=== PATIENT | female | born 1960 | race Caucasian/White ===

== ENCOUNTER 2017-08-04 12:31 | Emergency (ER) | payer OTHER, SELFPAY ==
[2017-08-04 12:36] VITALS: BP 150/77; PULSE 98; RESP 18; TEMP 36.8; O2SAT 93; BMI 27.4
--- NOTE | 2017-08-04 13:09 | CT_ITS ---
STUDY: CT BRAIN WITHOUT CONTRAST REASON FOR EXAM: Female, 57 years old. Intermittent headaches. RADIATION DOSAGE (If Supplied By Facility): CTDIvol = ( 60.81 ) mGy, DLP = ( 1135.50 ) mGycm TECHNIQUE: Transaxial CT imaging of the brain was performed without administration of intravenous contrast material. Individualized dose optimization techniques were used for this CT. COMPARISON: None. FINDINGS: Normal soft tissue structures. Normal calvarium. Normal size ventricles and extra-axial spaces for the patient's age. Normal white matter tracts of the cerebral hemispheres. Normal basal ganglia and thalami. Normal brainstem. Normal cerebellum. There is no intracranial hemorrhage. There are no findings of an acute ischemic infarction. Mucosal thickening of the left frontal sinus. CT/Brain/Head without Contrast IMPRESSION: Mucosal thickening of the left frontal sinus. Electronically Signed: Kenny Stanton MD at 14:01 EST Tel [phone], Service support ,
[2017-08-04] MEDS: 0.9% Normal Saline 1,000 ML 250 ML IV (13:28)
[2017-08-04 13:30] VITALS: BP 125/76; PULSE 96; RESP 18; O2SAT 93
[2017-08-04 13:41] LABS: Absolute Lymphocyte Count 2.84 X10^3/ul (0.83-4.51); Absolute Neutrophil Count 2.2 X10^3/uL (2.0-7.7); Basophil# 0.02 X10^3/uL; Basophil% 0.3 % (0-1); Eosinophil# 0.19 X10^3/uL; Eosinophils% 3.3 % (0-5); Hematocrit 41.8 % (37-47); Hemoglobin 13.7 g/dl (12.0-15.0); Lymphocyte # 2.84 X10^3/ul (4.0); Lymphocyte % 48.8 % (19-41); Mean Corp Hgb Conc 32.8 g/gl (32-36); Mean Corpuscular Hgb 30.9 pg (27.0-32.0); Mean Corpuscular Volume 94.4 fL (81-99); Monocyte# 0.52 X10^3/uL; Monocyte% 8.9 % (0-10); Neutrophil # 2.24 X10^3/uL (2.7-7.7); Neutrophil % 38.5 % (47-70); Platelet Count 178 K/mm3 (150-450); RBC Distribution Width CV 13.2 % (11.6-14.6); RBC Distribution Width SD 45.2 fl (35.1-43.9); Red Blood Count 4.43 M/mm3 (4.2-5.4); White Blood Count 5.8 K/mm3 (4.4-11.0)
[2017-08-04 13:43] LABS: POSITIVE COUNT NO; POSITIVE DIFFERENTIAL NO; POSITIVE MORPHOLOGY NO
[2017-08-04 13:47] LABS: Erythrocyte Sedimentation Rate 27 mm/hr (0-30)
[2017-08-04 13:53] LABS: ALB/GLOB Ratio 0.8 RATIO (0.9-2.4); AST(SGOT) 73 U/L (15-37); Alanine Aminotransfer ALT/SGPT 105 U/L (13-56); Albumin, Serum 3.6 g/dL (3.2-5.0); Alkaline Phosphatase 144 U/L (45-117); Anion Gap 7 (5-15); BUN 9 mg/dL (7-18); BUN/Creat Ratio 10.4 RATIO (10-20); Calcium,Total 8.5 mg/dL (8.5-10.1); Chloride 109 mmol/L (98-107); Creatinine, Serum 0.87 mg/dL (0.55-1.02); EST Glomerular Filtration Rate 72 mL/min (>60); Est Glom Filt Rate - Afr Amer 87 mL/min (>60); Estimated Creatinine Clearance 56.43 ml/min; Globulin 4.3 g/dL (2.2-4.2); Glucose 139 mg/dL (74-106); Potassium 3.9 mmol/L (3.5-5.1); Protein, Total 7.9 g/dL (6.4-8.2); Sodium Level 141 mmol/L (136-145)
[2017-08-04 14:07] LABS: Lactic Acid 1.6 mmol/L (0.4-2.0)
[2017-08-04 14:28] VITALS: BP 146/77; PULSE 92; RESP 20; O2SAT 97
--- NOTE | 2017-08-04 14:39 | ED.RN ---
this rn in room to medicate pt. pt alternately moaning and crying. pt states omg it hurts so bad, i can't stand thispt continues with cloth over eyes refusing to look at rn. pt medicated. as this rn is talking pt peeks out under cloth and immediately sits up. pt states oh my I love your hair, I want to do that but am afraid pt . dr whitfield awaresits up, talks to this rn with eyes wide open, smile on face , exuberant demeanor. pt then begins can i have a bandage for my knee.. i was doing a ballerina twirl and hit it. pt then thanks this rn
[2017-08-04 14:54] VITALS: BP 142/68; PULSE 88; RESP 20; O2SAT 96
--- NOTE | 2017-08-04 15:44 | ED.VISSUMM ---
- ER Visit Summary Date of Service: 08/04/17 Chief Complaint: Headache with onset 3 days ago History of Present Illness: The patient is a 57 F history of rheumatoid arthritis, ankylosing Spondylitis was prescribed and Enbrel 2 months ago hence with severe bifrontal bitemporal retro-orbital headache that is worse with lights. She denies fever, chills or night sweats. She denies double vision, loss of vision or blurred vision. She denies pain with movement of her eyes. She denies rhinorrhea, postnasal drainage or sore throat. She denies ear pain. She has no history of migraine headaches. She denies any neck pain or stiffness. She denies any cardiac, respiratory or musculoskeletal symptoms. She denies dysuria, frequency, urgency or hematuria. She denies any skin lesions. She denies any paresthesia, anesthesia or motor weakness. She denies trouble with balance. There is no history of trauma. Of note answered most of the questions initially. I spoke to the bmw service technician because patient told her that her 30th anniversary and was able to get up from the examination, and get onto the CT table and appeared in no distress. I also was informed by her nurse, Laureano, that she twirled and even laughed at one point. She then began to cry and complain of severe frontal bitemporal headache.. When she was reexamined. She began to cry and stated she did not want to be taken off the Enbrel because she could not live in constant pain. Physical Examination: Elderly woman who has a wet rag and ice bag over her forehead. She has a rag over her eyes because of reported photophobia. There is pain to palpation over the frontal and maxillary sinuses. Pupils are equal round reactive. Extraocular muscles are intact. Funduscopic exam reveals no papilledema and there is no evidence of photophobia. Sclera is white and conjunctivae are pink. Neck is supple with no meningeal findings. Heart is regular without murmur, gallop or rub. S1 and S2 are normal. Lungs are clear to auscultation with good movement of air bilaterally. Abdomen is soft nontender. Patient is alert and oriented ?3. Motor is 5 over 5. Sensory is intact. DTRs are symmetric with no clonus or Babinski sign. Cranial 2 through 12 are intact. Cerebellar testing is normal. Test Results: T of the head reveals left maxillary mucosal thickening, only. White count is normal with 39% segs 0 bands 49% lymphs BMP is remarkable glucose 139. Hepatic profile reveals a ALT and AST of 105 and 73 which is slightly elevated from May 31, 2017. ESR is normal, 27. Emergency Department Course and Treatment: To evaluate patient's headache and the fact that she does not normally complain of headache is on immunosuppressive meds CT of the head as well as blood work was obtained. Because of her age of sed rate was obtained and because there is a concern for lupus-like presentation. Zofran was ordered which she declined. Her allergy is vomiting and diarrhea. She was treated with promethazine and morphine. There has been periods where she has been pain-free and happy and moments where she is in exquisite severe pain. A call was placed to her business objects architect and there is been no response. Spoke with Haleigh Kim protective services social worker. She states she will either see patient or have another protective services social worker see her. Treatment Plan: wire worker/case monitor to see patient and Disposition: Pending Plan is to discharge home after 30 mg of Toradol IV push. Outpatient follow-up at [facility]. Impression: 1. Acute bifrontal temporal headache of unknown etiology 2. History of autoimmune disorder on immunosuppressive meds 3. History of GERD This note was generated with [employer] dictation software. It may contain incorrect words, spelling, and punctuation that were not noted in review of the chart prior to signing ED Disposition - Plan for ED Patient: Disposition: Home or Assisted Living Chief Complaint: Headache Instructions: ED Cephalgia Unspecified Referrals: Benson Mckeon DO [Primary Care Provider] - As Needed
--- NOTE | 2017-08-04 16:00 | ED.DCSUM_ITS ---
- ER Visit Summary Date of Service: 08/04/17 Chief Complaint: Headache with onset 3 days ago History of Present Illness: The patient is a 57 F history of rheumatoid arthritis, ankylosing Spondylitis was prescribed and Enbrel 2 months ago hence with severe bifrontal bitemporal retro-orbital headache that is worse with lights. She denies fever, chills or night sweats. She denies double vision, loss of vision or blurred vision. She denies pain with movement of her eyes. She denies rhinorrhea, postnasal drainage or sore throat. She denies ear pain. She has no history of migraine headaches. She denies any neck pain or stiffness. She denies any cardiac, respiratory or musculoskeletal symptoms. She denies dysuria, frequency, urgency or hematuria. She denies any skin lesions. She denies any paresthesia, anesthesia or motor weakness. She denies trouble with balance. There is no history of trauma. Of note answered most of the questions initially. I spoke to the associate professor of radiology because patient told her that her 30th anniversary and was able to get up from the examination, and get onto the CT table and appeared in no distress. I also was informed by her nurse, Lauerano, that she twirled and even laughed at one point. She then began to cry and complain of severe frontal bitemporal headache.. When she was reexamined. She began to cry and stated she did not want to be taken off the Enbrel because she could not live in constant pain. Physical Examination: Elderly woman who has a wet rag and ice bag over her forehead. She has a rag over her eyes because of reported photophobia. There is pain to palpation over the frontal and maxillary sinuses. Pupils are equal round reactive. Extraocular muscles are intact. Funduscopic exam reveals no papilledema and there is no evidence of photophobia. Sclera is white and conjunctivae are pink. Neck is supple with no meningeal findings. Heart is regular without murmur, gallop or rub. S1 and S2 are normal. Lungs are clear to auscultation with good movement of air bilaterally. Abdomen is soft nontender. Patient is alert and oriented ?3. Motor is 5 over 5. Sensory is intact. DTRs are symmetric with no clonus or Babinski sign. Cranial 2 through 12 are intact. Cerebellar testing is normal. Test Results: T of the head reveals left maxillary mucosal thickening, only. White count is normal with 39% segs 0 bands 49% lymphs BMP is remarkable glucose 139. Hepatic profile reveals a ALT and AST of 105 and 73 which is slightly elevated from May 31, 2017. ESR is normal, 27. Emergency Department Course and Treatment: To evaluate patient's headache and the fact that she does not normally complain of headache is on immunosuppressive meds CT of the head as well as blood work was obtained. Because of her age of sed rate was obtained and because there is a concern for lupus-like presentation. Zofran was ordered which she declined. Her allergy is vomiting and diarrhea. She was treated with promethazine and morphine. There has been periods where she has been pain-free and happy and moments where she is in exquisite severe pain. A call was placed to her nursing informatics specialist and there is been no response. Spoke with Haleigh Kim director social. She states she will either see patient or have another director social see her. Treatment Plan: optical worker/dependency case manager to see patient and Disposition: Pending Plan is to discharge home after 30 mg of Toradol IV push. Outpatient follow-up at [facility]. Impression: 1. Acute bifrontal temporal headache of unknown etiology 2. History of autoimmune disorder on immunosuppressive meds 3. History of GERD This note was generated with [employer] dictation software. It may contain incorrect words, spelling, and punctuation that were not noted in review of the chart prior to signing ED Disposition - Plan for ED Patient: Disposition: Home or Assisted Living Chief Complaint: Headache Instructions: ED Cephalgia Unspecified Referrals: Benson Mckeon DO [Primary Care Provider] - As Needed
[2017-08-04] MEDS: Ketorolac 30 MG/ML Syringe IV (17:02)
[2017-08-04 17:05] VITALS: BP 128/72; PULSE 87; RESP 18; O2SAT 98
[2017-08-04 17:11] VITALS: BP 128/67; PULSE 88; RESP 18
== END 2017-08-04 17:24 | disposition home or self-care (01) ==
PROVIDERS: Emergency Provider Emergency Medicine; Family Provider Preventive Medicine Occupational Medicine; PCP Preventive Medicine Occupational Medicine
DX: R51 Headache (principal); M06.9 Rheumatoid arthritis, unspecified; M45.9 Ankylosing spondylitis of unspecified sites in spine; K21.9 Gastro-esophageal reflux disease without esophagitis; R11.2 Nausea with vomiting, unspecified; E66.9 Obesity, unspecified; Z79.899 Other long term (current) drug therapy
CPT/HCPCS: 70450; 80053; 83605; 85025; 85652; 96361; 96374; 96375; 96376; 99285; J7030; A4216; J2405

== ENCOUNTER → 2017-09-02 11:48 | Outpatient (CLI) | payer OTHER, SELFPAY ==
[2017-09-02 12:33] LABS: Absolute Lymphocyte Count 3.06 X10^3/ul (0.83-4.51); Absolute Neutrophil Count 1.7 X10^3/uL (2.0-7.7); Basophil# 0.02 X10^3/uL; Basophil% 0.4 % (0-1); Eosinophil# 0.18 X10^3/uL; Eosinophils% 3.2 % (0-5); Hematocrit 40.7 % (37-47); Hemoglobin 13.2 g/dl (12.0-15.0); Lymphocyte # 3.06 X10^3/ul (4.0); Lymphocyte % 54.9 % (19-41); Mean Corp Hgb Conc 32.4 g/gl (32-36); Mean Corpuscular Hgb 30.6 pg (27.0-32.0); Mean Corpuscular Volume 94.2 fL (81-99); Mean Platelet Vol. 9.3 fl (6.2-12.0); Monocyte# 0.58 X10^3/uL; Monocyte% 10.4 % (0-10); Neutrophil # 1.72 X10^3/uL (2.7-7.7); Neutrophil % 30.9 % (47-70); Platelet Count 191 K/mm3 (150-450); RBC Distribution Width CV 13.8 % (11.6-14.6); RBC Distribution Width SD 45.7 fl (35.1-43.9); Red Blood Count 4.32 M/mm3 (4.2-5.4); White Blood Count 5.6 K/mm3 (4.4-11.0)
[2017-09-02 12:34] LABS: POSITIVE COUNT NO; POSITIVE DIFFERENTIAL NO; POSITIVE MORPHOLOGY NO
[2017-09-02 13:12] LABS: ALB/GLOB Ratio 0.9 RATIO (0.9-2.4); AST(SGOT) 133 U/L (15-37); Alanine Aminotransfer ALT/SGPT 164 U/L (13-56); Albumin, Serum 3.8 g/dL (3.2-5.0); Alkaline Phosphatase 151 U/L (45-117); Anion Gap 10 (5-15); BUN 13 mg/dL (7-18); BUN/Creat Ratio 14.2 RATIO (10-20); Calcium,Total 9.1 mg/dL (8.5-10.1); Chloride 101 mmol/L (98-107); Creatinine, Serum 0.91 mg/dL (0.55-1.02); EST Glomerular Filtration Rate 67 mL/min (>60); Est Glom Filt Rate - Afr Amer 82 mL/min (>60); Globulin 4.2 g/dL (2.2-4.2); Glucose 139 mg/dL (74-106); Potassium 3.7 mmol/L (3.5-5.1); Sodium Level 137 mmol/L (136-145)
== END ==
PROVIDERS: Family Provider Preventive Medicine Occupational Medicine; PCP Preventive Medicine Occupational Medicine; Visit Provider Internal Medicine Rheumatology
DX: M06.09 Rheumatoid arthritis without rheumatoid factor, multiple sites (principal); M35.00 Sjogren syndrome, unspecified; M47.897 Other spondylosis, lumbosacral region; E78.5 Hyperlipidemia, unspecified; Q79.0 Congenital diaphragmatic hernia; F31.9 Bipolar disorder, unspecified; F90.9 Attention-deficit hyperactivity disorder, unspecified type; Z79.899 Other long term (current) drug therapy
CPT/HCPCS: 36415; 80053; 85025

== ENCOUNTER 2017-10-15 21:58 | Emergency (ER) | payer OTHER, SELFPAY ==
[2017-10-15 22:01] VITALS: BP 159/83; PULSE 101; RESP 17; TEMP 36; O2SAT 96; BMI 28.3
--- NOTE | 2017-10-15 22:28 | ED.VISSUMM ---
- ER Visit Summary Date of Service: 10/15/17 Chief Complaint: [] Itching History of Present Illness: The patient is a 57 F [] with a history of rheumatoid arthritis and other unknown autoimmune disease presents with itching in the bilateral upper and lower extremities. She reports symptoms started approximately 1 month ago with significant worsening the last 2-3 days. She is on Enbrel for her rheumatoid arthritis. She reports she has increasing liver enzymes for unknown reason which she attributes is the probably underlying cause for her itching. She appears anxious during history and physical examination. Denies fevers. Denies rash. Physical Examination: [] Afebrile, vital signs stable. 57-year-old female in no acute distress. No obvious rash to the bilateral upper and lower extremities. Small area of erythema secondary to scratching. Cardiovascular exam is regular rate and rhythm. Lungs clear to auscultation. Abdomen is soft and nontender. Remainder of exam is unremarkable. Test Results: [] None. Emergency Department Course and Treatment: [] Patient given Vistaril and prednisone orally with prescriptions for the same. She is reportedly seeing her specialist in [place] tomorrow. Treatment Plan: [] Follow-up with specialist tomorrow. Disposition: [] Discharge, stable. Impression: [] Urticaria This note was generated with [employer] dictation software. It may contain incorrect words, spelling, and punctuation that were not noted in review of the chart prior to signing ED Disposition - Plan for ED Patient: Chief Complaint: Itching Referrals: Benson Mckeon DO [Primary Care Provider] -
--- NOTE | 2017-10-15 22:31 | ED.DCSUM_ITS ---
- ER Visit Summary Date of Service: 10/15/17 Chief Complaint: [] Itching History of Present Illness: The patient is a 57 F [] with a history of rheumatoid arthritis and other unknown autoimmune disease presents with itching in the bilateral upper and lower extremities. She reports symptoms started approximately 1 month ago with significant worsening the last 2-3 days. She is on Enbrel for her rheumatoid arthritis. She reports she has increasing liver enzymes for unknown reason which she attributes is the probably underlying cause for her itching. She appears anxious during history and physical examination. Denies fevers. Denies rash. Physical Examination: [] Afebrile, vital signs stable. 57-year-old female in no acute distress. No obvious rash to the bilateral upper and lower extremities. Small area of erythema secondary to scratching. Cardiovascular exam is regular rate and rhythm. Lungs clear to auscultation. Abdomen is soft and nontender. Remainder of exam is unremarkable. Test Results: [] None. Emergency Department Course and Treatment: [] Patient given Vistaril and prednisone orally with prescriptions for the same. She is reportedly seeing her specialist in [place] tomorrow. Treatment Plan: [] Follow-up with specialist tomorrow. Disposition: [] Discharge, stable. Impression: [] Urticaria This note was generated with [employer] dictation software. It may contain incorrect words, spelling, and punctuation that were not noted in review of the chart prior to signing ED Disposition - Plan for ED Patient: Chief Complaint: Itching Referrals: Benson Mckeon DO [Primary Care Provider] -
--- NOTE | 2017-10-15 22:31 | ED.DEP ---
ED Disposition - Plan for ED Patient: Disposition: Home or Assisted Living Chief Complaint: Itching Instructions: ED Urticaria Prescriptions: Hydroxyzine Pamoate [Vistaril] 50 mg PO TID PRN PRN #15 cap PRN Reason: Itching Prednisone [Deltasone] 40 mg PO DAILY #5 tab Referrals: Benson Mckeon DO [Primary Care Provider] -
[2017-10-15] MEDS: predniSONE 20 MG Tablet 40 MG PO (22:45)
[2017-10-15] MEDS: hydrOXYzine PAM 25 MG Capsule PO (22:45)
== END 2017-10-15 22:48 | disposition home or self-care (01) ==
PROVIDERS: Emergency Provider Emergency Medicine; Family Provider Preventive Medicine Occupational Medicine; PCP Preventive Medicine Occupational Medicine
DX: L50.9 Urticaria, unspecified (principal); M06.9 Rheumatoid arthritis, unspecified; M35.9 Systemic involvement of connective tissue, unspecified; F32.9 Major depressive disorder, single episode, unspecified; Z79.899 Other long term (current) drug therapy
CPT/HCPCS: 99283

== ENCOUNTER 2017-11-18 20:10 | Emergency (ER) | payer OTHER, SELFPAY ==
[2017-11-18 20:11] VITALS: BP 133/86; PULSE 100; RESP 15; TEMP 36.8; BMI 28.3
--- NOTE | 2017-11-18 20:24 | EKG12_ITS ---
Test Reason : CP,N/V Blood Pressure : / mmHG Vent. Rate : 093 BPM Atrial Rate : 093 BPM P-R Int : 130 ms QRS Dur : 072 ms QT Int : 342 ms P-R-T Axes : 051 022 057 degrees QTc Int : 425 ms Normal sinus rhythm Normal ECG Confirmed by ANTONIA MEJÍA, DAVID ([id number]), metropolitan editor DAVID BENITEZ ([id number]) on 11/22/2017 2:22:12 PM Referred By: JANETH Confirmed By:DAVID KNIGHT MD
--- NOTE | 2017-11-18 20:24 | ED.VISSUMM ---
- ER Visit Summary Date of Service: 11/18/17 Chief Complaint: Nausea History of Present Illness: The patient is a 57 F who is had 5 days of nausea. She states that she is felt nauseous most of this week. She started with abdominal pain with it but that has since resolved. Denies diarrhea or constipation. She has not had vomiting with this. No fevers. No urinary symptoms. She states that last night she did develop some chest pressure. She has a history of elevated liver enzymes. The etiology of this is unknown. She is scheduled to see a air pollution engineer for this. Her primary care physician called her in Zofran but she has a history of migraines with this so she has not took it. Physical Examination: Vital signs reviewed. HEENT exam unremarkable. Heart is regular rate and rhythm without murmurs. Lungs are clear to auscultation. Abdomen is soft and nontender. Extremities reveal no edema. Peripheral pulses are equal. Skin exam normal. Neurologic exam normal. Test Results: [Laboratory studies are normal except for an alkaline phosphatase of 147, ALT 148, AST 141 Emergency Department Course and Treatment: Patient was given IV Phenergan. She states that her nausea is improved but not resolved. She does not like to take Zofran because it gives her migraine headaches. I will send her home with Phenergan. She has a gastroenterology appointment in a couple of weeks. She will keep this appointment and try to eat bland foods in the meantime. Treatment Plan: [] Disposition: Discharge Impression: Nausea This note was generated with [employer] dictation software. It may contain incorrect words, spelling, and punctuation that were not noted in review of the chart prior to signing ED Disposition - Plan for ED Patient: Chief Complaint: Nausea/Vomiting Referrals: Benson Mckeon DO [Primary Care Provider] -
[2017-11-18 20:25] VITALS: BP 128/80; PULSE 93; RESP 15; O2SAT 93
[2017-11-18 20:32] LABS: Absolute Lymphocyte Count 3.46 X10^3/ul (0.83-4.51); Absolute Neutrophil Count 1.8 X10^3/uL (2.0-7.7); Basophil# 0.01 X10^3/uL; Basophil% 0.2 % (0-1); Eosinophil# 0.16 X10^3/uL; Eosinophils% 2.6 % (0-5); Hematocrit 43.2 % (37-47); Hemoglobin 14.5 g/dl (12.0-15.0); Lymphocyte # 3.46 X10^3/ul (4.0); Lymphocyte % 56.9 % (19-41); Mean Corp Hgb Conc 33.6 g/gl (32-36); Mean Corpuscular Hgb 30.9 pg (27.0-32.0); Mean Corpuscular Volume 91.9 fL (81-99); Monocyte# 0.61 X10^3/uL; Neutrophil # 1.83 X10^3/uL (2.7-7.7); Neutrophil % 30.1 % (47-70); POSITIVE DIFFERENTIAL NO; Platelet Count 179 K/mm3 (150-450); RBC Distribution Width CV 13.5 % (11.6-14.6); RBC Distribution Width SD 45.7 fl (35.1-43.9); White Blood Count 6.1 K/mm3 (4.4-11.0)
[2017-11-18 20:33] LABS: POSITIVE COUNT NO; POSITIVE MORPHOLOGY NO
[2017-11-18] MEDS: proMETHazine 25 MG/ML Syringe 12.5 MG IV (20:41)
[2017-11-18 20:51] LABS: ALB/GLOB Ratio 0.9 RATIO (0.9-2.4); AST(SGOT) 141 U/L (15-37); Alanine Aminotransfer ALT/SGPT 148 U/L (13-56); Albumin, Serum 3.8 g/dL (3.2-5.0); Alkaline Phosphatase 147 U/L (45-117); Anion Gap 5 (5-15); BUN 8 mg/dL (7-18); BUN/Creat Ratio 7.6 RATIO (10-20); Calcium,Total 8.7 mg/dL (8.5-10.1); Chloride 105 mmol/L (98-107); Creatinine, Serum 1.05 mg/dL (0.55-1.02); EST Glomerular Filtration Rate 57 mL/min (>60); Est Glom Filt Rate - Afr Amer 69 mL/min (>60); Estimated Creatinine Clearance 46.75 ml/min; Globulin 4.2 g/dL (2.2-4.2); Glucose 96 mg/dL (74-106); Lipase 203 U/L (73-393); Potassium 3.9 mmol/L (3.5-5.1); Sodium Level 137 mmol/L (136-145)
--- NOTE | 2017-11-18 21:11 | ED.DEP ---
ED Disposition - Plan for ED Patient: Disposition: Home or Assisted Living Chief Complaint: Nausea/Vomiting Instructions: ED Nausea Vomiting Prescriptions: proMETHazine tablet [Phenergan] 25 mg PO Q6H PRN PRN #20 tab PRN Reason: Nausea Referrals: Benson Mckeon DO [Primary Care Provider] -
[2017-11-18 21:30] VITALS: BP 111/80; PULSE 85; RESP 16; O2SAT 94
== END 2017-11-18 21:31 | disposition home or self-care (01) ==
PROVIDERS: Emergency Provider Emergency Medicine; Family Provider Preventive Medicine Occupational Medicine; PCP Preventive Medicine Occupational Medicine
DX: R11.0 Nausea (principal); R74.0 Nonspecific elevation of levels of transaminase and lactic acid dehydrogenase [LDH]; R07.9 Chest pain, unspecified; M19.90 Unspecified osteoarthritis, unspecified site; Z79.899 Other long term (current) drug therapy
CPT/HCPCS: 80053; 83690; 84484; 85025; 93005; 96361; 96374; 99283; J7030; J7040; A4216

== ENCOUNTER 2017-12-14 23:32 | Emergency (ER) | payer OTHER, SELFPAY ==
[2017-12-14 23:33] VITALS: BP 127/77; PULSE 97; RESP 18; TEMP 36.7; O2SAT 92; BMI 27.2
--- NOTE | 2017-12-14 23:42 | ED.VISSUMM ---
- ER Visit Summary Date of Service: 12/14/17 Chief Complaint: Back pain History of Present Illness: The patient is a 57 F presenting with back pain. States this started yesterday. 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 She has pain in her lower back. It radiates to her left leg. She has had no bowel or bladder incontinence. No numbness or weakness. She is able to ambulate. She tried ibuprofen, Valium, Ultram at home. Physical Examination: Vitals are stable. Patient is afebrile. Alert no acute distress. HEENT exam is unremarkable. Neck is supple. Lungs are clear and equal bilaterally. Heart is regular rate and rhythm. Abdomen is soft nontender nondistended. Back: Bilateral lumbar paraspinal muscle tenderness with no midline tenderness. Extremities are unremarkable. Skin is warm and dry. No focal neurologic deficit. Remainder of exam is unremarkable. Emergency Department Course and Treatment: Patient given morphine and Phenergan IM. She is feeling improved. She is advised to rest and continue her home medications. She is advised return to ED for worsening complaints. Disposition: Discharge home Impression: Lumbar strain This note was generated with [employer] dictation software. It may contain incorrect words, spelling, and punctuation that were not noted in review of the chart prior to signing ED Disposition - Plan for ED Patient: Chief Complaint: Back Referrals: Benson Mckeon DO [Primary Care Provider] -
[2017-12-14] MEDS: Morphine 4 MG/ML Syringe 8 MG IM (23:55)
[2017-12-15] MEDS: proMETHazine 25 MG/ML Syringe 6.25 MG IM (00:10)
--- NOTE | 2017-12-15 00:26 | ED.DEP ---
ED Disposition - Plan for ED Patient: Chief Complaint: Back Instructions: ED Sprain Strain Lumbar Referrals: Benson Mckeon DO [Primary Care Provider] -
[2017-12-15 00:36] VITALS: PULSE 68; RESP 16; O2SAT 98
== END 2017-12-15 00:37 | disposition home or self-care (01) ==
LOC: ED 12-15 00:07
PROVIDERS: Emergency Provider Emergency Medicine; Family Provider Preventive Medicine Occupational Medicine; PCP Preventive Medicine Occupational Medicine
DX: S39.012A Strain of muscle, fascia and tendon of lower back, initial encounter (principal); X50.1XXA Overexertion from prolonged static or awkward postures, initial encounter; Y93.H2 Activity, gardening and landscaping; Y92.9 Unspecified place or not applicable; Y99.9 Unspecified external cause status; Z79.899 Other long term (current) drug therapy
CPT/HCPCS: 96372; 99282

== ENCOUNTER 2017-12-20 21:52 | Emergency (ER) | payer OTHER, SELFPAY ==
[2017-12-20 21:53] VITALS: BP 132/78; PULSE 97; RESP 20; TEMP 36.1; O2SAT 94; BMI 28.2
--- NOTE | 2017-12-20 22:33 | ED.DCSUM_ITS ---
- ER Visit Summary Date of Service: 12/20/17 Chief Complaint: Back pain History of Present Illness: The patient is a 57 F worsening back pain today after playing with her grandkids, she states she was lifting them, one weight 60 pounds. Increasing pain. There is no falls or direct injuries. Seen 6 days ago for similar when she was working in the yard. She is on Valium and Ultram for chronic sciatica symptoms. States pain on the left leg. No loss of bowel or bladder control. Also history of rheumatoid arthritis, she has an appointment with her rheumatoid arthritis physician in [place] tomorrow. Patient states she ran out of her Advil. None taken today. Last dose of medication was 5 hours ago. Symptoms worse with movement. States when she was here 6 days ago, she given a shot of morphine and Phenergan which helped her symptoms. Her symptoms were improved prior to symptoms recurring today. Physical Examination: General: Alert and oriented ?3, no acute distress HEENT: Normocephalic, atraumatic. Moist mucosa membranes Neck: supple, nontender. Cardiovascular: Regular rate and rhythm, no murmurs Respiratory: Normal breath sounds, symmetric, no distress Back: No midline tenderness. Mild tender palpation left lumbar. Straight leg test negative. 2+ patellar reflexes. Abdomen: Soft, nontender, nondistended Extremities: Nontender, no edema, pulses intact ?4 Neuro: no focal neurological deficits. Test Results: [] Emergency Department Course and Treatment: Patient with no cauda equina symptoms. Will treat with subcu morphine, IM Phenergan due to patient states needing nausea medicines with her opiate medications. She did not take any NSAIDs a day, IM Toradol was given. No history of gastric ulcers or kidney injuries. She continue with Advil at home. She has her home Valium and Ultram to continue. She will keep her appointment with her rheumatoid physician tomorrow. All questions were answered. Treatment Plan: [] Disposition: Discharge Impression: Acute lumbar strain This note was generated with [employer] dictation software. It may contain incorrect words, spelling, and punctuation that were not noted in review of the chart prior to signing ED Disposition - Plan for ED Patient: Disposition: Home or Assisted Living Chief Complaint: Back Diagnosis: Acute lumbar myofascial strain Instructions: ED Sprain Strain Lumbar Referrals: Linda,Benson, DO [Primary Care Provider] - 3-5 Days
[2017-12-20] MEDS: Ketorolac 60 MG/2 ML Vial IM (22:53)
[2017-12-20] MEDS: proMETHazine 25 MG/ML Syringe 12.5 MG IM (22:54)
[2017-12-20] MEDS: Morphine 4 MG/ML Syringe SC (22:54)
[2017-12-20 23:06] VITALS: BP 125/72; PULSE 87; RESP 14; O2SAT 94
== END 2017-12-20 23:34 | disposition home or self-care (01) ==
PROVIDERS: Emergency Provider Emergency Medicine; Family Provider Preventive Medicine Occupational Medicine; PCP Preventive Medicine Occupational Medicine
DX: S39.012A Strain of muscle, fascia and tendon of lower back, initial encounter (principal); X50.9XXA Other and unspecified overexertion or strenuous movements or postures, initial encounter; Y93.9 Activity, unspecified; Y92.9 Unspecified place or not applicable; Y99.9 Unspecified external cause status; M06.9 Rheumatoid arthritis, unspecified; Z79.899 Other long term (current) drug therapy
CPT/HCPCS: 96372; 99282

== ENCOUNTER 2017-12-24 22:04 | Emergency (ER) | payer OTHER, SELFPAY ==
[2017-12-24 22:04] VITALS: BP 121/86; PULSE 96; RESP 20; TEMP 36.4; O2SAT 95; BMI 28.3
--- NOTE | 2017-12-24 22:30 | ED.VISSUMM ---
- ER Visit Summary Date of Service: 12/24/17 Chief Complaint: Back pain History of Present Illness: The patient is a 57 F presenting with back pain ?2 weeks. Patient states that she was chasing her grandson and this exacerbated her chronic back pain. She has an appointment with an arthritis specialist tomorrow morning in [place]. She states she cannot tolerate the pain until then. She has Tylenol and Ultram at home. She denies fever. Denies bowel or bladder incontinence. Denies numbness or weakness. She is able to ambulate with pain. Physical Examination: Vitals are stable. Patient is afebrile. Alert no acute distress. HEENT exam is unremarkable. Neck is supple. Lungs are clear and equal bilaterally. Heart is regular rate and rhythm. Abdomen is soft nontender nondistended. Back: Bilateral paraspinal lumbar muscle tenderness with no midline tenderness Extremities are unremarkable. Skin is warm and dry. No focal neurologic deficit. Normal strength and sensation Remainder of exam is unremarkable. Emergency Department Course and Treatment: Patient is given morphine, Phenergan IM. Patient is feeling much improved. She is advised to follow-up with her scheduled appointment tomorrow. Advised return to ED for worsening complaints. Disposition: Discharge home Impression: Acute on chronic back pain This note was generated with [employer] dictation software. It may contain incorrect words, spelling, and punctuation that were not noted in review of the chart prior to signing ED Disposition - Plan for ED Patient: Chief Complaint: Back Instructions: ED Neck Back Pain General Referrals: Benson Mckeon DO [Primary Care Provider] -
[2017-12-24] MEDS: proMETHazine 25 MG/ML Syringe 12.5 MG IM (22:41)
[2017-12-24] MEDS: morphine 8 MG/ML Syringe IM (22:41)
--- NOTE | 2017-12-24 23:25 | ED.DEP ---
ED Disposition - Plan for ED Patient: Chief Complaint: Back Instructions: ED Neck Back Pain General Referrals: Benson Mckeon DO [Primary Care Provider] -
[2017-12-24 23:50] VITALS: BP 122/86; PULSE 92; RESP 14; O2SAT 99
== END 2017-12-24 23:51 | disposition home or self-care (01) ==
LOC: ED 22:55
PROVIDERS: Emergency Provider Emergency Medicine; Family Provider Preventive Medicine Occupational Medicine; PCP Preventive Medicine Occupational Medicine
DX: M54.9 Dorsalgia, unspecified (principal); G89.29 Other chronic pain; Z79.899 Other long term (current) drug therapy
CPT/HCPCS: 96372; 99282

== ENCOUNTER 2018-01-15 12:58 | Emergency (ER) | payer OTHER, SELFPAY ==
[2018-01-15 12:59] VITALS: BP 149/93; PULSE 101; RESP 20; TEMP 36.8; O2SAT 92; BMI 27.5
[2018-01-15] MEDS: Ketorolac 15 MG/ML Vial IV (14:44)
[2018-01-15] MEDS: Metoclopramide 10 MG/2 ML Vial 5 MG IV (14:44)
[2018-01-15] MEDS: Morphine 4 MG/ML Syringe IV (14:44)
--- NOTE | 2018-01-15 15:21 | ED.VISSUMM ---
- ER Visit Summary Date of Service: 01/15/18 Chief Complaint: Bilateral low back pain History of Present Illness: The patient is a 57 F who presents with bilateral low back pain without radiculopathy. She denies bowel or bladder dysfunction other chronic problems for which she is scheduled for surgery to have a bladder stimulator placed. She denies foot drop. Denies quadricep weakness going up or down steps. She denies saddle paresthesia anesthesia. She prefers to sit versus standing. She reports chronic lower abdominal pain. She denies fever, chills night sweats. Her trauma was she reached for something and strained her back. She does have history of rheumatoid arthritis, depression and GERD, as well. She did report numbness lateral aspect proximal left leg only. Physical Examination: Blood pressure slightly elevated at 143/93. Patient has a depressed affect. HEENT exam is unremarkable. Heart is regular without murmur, gallop or rub. S1 and S2 are normal. Lungs are clear to auscultation with good movement of air bilaterally. Abdomen is remarkable for superpubic discomfort, which is a chronic problem. Examination low back reveals no abdomen allergy. Straight leg test is negative. Patella and ankle reflex are 1+ symmetric. EHL is intact. There is no clonus or Babinski sign. She has normal sensation. DP PT pulses are palpable. Test Results: None Emergency Department Course and Treatment: IV was established she was medicated with opiate analgesia and given Reglan because of reported allergy to Zofran. When she was reassessed at 1525. She was smiling with 95% reduction of her pain. Treatment Plan: Discharged home to follow with PCP Disposition: Discharged home in stable improved condition Impression: Bilateral low back pain without sciatica This note was generated with [employer] dictation software. It may contain incorrect words, spelling, and punctuation that were not noted in review of the chart prior to signing ED Disposition - Plan for ED Patient: Chief Complaint: Back Instructions: ED Sprain Strain Lumbar Referrals: Benson Mckeon DO [Primary Care Provider] - As Needed
[2018-01-15 15:22] VITALS: BP 109/68; PULSE 80; RESP 16; O2SAT 93
--- NOTE | 2018-01-15 15:24 | ED.DCSUM_ITS ---
- ER Visit Summary Date of Service: 01/15/18 Chief Complaint: Bilateral low back pain History of Present Illness: The patient is a 57 F who presents with bilateral low back pain without radiculopathy. She denies bowel or bladder dysfunction other chronic problems for which she is scheduled for surgery to have a bladder stimulator placed. She denies foot drop. Denies quadricep weakness going up or down steps. She denies saddle paresthesia anesthesia. She prefers to sit versus standing. She reports chronic lower abdominal pain. She denies fever, chills night sweats. Her trauma was she reached for something and strained her back. She does have history of rheumatoid arthritis, depression and GERD, as well. She did report numbness lateral aspect proximal left leg only. Physical Examination: Blood pressure slightly elevated at 143/93. Patient has a depressed affect. HEENT exam is unremarkable. Heart is regular without murmur, gallop or rub. S1 and S2 are normal. Lungs are clear to auscultation with good movement of air bilaterally. Abdomen is remarkable for superpubic discomfort, which is a chronic problem. Examination low back reveals no abdomen allergy. Straight leg test is negative. Patella and ankle reflex are 1 + symmetric. EHL is intact. There is no clonus or Babinski sign. She has normal sensation. DP PT pulses are palpable. Test Results: None Emergency Department Course and Treatment: IV was established she was medicated with opiate analgesia and given Reglan because of reported allergy to Zofran. When she was reassessed at 1525. She was smiling with 95% reduction of her pain. Treatment Plan: Discharged home to follow with PCP Disposition: Discharged home in stable improved condition Impression: Bilateral low back pain without sciatica This note was generated with [employer] dictation software. It may contain incorrect words, spelling, and punctuation that were not noted in review of the chart prior to signing ED Disposition - Plan for ED Patient: Chief Complaint: Back Instructions: ED Sprain Strain Lumbar Referrals: Benson Mckeon DO [Primary Care Provider] - As Needed
== END 2018-01-15 15:39 | disposition home or self-care (01) ==
PROVIDERS: Emergency Provider Emergency Medicine; Family Provider Preventive Medicine Occupational Medicine; PCP Preventive Medicine Occupational Medicine
DX: M54.5 Low back pain (principal); R20.0 Anesthesia of skin; M06.9 Rheumatoid arthritis, unspecified; K21.9 Gastro-esophageal reflux disease without esophagitis; F32.9 Major depressive disorder, single episode, unspecified; Z79.899 Other long term (current) drug therapy
CPT/HCPCS: 96374; 96375; 99283

== ENCOUNTER 2018-03-09 23:05 | Emergency (ER) | payer OTHER, SELFPAY ==
[2018-03-09 23:05] VITALS: BP 123/73; PULSE 90; RESP 18; TEMP 37; O2SAT 96; BMI 28.3
--- NOTE | 2018-03-09 23:42 | ED.VISSUMM ---
- ER Visit Summary Date of Service: 03/09/18 Chief Complaint: Back pain History of Present Illness: The patient is a 57 F worsening lower back pain since yesterday. History of rheumatoid arthritis with chronic back pain on Enbrel injections. Followed by rheumatology in [place]. States there is plans of possible infusion. She gets tramadol prescription by her PCP. EGD a month ago in [place] was told she had gastritis. No melena. Denies any loss of bowel or bladder control. Pain worse with movement. No fevers. Physical Examination: General: Alert and oriented ?3, no acute distress HEENT: Normocephalic, atraumatic. Moist mucosa membranes Neck: supple, nontender. Cardiovascular: Regular rate and rhythm, no murmurs Respiratory: Normal breath sounds, symmetric, no distress Abdomen: Soft, nontender, nondistended Back: No midline tenderness, reproducible paralumbar tenderness. Straight leg test negative bilaterally. 1+ patellar reflex bilaterally. Extremities: Nontender, no edema, pulses intact ?4 Neuro: no focal neurological deficits. Test Results: [] Emergency Department Course and Treatment: Patient similar presentation in the past. New lifting activities causing her symptoms. No cauda equina symptoms. Treated morphine subcu along with normal Phenergan injection for nausea symptoms. We will hold on NSAIDs due to her reported history of recent gastritis from EGD a month ago. She states she had elevated liver enzymes are for Tylenol cannot be taken also. She does have prescription of Ultram. She will follow-up as an outpatient. All questions were answered. Treatment Plan: [] Disposition: Discharge Impression: 1. Acute lumbar sacral strain 2. Acute on chronic back pain This note was generated with [employer] dictation software. It may contain incorrect words, spelling, and punctuation that were not noted in review of the chart prior to signing ED Disposition - Plan for ED Patient: Disposition: Home or Assisted Living Chief Complaint: Back Diagnosis: Lumbar strain Instructions: ED Sprain Strain Lumbar Referrals: Benson Mckeon DO [Primary Care Provider] - 3-5 Days
--- NOTE | 2018-03-09 23:45 | ED.DCSUM_ITS ---
- ER Visit Summary Date of Service: 03/09/18 Chief Complaint: Back pain History of Present Illness: The patient is a 57 F worsening lower back pain since yesterday. History of rheumatoid arthritis with chronic back pain on Enbrel injections. Followed by rheumatology in [place]. States there is plans of possible infusion. She gets tramadol prescription by her PCP. EGD a month ago in [place] was told she had gastritis. No melena. Denies any loss of bowel or bladder control. Pain worse with movement. No fevers. Physical Examination: General: Alert and oriented ?3, no acute distress HEENT: Normocephalic, atraumatic. Moist mucosa membranes Neck: supple, nontender. Cardiovascular: Regular rate and rhythm, no murmurs Respiratory: Normal breath sounds, symmetric, no distress Abdomen: Soft, nontender, nondistended Back: No midline tenderness, reproducible paralumbar tenderness. Straight leg test negative bilaterally. 1+ patellar reflex bilaterally. Extremities: Nontender, no edema, pulses intact ?4 Neuro: no focal neurological deficits. Test Results: [] Emergency Department Course and Treatment: Patient similar presentation in the past. New lifting activities causing her symptoms. No cauda equina symptoms. Treated morphine subcu along with normal Phenergan injection for nausea symptoms. We will hold on NSAIDs due to her reported history of recent gastritis from EGD a month ago. She states she had elevated liver enzymes are for Tylenol cannot be taken also. She does have prescription of Ultram. She will follow-up as an outpatient. All questions were answered. Treatment Plan: [] Disposition: Discharge Impression: 1. Acute lumbar sacral strain 2. Acute on chronic back pain This note was generated with [employer] dictation software. It may contain incorrect words, spelling, and punctuation that were not noted in review of the chart prior to signing ED Disposition - Plan for ED Patient: Disposition: Home or Assisted Living Chief Complaint: Back Diagnosis: Lumbar strain Instructions: ED Sprain Strain Lumbar Referrals: Benson Mckeon DO [Primary Care Provider] - 3-5 Days
[2018-03-10] MEDS: proMETHazine 25 MG/ML Syringe 12.5 MG IM (00:01)
[2018-03-10] MEDS: Morphine 4 MG/ML Syringe SC (00:01)
[2018-03-10 00:31] VITALS: BP 127/84; PULSE 67; RESP 18; O2SAT 97
== END 2018-03-10 00:31 | disposition home or self-care (01) ==
LOC: ED 03-10 00:18
PROVIDERS: Emergency Provider Emergency Medicine; Family Provider Preventive Medicine Occupational Medicine; PCP Preventive Medicine Occupational Medicine
DX: S39.012A Strain of muscle, fascia and tendon of lower back, initial encounter (principal); X58.XXXA Exposure to other specified factors, initial encounter; Y93.9 Activity, unspecified; Y92.9 Unspecified place or not applicable; Y99.9 Unspecified external cause status; R74.8 Abnormal levels of other serum enzymes; M06.9 Rheumatoid arthritis, unspecified; M54.9 Dorsalgia, unspecified; G89.29 Other chronic pain; Z79.899 Other long term (current) drug therapy
CPT/HCPCS: 96372; 99282

== ENCOUNTER 2018-03-14 21:31 | Emergency (ER) | payer OTHER, SELFPAY ==
[2018-03-14 21:31] VITALS: BP 168/91; PULSE 97; RESP 14; TEMP 36.5; O2SAT 95; BMI 28.6
--- NOTE | 2018-03-14 23:32 | ED.VISSUMM ---
- ER Visit Summary Date of Service: 03/14/18 Chief Complaint: Back pain History of Present Illness: The patient is a 57 F who presents with back pain. She has a history of chronic back pain. She is currently undergoing a rheumatology workup including for possible porphyria. She is currently on Enbrel but they are considering starting Remicade. She states her back pain has been worse since yesterday and particularly today. She has had several ER visits in the last couple of months requiring treatment with subcutaneous morphine. She also complains of a developing headache today. No fevers. No vomiting. He has some chronic lower abdominal discomfort related to a mesh repair but no new or abnormal abdominal pain out of her usual. She denies urinary retention or fecal incontinence. No prior back surgeries. Physical Examination: Afebrile vitals are normal Moist mucous members Heart regular rate and rhythm Lungs are clear Abdomen soft nontender nondistended Straight leg raise negative bilaterally Extremities nontender no edema palpable pulses normal strength and sensation with 5 out of 5 dorsiflexion, plantarflexion, extensor hallucis longus Test Results: Not indicated Emergency Department Course and Treatment: Patient presents with acute exacerbation of chronic back pain. She notes that this is similar in character and location to her previous pain. She was recently diagnosed with gastritis had also also had elevated liver enzymes so cannot take Tylenol or ibuprofen. She has been taking tramadol. We will give oxycodone here and a prescription for short course of the same. I stressed the importance of developing a pain management plan with her primary care provider or perl developer or pain management. She understands return for new or worsening symptoms and was discharged home. Treatment Plan: [] Disposition: Discharge Impression: Acute on chronic back pain This note was generated with [employer] dictation software. It may contain incorrect words, spelling, and punctuation that were not noted in review of the chart prior to signing ED Disposition - Plan for ED Patient: Chief Complaint: Back Referrals: Benson Mckeon DO [Primary Care Provider] -
--- NOTE | 2018-03-14 23:34 | ED.DEP ---
ED Disposition - Plan for ED Patient: Chief Complaint: Back Instructions: ED Sciatica, ED Chronic Pain Management Prescriptions: Oxycodone [Oxyir] 5 mg PO Q6H PRN PRN 3 Days #12 tab PRN Reason: Pain Referrals: Benson Mckeon DO [Primary Care Provider] -
[2018-03-14] MEDS: oxyCODONE 5 MG Tablet 10 MG PO (23:43)
[2018-03-14 23:45] VITALS: BP 142/69; PULSE 82; RESP 16
== END 2018-03-14 23:46 | disposition home or self-care (01) ==
LOC: ED 23:31
PROVIDERS: Emergency Provider Emergency Medicine; Family Provider Preventive Medicine Occupational Medicine; PCP Preventive Medicine Occupational Medicine
DX: M54.9 Dorsalgia, unspecified (principal); G89.29 Other chronic pain; R51 Headache; K21.9 Gastro-esophageal reflux disease without esophagitis; Z79.899 Other long term (current) drug therapy
CPT/HCPCS: 99283

== ENCOUNTER → 2018-03-17 11:02 | Outpatient (CLI) | payer OTHER, SELFPAY ==
[2018-03-17 12:21] LABS: Absolute Lymphocyte Count 4.07 X10^3/ul (0.83-4.51); Absolute Neutrophil Count 2.3 X10^3/uL (2.0-7.7); Basophil# 0.01 X10^3/uL; Basophil% 0.1 % (0-1); Eosinophil# 0.18 X10^3/uL; Eosinophils% 2.5 % (0-5); Hematocrit 42.3 % (37-47); Hemoglobin 13.8 g/dl (12.0-15.0); Lymphocyte # 4.07 X10^3/ul (4.0); Lymphocyte % 56.8 % (19-41); Mean Corp Hgb Conc 32.6 g/gl (32-36); Mean Corpuscular Hgb 31.7 pg (27.0-32.0); Mean Platelet Vol. 9.5 fl (6.2-12.0); Monocyte# 0.59 X10^3/uL; Monocyte% 8.2 % (0-10); Neutrophil % 32.3 % (47-70); POSITIVE COUNT NO; POSITIVE DIFFERENTIAL NO; POSITIVE MORPHOLOGY NO; Platelet Count 192 K/mm3 (150-450); RBC Distribution Width CV 13.9 % (11.6-14.6); Red Blood Count 4.36 M/mm3 (4.2-5.4); White Blood Count 7.2 K/mm3 (4.4-11.0)
[2018-03-17 12:26] LABS: ALB/GLOB Ratio 0.8 RATIO (0.9-2.4); AST(SGOT) 182 U/L (15-37); Alanine Aminotransfer ALT/SGPT 170 U/L (13-56); Albumin, Serum 3.9 g/dL (3.2-5.0); Alkaline Phosphatase 160 U/L (45-117); Amylase 68 U/L (25-115); Anion Gap 10 (5-15); BUN 10 mg/dL (7-18); BUN/Creat Ratio 8.4 RATIO (10-20); Calcium,Total 9.4 mg/dL (8.5-10.1); Chloride 102 mmol/L (98-107); Creatinine, Serum 1.19 mg/dL (0.55-1.02); EST Glomerular Filtration Rate 50 mL/min (>60); Est Glom Filt Rate - Afr Amer 60 mL/min (>60); Ferritin 106 ng/mL (8-252); GGTP 185 U/L (5-55); Globulin 4.6 g/dL (2.2-4.2); Glucose 118 mg/dL (74-106); Iron 67 ug/dL (50-170); Iron Binding Capacity,Total 382 ug/dL (250-450); Lipase 230 U/L (73-393); PERCENT IRON SATURATION 17.5 % (15.0-55.0); Potassium 3.8 mmol/L (3.5-5.1); Protein, Total 8.5 g/dL (6.4-8.2); Sodium Level 139 mmol/L (136-145)
[2018-03-17 13:28] LABS: International Normalized Ratio 1.1; Prothrombin Time (Protime)PT. 13.9 SECONDS (11.7-14.9)
[2018-03-17 13:29] LABS: Partial Thromboplast Time 31.7 Seconds (24.1-36.2)
[2018-03-19 18:43] LABS: ANTINUCLEAR ANTIBODIES DIRECT Negative (Negative)
[2018-03-20 11:22] LABS: Alpha Antitrypsin Serum 180 mg/dL (90-200); Anti-Mitochondrial AB <20.0 Units (0.0-20.0)
[2018-03-20 12:07] LABS: Ceruloplasmin 34.5 mg/dL (19.0-39.0); HEPATITIS B SURFACE AG Negative (Negative); Hepatitis B Core Ab Total Negative (Negative); Immunoglobulin A 365 mg/dL (87-352); Immunoglobulin E 49 IU/mL (0-100); Immunoglobulin G 1536 mg/dL (700-1600); Immunoglobulin M 103 mg/dL (26-217); PROEL- Albumin 3.9 g/dL (2.9-4.4); PROEL- Alpha-1 Globulin 0.3 g/dL (0.0-0.4); PROEL- Alpha-2 Globulin 0.7 g/dL (0.4-1.0); PROEL- Beta Globulin 1.6 g/dL (0.7-1.3); PROEL- Gamma Globulin 1.3 g/dL (0.4-1.8); PROEL- Globulin, Total 3.9 g/dL (2.2-3.9); PROEL- TOTAL PROTEIN 7.8 g/dL (6.0-8.5)
[2018-03-21 09:22] LABS: Anti-Smooth Muscle ABS 17 Units (0-19); Hep B Surface Antibodies Non Reactive (.); Hep C Antibodies 0.1 s/co ratio (0.0-0.9); Hepatitis A AB, Total Negative (Negative)
== END ==
PROVIDERS: Family Provider Preventive Medicine Occupational Medicine; PCP Preventive Medicine Occupational Medicine
DX: R74.0 Nonspecific elevation of levels of transaminase and lactic acid dehydrogenase [LDH] (principal)
CPT/HCPCS: 36415; 80053; 82103; 82150; 82390; 82728; 82784; 82785; 82977; 83516; 83540; 83550; 83690; 84165; 85025; 85610; 85730; 86038; 86704; 86706; 86708; 86803; 87340

== ENCOUNTER 2018-05-04 09:29 | Emergency (ER) | payer OTHER, SELFPAY ==
[2018-05-04 09:31] VITALS: BP 168/72; PULSE 89; RESP 16; TEMP 36.2; O2SAT 97; BMI 29.3
[2018-05-04] MEDS: Ketorolac 30 MG/ML Syringe 15 MG IV (10:17)
[2018-05-04] MEDS: Metoclopramide 10 MG/2 ML Vial IV (10:21)
[2018-05-04] MEDS: DiphenhydrAMINE 50 MG/ML Syringe 25 MG IV (10:21)
--- NOTE | 2018-05-04 10:51 | ED.RN ---
PT reports feeling worse with meds, increased anxiety and head feels like in a vise. MD notified and new medication ordered. Pharmacy called for meds. PT aware.
--- NOTE | 2018-05-04 11:19 | ED.RN ---
Computer in room without power. I plugged it in, still not working. Medication given with appropriate checks.
[2018-05-04 11:20] VITALS: BP 126/60; PULSE 82; RESP 16; O2SAT 94
--- NOTE | 2018-05-04 12:50 | ED.DCSUM_ITS ---
- ER Visit Summary Date of Service: 05/04/18 Chief Complaint: Unilateral left-sided headache that is dull and aching and transient vertigo History of Present Illness: The patient is a 58 F who was diagnosed with migraine headaches one year ago. She presents with a left-sided throbbing headache that is been intermittent over the past 1-2 weeks. She also reports blurred vision. She is uncertain whether the blurred vision was monocular or binocular. She does report vertigo which she describes as spinning when she turns to the left. She did report nausea with the vertigo. She denied double vision. She denies trouble with speech or swallowing. She denies cough, shortness of breath or difficulty breathing. She denies chest pain, palpitations or rapid heartbeat. She denies dyspnea, dyspnea on exertion, orthopnea or PND. GI negative other than nausea. negative. She denies myalgias, arthralgias, neck pain or stiffness. She denies generalized weakness, paresthesia, anesthesia or motor weakness. Please read written note for complete detail Physical Examination: Vital signs noted and blood pressure is elevated 168/72. Head is atraumatic normocephalic. Pupils are equal round reactive. Extraocular muscles are intact. Cup-to-disc ratio normal. No papilledema noted. There is slight light sensitivity. TMs are pearly white with landmarks noted. Nares patent with no drainage. Posterior pharynx without erythema or exudate. Uvula is midline. There is no dysphonia or dysphasia. Trachea is midline. There is no stridor with auscultation of the neck. Neck is supple with no meningeal findings. Heart is regular without murmur, gallop or rub. S1 and S2 are normal. Lungs are clear to auscultation with good movement of air bilaterally.. Abdomen soft nontender. Patient is alert and oriented ?3. Motor is 5 over 5. Sensory is intact. DTRs are symmetric with no clonus or Babinski sign. Cranial 2 through 12 are intact. Cerebellar testing is normal. [place]-Hallpike test was negative. The eye askew test was negative. The HINT test was negative. Test Results: None Emergency Department Course and Treatment: She was treated with 30 mg of Toradol, 25 mg of diphenhydramine and 10 mg of Reglan. She had a dystonic reaction to the Reglan and was given 1 mg of Cogentin. Treatment Plan: Patient was reassessed at 1230. Her headache has resolved. She is sitting up smiling. Disposition: Discharged home with Impression: Acute migraine headache without aura Paroxysmal transient positional vertigo by history This note was generated with [employer] dictation software. It may contain incorrect words, spelling, and punctuation that were not noted in review of the chart prior to signing ED Disposition - Plan for ED Patient: Disposition: Home or Assisted Living Chief Complaint: Headache Instructions: ED Headache Migraine, ED BPV Vertigo Referrals: Benson Mckeon DO [Primary Care Provider] - 3-5 Days Additional Instructions: Recommend following up with your primary care physician Dr. Mendiola for prophylactic migraine medication.
[2018-05-04 13:03] VITALS: BP 130/78; PULSE 72; RESP 16; O2SAT 100
== END 2018-05-04 13:04 | disposition home or self-care (01) ==
PROVIDERS: Emergency Provider Emergency Medicine; Family Provider Preventive Medicine Occupational Medicine; PCP Preventive Medicine Occupational Medicine
DX: G43.909 Migraine, unspecified, not intractable, without status migrainosus (principal); R42 Dizziness and giddiness; R03.0 Elevated blood-pressure reading, without diagnosis of hypertension; G24.09 Other drug induced dystonia; T45.0X5A Adverse effect of antiallergic and antiemetic drugs, initial encounter; Y92.239 Unspecified place in hospital as the place of occurrence of the external cause; Z79.899 Other long term (current) drug therapy
CPT/HCPCS: 96374; 96375; 99283; A4216

== ENCOUNTER 2018-06-25 13:11 | Emergency (ER) | payer SELFPAY ==
[2018-06-25 13:11] VITALS: BMI 27.4
[2018-06-25 13:12] VITALS: BP 142/70; PULSE 94; RESP 14; TEMP 37.9; O2SAT 99; BMI 27.4
[2018-06-25 13:16] VITALS: PULSE 80; RESP 16; TEMP 37.9; O2SAT 99
--- NOTE | 2018-06-25 13:40 | RAD_ITS ---
STUDY: X-RAY CHEST REASON FOR EXAM: Female, 58 years old. Back pain and fever. TECHNIQUE: Single AP portable view of the chest. COMPARISON: Comparison is made with prior study dated June 06, 2017. FINDINGS: The lungs are clear and expanded. Scattered calcified granulomas. There is no demonstrated pleural abnormality. Normal size heart. Normal mediastinum and alexandru. Normal visualized pulmonary arteries. Normal visualized aortic arch and descending thoracic aorta. Normal visualized thoracic spine. Normal visualized ribs, clavicles, and shoulders. There is no demonstrated abnormality of the visualized soft tissue structures of the upper abdomen. RAD/Chest 1 View (Portable) IMPRESSION: Normal x-ray examination of the chest. Electronically Signed: Kenny Stanton MD at 14:00 EST Tel [phone], Service support ,
[2018-06-25] MEDS: Morphine 4 MG/ML Syringe IM (13:49)
--- NOTE | 2018-06-25 14:52 | ED.DCSUM_ITS ---
- ER Visit Summary Date of Service: 06/25/18 Chief Complaint: [congestion, cough, chronic left leg pain] History of Present Illness: The patient is a 58 F [patient presents with multiple complaints. She has had cough and congestion for the last 2-3 days. She denies any sputum production. No dyspnea or chest pain. She describes chronic left leg pain and sciatica. She denies any fall or trauma. No bowel or bladder incontinence or retention. No symptoms of saddle anesthesia. She appears overall well and nontoxic. No recent travel or exposures. She describes migraine headache earlier but this has resolved. She has no other complaints.] Physical Examination: [General: The patient appears well and in no apparent distress. Patient is resting comfortably on cart. Skin: Warm, dry, no pallor noted. No rash. Head: Normocephalic, atraumatic Neck: Supple, nontender. Eye: PERRLA, EOMI ENT: Moist mucus membranes, pharynx within normal limits. Cardiovascular: Regular Rate and Rhythm, no gallops or rubs Respiratory: Patient is in no distress, no accessory muscle use, lungs are clear to auscultation, no wheezing, rales or rhonchi Musculoskeletal: normal ROM, no deformity, no tenderness, no swelling. 2+ radial and DP pulses symmetric. No pain with log roll of the hips. No erythema, warmth, or evidence of joint infection. Back: Left paraspinal lumbar tenderness. No spinal tenderness. GI: No tenderness to palpation, no masses appreciated. No rebound, guarding, or rigidity noted. Neurological: A&O, normal strength and sensation. 5/5 bilateral lower extremity strength intact. Sensation normal. Psychiatric: Cooperative] Test Results: [] Emergency Department Course and Treatment: [Chest x-ray shows no acute process. Patient was given injection of analgesic here with improvement of her chronic pain symptoms. I will write her a short prescription for tramadol and she was advised she needs to follow closely with primary provider and return with any new or worsening symptoms. I do not feel she requires antibiotics. If her influenza test is positive I will treat her with Tamiflu. She understands to return with any new or worsening symptoms. Patient and family understand and are agreeable with this plan of care. Patient was discharged home in stable and improved condition.] Treatment Plan: [see above] Disposition: [discharge home] Impression: [URI, Chronic Back Pain, Sciatica] This note was generated with [employer] dictation software. It may contain incorrect words, spelling, and punctuation that were not noted in review of the chart prior to signing ED Disposition - Plan for ED Patient: Disposition: Home or Assisted Living Chief Complaint: Fever Instructions: ED Upper Resp Infec No Abx Tx Prescriptions: traMADol [Ultram] 50 mg PO Q6H PRN PRN #12 tab PRN Reason: Pain Referrals: Benson Mckeon DO [Primary Care Provider] -
[2018-06-25 15:05] VITALS: BP 113/76; PULSE 74; RESP 16; TEMP 36.3; O2SAT 95
[2018-06-25] MEDS: proMETHazine 25 MG Tablet PO (16:02)
--- NOTE | 2018-06-25 16:06 | NURSING ---
PT refusing script for tramadol because per pt, she already has some at home. prescription put in shredder at nurse's station
== END 2018-06-25 16:09 | disposition home or self-care (01) ==
PROVIDERS: Emergency Provider Emergency Medicine; Family Provider Preventive Medicine Occupational Medicine; PCP Preventive Medicine Occupational Medicine
DX: J06.9 Acute upper respiratory infection, unspecified (principal); M54.42 Lumbago with sciatica, left side; G89.29 Other chronic pain; E66.9 Obesity, unspecified; Z79.899 Other long term (current) drug therapy
CPT/HCPCS: 71045; 87804; 96372; 99283

== ENCOUNTER → 2018-07-28 08:42 | Outpatient (CLI) | payer OTHER, SELFPAY ==
--- NOTE | 2018-07-28 08:55 | MRI_ITS ---
STUDY: MRI LUMBAR SPINE WITHOUT CONTRAST REASON FOR EXAM: Female, 58 years old. LT RADICULAR PAIN WITH WEAKNESS -- pain left hip and leg x 3 months, rheumatoid arthritis w/o rheumatoid factor, multiple sites. TECHNIQUE: Standardized fat and water weighted pulse sequences were obtained in the sagittal and axial planes. COMPARISON: None FINDINGS: T12-L1: Normal endplates. Normal disc height, hydration and morphology. Normal bilateral facet joints. Normal central canal and bilateral lateral recesses. Normal bilateral intervertebral neural foramina. Normal lumbar lordosis. There is no substantial scoliosis. Normal conus medullaris that terminates at the L1 L1-2: There is minimal disc space narrowing and endplate spondylosis. There is minimal disc bulge without significant central canal or foraminal stenosis. L2-3: There is minimal disc space narrowing and endplate spondylosis. There is mild disc bulge without significant central canal or foraminal stenosis. L3-4: There is mild disc space narrowing and endplates spondylosis. There is a mild disc bulge and moderate facet arthropathy without significant central canal stenosis. There is minimal right foraminal stenosis. There is no significant left foraminal stenosis. L4-5: There is minimal disc space narrowing and endplates spondylosis. There is a mild disc bulge and moderate facet arthropathy without significant central canal stenosis. There is mild bilateral foraminal stenosis. L5-S1: There is minimal disc space narrowing and endplate spondylosis. There is minimal disc bulge without significant central canal or foraminal stenosis. There is moderate facet arthropathy Normal visualized sacral ala. Normal visualized paraspinous soft tissue structures. MRI/Spine Lumbar (Routine) IMPRESSION: Mild bilateral foraminal stenosis. Moderate facet arthropathy. Electronically Signed: Aroldo Hale MD at 11:12 EST Tel , Service support ,
== END ==
LOC: MRI 08:43
PROVIDERS: Family Provider Preventive Medicine Occupational Medicine; PCP Preventive Medicine Occupational Medicine
DX: M06.09 Rheumatoid arthritis without rheumatoid factor, multiple sites (principal); M48.061 Spinal stenosis, lumbar region without neurogenic claudication
CPT/HCPCS: 72148

== ENCOUNTER 2018-09-17 00:45 | Emergency (ER) | payer OTHER, SELFPAY ==
[2018-09-17 00:45] VITALS: BP 112/77; PULSE 96; RESP 15; TEMP 37.2; O2SAT 99; BMI 26.2
[2018-09-17 01:17] VITALS: PULSE 91; RESP 18; O2SAT 97
--- NOTE | 2018-09-17 01:19 | EKG12_ITS ---
Test Reason : SOB Blood Pressure : / mmHG Vent. Rate : 092 BPM Atrial Rate : 092 BPM P-R Int : 148 ms QRS Dur : 072 ms QT Int : 344 ms P-R-T Axes : 028 014 052 degrees QTc Int : 425 ms Normal sinus rhythm Nonspecific ST/T Wave Abnormality Confirmed by ANTONIA MEJÍA, DAVID ([id number]), publication editor JOELLEN HERNANDEZ ([id number]) on 09/19/2018 1:44:28 PM Referred By: CHAD Confirmed By:DAVID KNIGHT MD
--- NOTE | 2018-09-17 01:20 | ED.VIS.GEN ---
History of Present Illness Chief Complaint: Shortness of Breath Narrative: Patient presents to the ER with waking up approximately an hour and a half ago with R-sided chest discomfort. Is under her breast region. She also feels it in her right scapular region. No home treatment. She states it is worse when she takes a deep breath. She did have similar pain 6 months ago when she stated she had a pneumonia. She is concerned it could have came back. She does have a mild cough for the last 2 days as well as runny nose and she does have sick contacts. No fevers or chills. Current severity is mild to moderate. Denies any cardiac risk factors or PE risk factors for dissection risk factors. Past Medical History - Allergies and Home Meds Allergies/Adverse Reactions: Allergies adhesive tape Allergy (Verified 09/17/18 00:50) Rash alprazolam [From Xanax] Allergy (Verified 09/17/18 00:50) Unknown cyclobenzaprine HCl [From Flexeril] Allergy (Verified 09/17/18 00:50) Unknown diphenhydramine HCl [From Benadryl] Allergy (Verified 09/17/18 00:50) Unknown ibuprofen Allergy (Verified 09/17/18 00:50) Nausea Iodinated Contrast- Oral and IV Dye [DYEE] Allergy (Verified 09/17/18 00:50) Other panic attack prochlorperazine edisylate [From Compazine] Allergy (Verified 09/17/18 00:50) Unknown prochlorperazine maleate [From Compazine] Allergy (Verified 09/17/18 00:50) Unknown red dye Allergy (Verified 09/17/18 00:50) Nausea acetaminophen [From Tylenol] Adverse Reaction (Verified 09/17/18 00:50) Other ondansetron [From Zofran (as hydrochloride)] Adverse Reaction (Verified 09/17/18 00:50) Nausea/Vom/Diarrhea Primary Care Physician: Benson Mckeon DO [Primary Care Provider] - Prior records reviewed: Yes Past Medical History: - - Autoimmune disorder NOS Surgical History: - - Viewed Lives: With Family Smoking Status: Never smoker Alcohol: None Drugs: None Review of Systems General: Denies: Chills, Fever, Sweats Eyes: Denies: Visual changes - bilaterally, Diplopia ENT: Denies: Rhinorrhea, Sore throat Cardiovascular: Reports: Chest pain. Denies: Palpitations Respiratory: Reports: Cough. Denies: Dyspnea, Dyspnea on exertion Gastrointestinal: Denies: Abdominal pain, Nausea, Vomiting, Diarrhea, Melena, Hematochezia Genitourinary: Denies: Dysuria, Hematuria, Frequency Musculoskeletal: Denies: Back pain, Extremity Pain Skin: Denies: Rash, Wounds Neurological: Denies: Headache, Weakness, Numbness Physical Exam Vital Signs/Narrative: Vital Signs Temp Pulse Resp BP Pulse Ox 09/17/18 01:17 91 18 97 09/17/18 00:45 99.0 F 96 15 112/77 99 General: Well nourished, Well developed, No Acute Distress Head: Normocephalic, Atraumatic Eyes: Perrl, EOMI ENT: Moist mucous membranes, No rhinorrhea Neck: Supple, Nontender Cardiovascular: Regular rate, Regular rhythm, No murmurs Respiratory: No distress, CTA bilaterally, Chest nontender Abdomen: Soft, Nontender, Nondistended, Normal bowel sounds Back: Nontender, Normal Inspection Extremities: Nontender, No edema Skin: Normal color, No rash Neurological: Alert, Oriented x3, Cranial nerves II-XII grossly intact, Normal Strength, Normal Sensation Psychological: Normal affect, Normal Mood Diagnostic/Tx/Re-eval 09/17/18 02:14 Chest PA and Lateral [RAD] Stat Laboratory Results 09/17/18 09/17/18 01:56 01:56 WBC 7.2 RBC 3.42 L Hgb 10.8 L Hct 34.0 L MCV 99.4 H MCH 31.6 MCHC 31.8 L RDW 14.0 RDW Differential 49.6 H Plt Count 82 L MPV 10.8 Immature Gran % (Auto) 0.300 Neut % (Auto) 53.1 Lymph % (Auto) 33.5 Tyler % (Auto) 10.3 H Eos % (Auto) 2.5 Baso % (Auto) 0.3 Absolute Neuts (auto) 3.8 Absolute Lymphs (auto) 2.41 Total Counted Not Reportable Sodium 136 Potassium 3.6 Chloride 109 H Carbon Dioxide 23.0 Anion Gap 4 L BUN 9 Creatinine 1.05 H Estim Creat Clear Calc 46.19 Est GFR (MDRD) Af Amer 69 Est GFR (MDRD) Non-Af 57 L BUN/Creatinine Ratio 8.6 L Glucose 127 H Calcium 8.3 L Troponin I < 0.015 - EKG Initial EKG Interpretation: Sinus Rhythm - Rate of 92. T wave inversion V2 only. No other acute ischemic findings. - Medical Decision Making Patient [place]. [place] [id number]. This is new for her. This could be related to her Lyrica having increasing over the last month. Also could be related to her Enbrel nonetheless I do not think is related to her symptoms. I do not think she is got a PE dissection or acute coronary syndrome. She is resting comfortably after dose of morphine. Troponin negative. Chest x-ray shows nothing acute. She is rotated. No pneumonia or infiltrates. At this time I will comfortable allowing the patient to go home. She is low risk from an acute coronary stand point. Her heart score is low. Her PERC score is negative. I feel she can be discharged. 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
[2018-09-17] MEDS: Morphine 4 MG/ML Syringe IV (02:07)
--- NOTE | 2018-09-17 02:14 | RAD_ITS ---
HISTORY: SOB EXAM: XR Chest 2 Views: COMPARISON: 06/25/18 CXR FINDINGS: LINES/DEVICES: None. LUNGS: Radiographically clear. No consolidation, edema or effusion. No pneumothorax. MEDIASTINUM AND CARDIOVASCULAR STRUCTURES: Cardiac silhouette not enlarged. Central airways and mediastinal contour are unremarkable. BONES AND SOFT TISSUES: Unremarkable. RAD/Chest PA and Lateral IMPRESSION: No radiographic evidence of acute cardiopulmonary disease. at 0302 Reported and signed by: Neftaly Lee MD Electronically Signed: Neftaly Lee, at 3:01 EDT Tel , Service support ,
[2018-09-17 02:16] LABS: Absolute Lymphocyte Count 2.41 X10^3/ul (0.83-4.51); Absolute Neutrophil Count 3.8 X10^3/uL (2.0-7.7); Basophil# 0.02 X10^3/uL; Basophil% 0.3 % (0-1); Eosinophil# 0.18 X10^3/uL; Eosinophils% 2.5 % (0-5); Hemoglobin 10.8 g/dl (12.0-15.0); Lymphocyte # 2.41 X10^3/ul (4.0); Lymphocyte % 33.5 % (19-41); Mean Corp Hgb Conc 31.8 g/gl (32-36); Mean Corpuscular Hgb 31.6 pg (27.0-32.0); Mean Corpuscular Volume 99.4 fL (81-99); Mean Platelet Vol. 10.8 fl (6.2-12.0); Monocyte# 0.74 X10^3/uL; Monocyte% 10.3 % (0-10); Neutrophil # 3.82 X10^3/uL (2.7-7.7); Neutrophil % 53.1 % (47-70); Platelet Count 82 K/mm3 (150-450); RBC Distribution Width SD 49.6 fl (35.1-43.9); Red Blood Count 3.42 M/mm3 (4.2-5.4); White Blood Count 7.2 K/mm3 (4.4-11.0)
[2018-09-17 02:17] LABS: POSITIVE COUNT NO; POSITIVE DIFFERENTIAL NO; POSITIVE MORPHOLOGY NO
[2018-09-17 02:29] LABS: Anion Gap 4 (5-15); BUN 9 mg/dL (7-18); BUN/Creat Ratio 8.6 RATIO (10-20); Calcium,Total 8.3 mg/dL (8.5-10.1); Chloride 109 mmol/L (98-107); Creatinine, Serum 1.05 mg/dL (0.55-1.02); EST Glomerular Filtration Rate 57 mL/min (>60); Est Glom Filt Rate - Afr Amer 69 mL/min (>60); Estimated Creatinine Clearance 46.19 ml/min; Glucose 127 mg/dL (74-106); Potassium 3.6 mmol/L (3.5-5.1); Sodium Level 136 mmol/L (136-145)
[2018-09-17 03:01] VITALS: PULSE 96; RESP 15; O2SAT 97
== END 2018-09-17 03:03 | disposition home or self-care (01) ==
PROVIDERS: Emergency Provider Emergency Medicine; Family Provider Preventive Medicine Occupational Medicine; PCP Preventive Medicine Occupational Medicine
DX: R07.9 Chest pain, unspecified (principal); D69.6 Thrombocytopenia, unspecified; Z79.899 Other long term (current) drug therapy; Z87.01 Personal history of pneumonia (recurrent)
CPT/HCPCS: 71046; 80048; 84484; 85025; 93005; 96374; 99283

== ENCOUNTER 2018-12-21 10:50 | Emergency (ER) | payer OTHER, SELFPAY ==
[2018-12-21 10:51] VITALS: BP 136/70; PULSE 82; RESP 17; TEMP 36.4; O2SAT 96; BMI 28.1
--- NOTE | 2018-12-21 11:07 | ED.VISSUMM ---
- ER Visit Summary Date of Service: 12/21/18 Chief Complaint: Headache History of Present Illness: The patient is a 58 F presents to the emergency department with headache. Patient does have a significant medical history. She states when she gets flareups of her arthritis, she will get migraine. She states she has not had one for about 4 to 5 months. Over the past 24 hours, she describes her normal migraine headache. She states that she is also been mildly vertiginous. She does not know what has helped her with her headaches before. She denies any fevers or chills. Has been mildly nauseated without vomiting. She denies any weakness. She states she has not been under significant amount of stress lately. Physical Examination: Well-appearing patient is in no acute distress. Head is normocephalic, atraumatic. Pupils equal round reactive, extraocular muscles intact. There is no temporal artery tenderness. There is no vesicular rash. Neck supple. Kernig's and Brudzinski's are negative. Heart regular rate and rhythm. Lungs clear, chest nontender. Abdomen soft, nontender, nondistended. Neuro exam displays no focal or lateralizing deficit. 2+ symmetric lower extremity reflexes. No clonus. No ataxia or gait abnormality. Test Results: [] Emergency Department Course and Treatment: Patient presents with multiple complaints. Her major complaint is her migraine. Her neuro exam is reassuring. She is not meningitic. She is not encephalopathic. IV was established. I did obtain screening labs given her history. These were unremarkable. She has mild elevation of her LFTs, but they have been improving. The patient was treated with fluids, Toradol, Phenergan. She was complaining of a dystonic reaction but has been on Phenergan before. She describes an allergy to Benadryl which makes her tachycardic. She was given Vistaril. She was also complaining of pain in bilateral lower extremities which is chronic. She was given morphine with improvement. On reevaluation, she is resting comfortably. I do not suspect a dangerous process. I do feel patient safe for outpatient therapy. Treatment Plan: [] Disposition: Discharge Impression: 1. Migraine headache This note was generated with [employer] software. It may contain incorrect words, spelling, and punctuation that were not noted in review of the chart prior to signing ED Disposition - Plan for ED Patient: Instructions: HEADACHE, Migraine (Classical) Referrals: Benson Mckeon DO [Primary Care Provider] -
[2018-12-21] MEDS: 0.9% Normal Saline 1,000 ML 1000 ML IV (11:11)
[2018-12-21] MEDS: proMETHazine 25 MG/ML Syringe 6.25 MG IV (11:11)
[2018-12-21] MEDS: Ketorolac 15 MG/ML Vial IV (11:11)
[2018-12-21 11:18] LABS: Absolute Lymphocyte Count 3.22 X10^3/ul (0.83-4.51); Absolute Neutrophil Count 1.7 X10^3/uL (2.0-7.7); Basophil# 0.02 X10^3/uL; Basophil% 0.3 % (0-1); Eosinophil# 0.17 X10^3/uL; Hematocrit 34.1 % (37-47); Hemoglobin 11.2 g/dl (12.0-15.0); Lymphocyte # 3.22 X10^3/ul (4.0); Lymphocyte % 56.2 % (19-41); Mean Corp Hgb Conc 32.8 g/gl (32-36); Mean Corpuscular Hgb 30.1 pg (27.0-32.0); Mean Corpuscular Volume 91.7 fL (81-99); Mean Platelet Vol. 8.8 fl (6.2-12.0); Monocyte# 0.57 X10^3/uL; Monocyte% 9.9 % (0-10); Neutrophil # 1.74 X10^3/uL (2.7-7.7); Neutrophil % 30.4 % (47-70); POSITIVE COUNT NO; POSITIVE DIFFERENTIAL NO; POSITIVE MORPHOLOGY NO; Platelet Count 126 K/mm3 (150-450); RBC Distribution Width CV 14.4 % (11.6-14.6); RBC Distribution Width SD 46.8 fl (35.1-43.9); Red Blood Count 3.72 M/mm3 (4.2-5.4); White Blood Count 5.7 K/mm3 (4.4-11.0)
[2018-12-21 11:31] LABS: ALB/GLOB Ratio 0.7 RATIO (0.9-2.4); AST(SGOT) 94 U/L (15-37); Alanine Aminotransfer ALT/SGPT 65 U/L (13-56); Albumin, Serum 3.3 g/dL (3.2-5.0); Alkaline Phosphatase 150 U/L (45-117); Anion Gap 7 (5-15); BUN 9 mg/dL (7-18); Calcium,Total 8.9 mg/dL (8.5-10.1); Chloride 109 mmol/L (98-107); Creatinine, Serum 0.82 mg/dL (0.55-1.02); EST Glomerular Filtration Rate 76 mL/min (>60); Est Glom Filt Rate - Afr Amer 92 mL/min (>60); Estimated Creatinine Clearance 59.15 ml/min; Globulin 4.7 g/dL (2.2-4.2); Glucose 127 mg/dL (74-106); Potassium 3.7 mmol/L (3.5-5.1); Sodium Level 141 mmol/L (136-145)
[2018-12-21] MEDS: hydrOXYzine PAM 25 MG Capsule 50 MG PO (11:31)
[2018-12-21 11:33] VITALS: BP 129/72; PULSE 85; RESP 18; O2SAT 95
[2018-12-21] MEDS: Morphine 4 MG/ML Syringe IV (12:06)
[2018-12-21 12:16] VITALS: BP 132/70; O2SAT 92
== END 2018-12-21 12:43 | disposition home or self-care (01) ==
LOC: ED 11:08
PROVIDERS: Emergency Provider Emergency Medicine; Family Provider Preventive Medicine Occupational Medicine; PCP Preventive Medicine Occupational Medicine
DX: G43.909 Migraine, unspecified, not intractable, without status migrainosus (principal); R79.89 Other specified abnormal findings of blood chemistry; M19.90 Unspecified osteoarthritis, unspecified site; M79.605 Pain in left leg; M79.604 Pain in right leg; K21.9 Gastro-esophageal reflux disease without esophagitis; Z79.899 Other long term (current) drug therapy
CPT/HCPCS: 80053; 85025; 96361; 96374; 96375; 99285; J7030; A4216

== ENCOUNTER 2019-06-19 20:47 | Emergency (ER) | payer BC, SELFPAY ==
[2019-06-19 20:50] VITALS: BP 136/69; PULSE 100; PULSE 98; RESP 16; RESP 17; TEMP 36.9; O2SAT 94; BMI 28.2
--- NOTE | 2019-06-19 21:11 | ED.DCSUM_ITS ---
History of Present Illness Chief Complaint: General Illness Detail of Chief Complaint: arthitis Informant: Patient, Significant Other Onset: Hours - 1.5 Context: Sudden Onset - relatively Timing: Continuous Quality: inflammation, aching Location: arms, legs - mostly in joints Current Severity: Severe Maximum Severity: Severe Worsened by: moving Relieved by: nothing -- tried Enbrel, percocet Associated Symptoms: dry mouth Narrative: Patient states she developed inflammation all over about an hour and a half ago. She says the pain is severe and disabling. She arrives by EMS. She has a history of this, she states that they do not know what it is, so they just labeled with RA. She states it is commonly triggered by certain foods. She states she ate stuffing and ham earlier and she is suspicious 1 of those is causing this. She has been dealing with this problem for a long time, and in order to deal with the pain, she occasionally takes Percocet, she is on Lyrica., And she takes Enbrel injections weekly. That has done well to help keep her pains under control. After this started, she took a Percocet and she took an Enbrel injection a couple days early, because sometimes it helps to abort the pa inful episode quite quickly. This time it has done nothing. She states she was started on a water pill/diuretic several days ago because of abdominal bloating although she has no edema in her legs. She states her mouth feels dry and she feels like she cannot drink enough water. She is asking for IV fluids regardless if she is dehydrated or not because it will help her feel better. Significant other states she was having chest pain off and on for the past week but in the past 3 days she has had none. She denies any shortness of breath or cough or fever. She sneezes on occasion. - Past Medical History (1) Rheumatoid arthritis Status: Chronic Past Medical History - Allergies and Home Meds Allergies/Adverse Reactions: Allergies adhesive tape Allergy (Verified 06/19/19 20:48) Rash alprazolam [From Xanax] Allergy (Verified 06/19/19 20:48) Unknown cyclobenzaprine HCl [From Flexeril] Allergy (Verified 06/19/19 20:48) Unknown diphenhydramine HCl [From Benadryl] Allergy (Verified 06/19/19 20:48) Unknown ibuprofen Allergy (Verified 06/19/19 20:48) Nausea Iodinated Contrast Media [DYEE] Allergy (Verified 06/19/19 20:48) Other panic attack prochlorperazine edisylate [From Compazine] Allergy (Verified 06/19/19 20:48) Unknown prochlorperazine maleate [From Compazine] Allergy (Verified 06/19/19 20:48) Unknown red dye Allergy (Verified 06/19/19 20:48) Nausea acetaminophen [From Tylenol] Adverse Reaction (Verified 06/19/19 20:48) Other ondansetron [From Zofran (as hydrochloride)] Adverse Reaction (Verified 06/19/19 20:48) Nausea/Vom/Diarrhea Primary Care Physician: Benson Mckeon DO [Primary Care Provider] - Lives: Spouse/ Significant Other Smoking Status: Never smoker Drugs: None Review of Systems General: Reports: Malaise. Denies: Chills, Fever, Sweats Eyes: Denies: Visual changes - bilaterally, Diplopia ENT: Denies: Bilateral ear pain, Rhinorrhea, Sore throat Cardiovascular: Denies: Chest pain, Palpitations Respiratory: Denies: Dyspnea, Cough, Dyspnea on exertion Gastrointestinal: Denies: Abdominal pain, Nausea, Vomiting, Diarrhea, Melena, Hematochezia Genitourinary: Denies: Dysuria, Hematuria, Frequency Musculoskeletal: Reports: Arthralgias, Extremity Pain. Denies: Neck pain, Back pain, Swelling Skin: Reports: - - redness in hands, which commonly occurs during arthritis flare. Denies: Rash, Wounds Neurological: Denies: Headache, Weakness, Numbness Physical Exam Vital Signs/Narrative: Vital Signs Temp Pulse Resp BP Pulse Ox 06/19/19 20:50 98.4 F 98 16 136/69 H 94 Inital Vital Signs reviewed: Yes General: Well nourished, Well developed, No Acute Distress Head: Normocephalic, Atraumatic Eyes: Perrl, EOMI ENT: Moist mucous membranes, No rhinorrhea Neck: Supple, Nontender, No lymphadenopathy Cardiovascular: Regular rate, Regular rhythm, No murmurs Respiratory: No distress, CTA bilaterally, Chest nontender Abdomen: Soft, Nontender, Nondistended, Normal bowel sounds Back: Nontender, Normal Inspection. Negative for: CVA tenderness Extremities: No edema, - - Able to move all 4 extremities. Slow, limited range of motion at large extremity joints. No swollen erythematous joints. Only mild erythema on her thenar and hyperthenar eminences on her palms. Skin: Normal color, No rash Neurological: Alert, Oriented x3, Cranial nerves II-XII grossly intact, Normal Strength, Normal Sensation Psychological: Normal Mood, Tearful - and anxious about her sx Diagnostic/Tx/Re-eval Laboratory Results 06/19/19 21:20 Sodium 139 Potassium 4.0 Chloride 105 Carbon Dioxide 26.0 Anion Gap 8 BUN 9 Creatinine 1.10 H Estim Creat Clear Calc 43.55 Est GFR (MDRD) Af Amer 65 Est GFR (MDRD) Non-Af 54 L BUN/Creatinine Ratio 8.2 L Glucose 247 H Calcium 9.0 - Medical Decision Making Patient was treated with a dose of morphine, IV fluids, as well as prophylactic Phenergan that she requested. She wanted the fluids to feel better with regards to feeling like her mouth is dry and with regards to being on a diuretic recently. She is only been on that for several days she states. Her electrolytes are fine aside from mild hyperglycemia. She is feeling better with regards to pain and is still a little nauseated. She has Zofran on her long list of allergies/sensitivities, but her reaction is nausea/vomiting/diarrhea. Certainly she does not apparently have an allergy to Zofran, which she will be offered anyway, and then discharged with her family member. ED Disposition - Plan for ED Patient: Disposition: Home or Assisted Living Diagnosis: Rheumatoid arthritis flare Instructions: Rheumatoid Arthritis Referrals: Benson Mckeon DO [Primary Care Provider] - 1-2 Days if not improving
[2019-06-19] MEDS: Morphine 4 MG/ML Syringe IV (21:26)
[2019-06-19] MEDS: proMETHazine 25 MG/ML Syringe 12.5 MG IV (21:26)
[2019-06-19 21:27] VITALS: BP 112/55; PULSE 92; RESP 18; O2SAT 94
[2019-06-19 21:39] LABS: Anion Gap 8 (5-15); BUN 9 mg/dL (7-18); BUN/Creat Ratio 8.2 RATIO (10-20); Chloride 105 mmol/L (98-107); EST Glomerular Filtration Rate 54 mL/min (>60); Est Glom Filt Rate - Afr Amer 65 mL/min (>60); Estimated Creatinine Clearance 43.55 ml/min; Glucose 247 mg/dL (74-106); Sodium Level 139 mmol/L (136-145)
[2019-06-19 22:41] VITALS: BP 112/78; PULSE 71; RESP 16; O2SAT 98
== END 2019-06-19 23:10 | disposition home or self-care (01) ==
PROVIDERS: Emergency Provider Emergency Medicine; Family Provider Preventive Medicine Occupational Medicine; PCP Preventive Medicine Occupational Medicine
DX: M06.9 Rheumatoid arthritis, unspecified (principal)
CPT/HCPCS: 80048; 96361; 96374; 96375; 99285; J7040; A4216

== ENCOUNTER 2019-09-16 07:27 | Emergency (ER) | payer BC, SELFPAY ==
[2019-09-16 07:27] VITALS: BP 141/75; PULSE 86; RESP 19; TEMP 36.9; O2SAT 95; BMI 26.5
--- NOTE | 2019-09-16 07:51 | ED.VIS.GEN ---
History of Present Illness Chief Complaint: Cough Informant: Patient Onset: Days - 9 Narrative: 9-day history congestion cough with phlegm with intermittent fevers. Reports last couple days wheezing at night. No asthma or COPD history. Sick contacts with grandchildren 1 with positive flu. Patient cannot take flu vaccination due to being on Enbrel for generalized rheumatological inflammatory disease unknown diagnosis at this time. States she has pains all over her joints due to her history. No vomiting or diarrhea. States stools are softer. No urinary symptoms. Mild chest discomfort with cough. No tobacco history. Reports unable to sleep due to cough. Prior similar symptoms: Yes Past Medical History - Allergies and Home Meds Allergies/Adverse Reactions: Allergies adhesive tape Allergy (Verified 09/16/19 07:27) Rash alprazolam [From Xanax] Allergy (Verified 09/16/19 07:27) Unknown cyclobenzaprine HCl [From Flexeril] Allergy (Verified 09/16/19 07:27) Unknown diphenhydramine HCl [From Benadryl] Allergy (Verified 09/16/19 07:27) Unknown ibuprofen Allergy (Verified 09/16/19 07:27) Nausea Iodinated Contrast Media [DYEE] Allergy (Verified 09/16/19 07:27) Other panic attack prochlorperazine edisylate [From Compazine] Allergy (Verified 09/16/19 07:27) Unknown prochlorperazine maleate [From Compazine] Allergy (Verified 09/16/19 07:27) Unknown red dye Allergy (Verified 09/16/19 07:27) Nausea acetaminophen [From Tylenol] Adverse Reaction (Verified 09/16/19 07:27) Other ondansetron [From Zofran (as hydrochloride)] Adverse Reaction (Verified 09/16/19 07:27) Nausea/Vom/Diarrhea Primary Care Physician: Benson Mckeon DO [Primary Care Provider] - Past Medical History: - - Rheumatological disease with unknown etiology on immunosuppressants, migraines, anxiety Smoking Status: Never smoker Review of Systems General: Reports: Fever. Denies: Chills, Sweats Eyes: Denies: Visual changes - bilaterally, Diplopia ENT: Denies: Rhinorrhea, Sore throat Cardiovascular: Denies: Chest pain, Palpitations Respiratory: Reports: Dyspnea, Cough. Denies: Dyspnea on exertion Gastrointestinal: Denies: Abdominal pain, Nausea, Vomiting, Diarrhea, Melena, Hematochezia Genitourinary: Denies: Dysuria, Hematuria, Frequency Musculoskeletal: Denies: Back pain, Extremity Pain Skin: Denies: Rash, Wounds Neurological: Denies: Headache, Weakness, Numbness Physical Exam Vital Signs/Narrative: Vital Signs Temp Pulse Resp BP Pulse Ox 09/16/19 07:27 98.4 F 86 19 H 141/75 H 95 Inital Vital Signs reviewed: Yes General: Well nourished, Well developed, No Acute Distress Head: Normocephalic, Atraumatic Eyes: Perrl, EOMI ENT: - - Patient maintained with facemask Neck: Supple, Nontender Cardiovascular: Regular rate, Regular rhythm, No murmurs Respiratory: No distress, - - Mild expiratory wheezing upper lobes Abdomen: Soft, Nontender, Nondistended, Normal bowel sounds Back: Nontender, Normal Inspection Extremities: Nontender, No edema Skin: Normal color, No rash Neurological: Alert, Oriented x3, Cranial nerves II-XII grossly intact, Normal Strength, Normal Sensation Psychological: Normal affect, Normal Mood Diagnostic/Tx/Re-eval Clinical Impression(s) from Imaging Studies Chest X-Ray 09/16/19 07:55 IMPRESSION: Normal x-ray examination of the chest and slightly better inspiratory effort is the only new finding when compared to 09/17/2018. Electronically Signed: Shaun Reese MD at 8:20 EDT , Service support , - Medical Decision Making Patient nontoxic vital signs stable. Full PPE year due to pandemic of Covid with symptoms. Influenza, RSV negative. Secondary to limited resources, no Covid swab. Patient's chest x-ray is negative. MDI inhaler provided for wheeze. Patient is 9 days into symptoms, less likely for any decompensation. I did discuss signs and symptoms with patient is to return. She reported headache with no focal deficits treated with Tylenol. She will continue this inhaler as needed. She will follow-up as an outpatient. All questions were answered. ED Disposition - Plan for ED Patient: Disposition: Home or Assisted Living Diagnosis: Viral syndrome Instructions: VIRAL SYNDROME (Adult) Prescriptions: Benzonatate [Tessalon Perle] 200 mg PO TID PRN PRN #20 cap PRN Reason: Cough Transmission Status: Pending to [place] [id number] [address] [facility] Referrals: Benson Mckeon DO [Primary Care Provider] - 5-7 Days
--- NOTE | 2019-09-16 07:55 | RAD_ITS ---
STUDY: X-RAY CHEST REASON FOR EXAM: Female, 59 years old. COUGH, SOB, FEVER TECHNIQUE: AP upright portable view. COMPARISON: 09/17/2018. FINDINGS: Mild pulmonary hypoinflation. The lungs are clear. There is no demonstrated pleural abnormality. Normal size heart. Normal mediastinum and alexandru. Normal visualized pulmonary arteries. Normal visualized aortic arch and descending thoracic aorta. Normal visualized thoracic spine. Normal visualized ribs, clavicles, and shoulders. There is no demonstrated abnormality of the visualized soft tissue structures of the upper abdomen. RAD/Chest 1 View (Portable) IMPRESSION: Normal x-ray examination of the chest and slightly better inspiratory effort is the only new finding when compared to 09/17/2018. Electronically Signed: Shaun Reese MD at 8:20 EDT , Service support ,
[2019-09-16] MEDS: Acetaminophen 500 MG Tablet 1000 MG PO (08:31)
[2019-09-16 09:02] VITALS: PULSE 91; RESP 18
== END 2019-09-16 09:02 | disposition home or self-care (01) ==
PROVIDERS: Emergency Provider Emergency Medicine; PCP Preventive Medicine Occupational Medicine
DX: B34.9 Viral infection, unspecified (principal)
CPT/HCPCS: 71045; 87804; 87807; 99284

== ENCOUNTER 2019-12-15 10:55 | Emergency (ER) | payer BC, SELFPAY ==
[2019-12-15 10:56] VITALS: BP 143/67; PULSE 80; RESP 20; TEMP 36.2; O2SAT 94; BMI 26.1
--- NOTE | 2019-12-15 11:13 | EKG12_ITS ---
Test Reason : DYSRHYTHMIA Blood Pressure : / mmHG Vent. Rate : 074 BPM Atrial Rate : 074 BPM P-R Int : 138 ms QRS Dur : 076 ms QT Int : 384 ms P-R-T Axes : 045 033 062 degrees QTc Int : 426 ms Normal sinus rhythm Normal ECG Confirmed by LARISSA MEJÍA, HAI ([id number]), international editorial producer JOELLEN HERNANDEZ ([id number]) on 12/17/2019 9:01:35 AM Referred By: BB Confirmed By:HAI DIAS MD
--- NOTE | 2019-12-15 11:13 | RAD_ITS ---
STUDY: X-RAY CHEST REASON FOR EXAM: Female, 59 years old. CHEST PAIN -- MIGRAINE x2 DAYS, WITH NAUSEA -- HX OF MIGRAINES TECHNIQUE: AP upright portable view. COMPARISON: 09/16/2019. FINDINGS: The lungs are clear and expanded. There is no demonstrated pleural abnormality. Normal size heart. Normal mediastinum and alexandru. Normal visualized pulmonary arteries. Normal visualized aortic arch and descending thoracic aorta. Normal visualized thoracic spine. Normal visualized ribs, clavicles, and shoulders. There is no demonstrated abnormality of the visualized soft tissue structures of the upper abdomen. RAD/Chest 1 View (Portable) IMPRESSION: Normal x-ray examination of the chest and unchanged when compared to 09/16/2019. Electronically Signed: Shaun Reese MD at 12:23 EDT , Service support ,
--- NOTE | 2019-12-15 11:14 | CT_ITS ---
STUDY: CTA OF THE BRAIN REASON FOR EXAM: Female, 59 years old. HEADACHE X 5 DAYS RADIATION DOSAGE (If Supplied By Facility): CTDIvol = ( 28.04 ) mGy, DLP = ( 1278.06 ) mGycm TECHNIQUE: CT head without contrast followed by CT angiography with a multi-detector CT scanner. Data acquisition was obtained from the skull base through the vertex following intravenous administration of 100 mL of Isovue-370. MIP images were reconstructed from the axial data set. Post-processing of the angiographic images was performed, with multiplanar reformation and 3D reconstruction. Individualized dose optimization techniques were used for this CT. COMPARISON: None. FINDINGS: Normal bilateral petrous carotid arteries. Normal right cavernous carotid artery with a normal supraclinoid bifurcation. Normal left cavernous carotid artery with a normal supraclinoid bifurcation. Normal right A1 segment of the anterior cerebral artery. Normal left A1 segment of the anterior cerebral artery. Normal intact anterior communicating artery (ACOM). Normal bilateral A2 segments of the anterior cerebral arteries. Normal right M1 and M2 segments of the middle cerebral arteries, with a normal M1 bifurcation. Normal left M1 and M2 segments of the middle cerebral arteries, with a normal M1 bifurcation. No visible right posterior communicating artery (PCOM). Normal left posterior communicating artery (PCOM). Normal bilateral vertebral arteries. The left is dominant. Normal basilar artery with a normal basilar bifurcation. The visualized bilateral superior cerebellar (SCA) arteries are normal. Normal bilateral P1, P2 and visualized P3 segments of the posterior cerebral arteries. There is no demonstrated aneurysm of the [place]. There is no demonstrated abnormality of the visualized brain. CT/CTA Head W/WO Contrast IMPRESSION: 1. Normal CT head without contrast. 2. Normal CTA Head without suspicious vaso-occlusive disease or intracranial aneurysm of the anterior and posterior intracerebral circulation. Electronically Signed: Shaun Reese MD at 12:26 EDT , Service support ,
--- NOTE | 2019-12-15 11:23 | ED.VIS.GEN ---
History of Present Illness Chief Complaint: Headache Informant: Patient, Significant Other Onset: Weeks - 1 Context: Gradual Onset Timing: Continuous Quality: throbbing, aching Location: bifrontal, retroorbital Current Severity: Severe Maximum Severity: Severe Worsened by: light Relieved by: nothing Associated Symptoms: nausea. intermittent chest pain and LUE pain. Narrative: Patient presents for an unrelenting headache that has been there for 1 week, much worse in the past 4 or 5 days. She has been self treating this headache with Percocet. She is in pain management for sciatica and arthritis throughout her body, except it is not in her upper back or her neck, and she has Percocet for that. She was recently prescribed Imitrex but has not been able to try it yet since she has had this continuous headache. She states that she developed some type of arthritis several years ago that they suggest has been possibly some type of rheumatologic arthritis, and states that after that developed she developed these headaches that have been an issue off and on for the past 2 years. She has seen her PCP for this, but has had no imaging of her brain. She states her father had a cerebral aneurysm. She denies any loss of consciousness. She states for the past 6 months or so she has had intermittent chest pains that only occur when her migraine is present, and she has been having those for the past week as well. It is sharp, gives her left arm pain simultaneously, they thompson together. She states the episodes are brief but occur frequently as they are now. She denies any weakness in her arm. She sometimes gets numbness in her face bilaterally when it occurs, with the headaches. She denies any numbness or weakness in her arms or legs or inability to walk, or maintain balance. She denies neck stiffness or fevers. Today, she states that other than intermittent nosebleeds, she has had no different symptoms than usual with these headaches, except it is severe and she cannot get it to go away. She has many medications declared in her allergy list. We discussed most of these. It seems other than IV contrast dye, she gets nauseated or anxious with all of the medications and has no true allergies to diphenhydramine, prochlorperazine, ibuprofen, ondansetron at least. With regards to IV contrast dye, she has had it several times without any issues other than anxiety except for once, she developed hives later at home, came back to an outside hospital other than this 1, where she was treated with steroids and antihistamines, and she states she does not do well with steroids either. - Past Medical History (1) Anxiety Status: Chronic (2) Gastritis Status: Chronic (3) Rheumatoid arthritis Status: Chronic Past Medical History - Allergies and Home Meds Allergies/Adverse Reactions: Allergies adhesive tape Allergy (Verified 12/15/19 10:55) Rash alprazolam [From Xanax] Allergy (Verified 12/15/19 10:55) Unknown cyclobenzaprine HCl [From Flexeril] Allergy (Verified 12/15/19 10:55) Unknown diphenhydramine HCl [From Benadryl] Allergy (Verified 12/15/19 10:55) Unknown ibuprofen Allergy (Verified 12/15/19 10:55) Nausea Iodinated Contrast Media [DYEE] Allergy (Verified 12/15/19 10:55) Other panic attack prochlorperazine edisylate [From Compazine] Allergy (Verified 12/15/19 10:55) Unknown prochlorperazine maleate [From Compazine] Allergy (Verified 12/15/19 10:55) Unknown red dye Allergy (Verified 12/15/19 10:55) Nausea acetaminophen [From Tylenol] Adverse Reaction (Verified 12/15/19 10:55) Other ondansetron [From Zofran (as hydrochloride)] Adverse Reaction (Verified 12/15/19 10:55) Nausea/Vom/Diarrhea Primary Care Physician: Benson Mckeon DO [Primary Care Provider] - 3-5 Days Surgical History: - - vaginal mesh/reconstruction Lives: Spouse/ Significant Other Smoking Status: Never smoker Review of Systems General: Reports: Malaise. Denies: Chills, Fever, Sweats Eyes: Reports: Blurred Vision - bilaterally - when RIVAS present, - - photophobia. Denies: Diplopia ENT: Denies: Bilateral ear pain, Rhinorrhea, Sore throat Cardiovascular: Reports: Chest pain. Denies: Palpitations, Heart racing Respiratory: Denies: Dyspnea, Cough, Dyspnea on exertion Gastrointestinal: Reports: Nausea. Denies: Abdominal pain, Vomiting, Diarrhea, Melena, Hematochezia Genitourinary: Denies: Dysuria, Hematuria, Frequency Musculoskeletal: Reports: Arthralgias, Back pain - chronic, Extremity Pain. Denies: Myalgias, Neck pain, Swelling Skin: Denies: Rash, Wounds Neurological: Reports: Headache, Numbness - bilat cheeks/face. Denies: Weakness Physical Exam Vital Signs/Narrative: Vital Signs Temp Pulse Resp BP Pulse Ox 12/15/19 10:56 97.2 F L 80 20 H 143/67 H 94 Inital Vital Signs reviewed: Yes General: Well nourished, Well developed, No Acute Distress - tearful Head: Normocephalic, Atraumatic Eyes: Perrl, EOMI, - - photophobic. nml conj bilat. ENT: Moist mucous membranes, No rhinorrhea, - - POP clear. Negative for: Nasal congestion, Sinus tenderness Neck: Supple, Nontender, No lymphadenopathy Cardiovascular: Regular rate, Regular rhythm, No murmurs Respiratory: No distress, CTA bilaterally, Chest nontender Abdomen: Soft, Nontender, Nondistended, Normal bowel sounds Back: Nontender, Normal Inspection Extremities: Nontender, No edema Skin: Normal color, No rash, No Trauma Neurological: Alert, Oriented x3, Cranial nerves II-XII grossly intact, Normal Strength, Normal Sensation, Normal Gait Psychological: Tearful Diagnostic/Tx/Re-eval Impressions Chest X-Ray 12/15/19 11:13 IMPRESSION: Normal x-ray examination of the chest and unchanged when compared to 09/16/2019. Electronically Signed: Shaun Reese MD at 12:23 EDT , Service support , Head CTA 12/15/19 11:14 IMPRESSION: 1. Normal CT head without contrast. 2. Normal CTA Head without suspicious vaso-occlusive disease or intracranial aneurysm of the anterior and posterior intracerebral circulation. Electronically Signed: Shaun Reese MD at 12:26 EDT , Service support , 12/15/19 11:13 Chest 1 View (Portable) [RAD] Stat 12/15/19 11:14 CTA Head W/WO Contrast [CT] Stat Laboratory Results 06/21/20 06/21/20 11:35 11:35 WBC 4.5 RBC 4.04 L Hgb 13.0 Hct 40.0 MCV 99.0 MCH 32.2 H MCHC 32.5 RDW Std Deviation 53.9 H RDW Coeff of Maximo 14.7 H Plt Count 101 L MPV 9.5 Immature Gran % (Auto) 0.000 Neut % (Auto) 24.9 L Lymph % (Auto) 62.7 H [place] % (Auto) 9.8 Eos % (Auto) 2.2 Baso % (Auto) 0.4 Absolute Neuts (auto) 1.1 L Absolute Lymphs (auto) 2.82 Nucleated RBC % 0 Platelet Estimate SLT DEC Sodium 138 Potassium 4.8 Chloride 110 H Carbon Dioxide 24.0 Anion Gap 4 L BUN 10 Creatinine 1.04 H Estim Creat Clear Calc 46.07 Est GFR (MDRD) Af Amer 70 Est GFR (MDRD) Non-Af 58 L BUN/Creatinine Ratio 9.6 L Glucose 94 Calcium 9.5 Troponin I < 0.015 - Rhythm Strip Rhythm Strip: Sinus Rhythm Rate: 75 Ectopy: None - EKG Initial EKG Interpretation: Sinus Rhythm, No Acute Injury Pattern - Normal EKG - Medical Decision Making I discussed with this patient at length regarding work-up and treatment, pros and cons of all of this. I think she needs imaging, I doubt that she has an acutely ruptured aneurysm or is in a life-threatening scenario right now, however I think she needs to have CT angiography of the head in order to evaluate for this and I recommend doing it now, as soon as possible. However that entails giving her contrast, and doing that entails giving her steroids. Additionally, she states she has done well with Phenergan in the past, however this hospital has advised physicians to avoid IV promethazine due to the possibility of tissue necrosis if it extravasates accidentally. I discussed with her the fact that I want her to feel better and not worse, and that I would like her permission to do all of these medications and treatments. She states she understands all of that, she seems oriented enough to have capacity to make these decisions on her own, and her is in agreement, she wants me to give her what I feel is best. Given the fact that she has been taking narcotics for these headaches, she likely is having rebound primary headaches which is why she is so severe and unrelenting with regards to her headache right now, so I think steroids could help that as well. In addition, further history obtained later in the visit adds the fact that the patient is on Topamax but has not been taking it appropriately; she was on it for a while but then stopped taking it and was now prescribed it again at a higher dose but has been taking it as needed instead of twice daily for prevention as prescribed. She is agreeable to getting steroids. Therefore she was pretreated with Solu-Medrol, in addition to Toradol, Reglan, and Cogentin to help prevent side effects from all of these medications in addition to the IV contrast. Patient did not have any side effects from the IV contrast or the above medications. However they did not help her headache. She says she was feeling a little anxious, but objectively did not appear so and had no akathisia. She was then given valproic acid 500 mg IV. Prior to the initiation of that infusion, she was starting to improve. By the end of it, her headache was completely resolved. She feels much better. I offered her a prescription for prednisone, given the high likelihood of rebound headaches being involved here, that may help given that she will likely continue to take narcotics for her other issues. Discussed follow-up and taking Topamax appropriately. ED Disposition - Plan for ED Patient: Disposition: Home or Assisted Living Diagnosis: Migraine headache, Intermittent chest pain Instructions: ED, Migraine (Classical), ED Headache Rebound Prescriptions: Prednisone [Deltasone] 40 mg PO DAILY #10 tab Transmission Status: Pending to [facility] Referrals: Benson Mckeon DO [Primary Care Provider] - 3-5 Days
[2019-12-15 11:41] LABS: Absolute Lymphocyte Count 2.82 X10^3/uL (0.83-4.51); Absolute Neutrophil Count 1.1 X10^3/uL (2.0-7.7); Basophil# 0.02 X10^3/uL; Basophil% 0.4 % (0-1); Eosinophils% 2.2 % (0-5); Lymphocyte # 2.82 X10^3/ul (4.0); Lymphocyte % 62.7 % (19-41); Mean Corp Hgb Conc 32.5 g/dL (32-36); Mean Corpuscular Hgb 32.2 pg (27.0-32.0); Mean Platelet Vol. 9.5 fl (6.2-12.0); Monocyte# 0.44 X10^3/uL; Monocyte% 9.8 % (0-10); NRBC Flagged by Analyzer 0 % (0-5); Neutrophil # 1.12 X10^3/uL (2.7-7.7); Neutrophil % 24.9 % (47-70); POSITIVE COUNT YES; Platelet Count 101 K/mm3 (150-450); RBC Distribution Width CV 14.7 % (11.6-14.6); RBC Distribution Width SD 53.9 fl (35.1-43.9); Red Blood Count 4.04 M/mm3 (4.2-5.4); White Blood Count 4.5 K/mm3 (4.4-11.0)
[2019-12-15] MEDS: MethylPREDNISolone 125 MG/2 ML Vial IV (11:43)
[2019-12-15] MEDS: Ketorolac 30 MG/ML Syringe IV (11:45)
[2019-12-15 11:46] LABS: Differential Indicated SCAN CRITERIA MET
[2019-12-15] MEDS: Metoclopramide 10 MG/2 ML Vial IV (11:47)
[2019-12-15 11:58] LABS: Anion Gap 4 (5-15); BUN 10 mg/dL (7-18); BUN/Creat Ratio 9.6 RATIO (10-20); Calcium,Total 9.5 mg/dL (8.5-10.1); Chloride 110 mmol/L (98-107); Creatinine, Serum 1.04 mg/dL (0.55-1.02); EST Glomerular Filtration Rate 58 mL/min (>60); Est Glom Filt Rate - Afr Amer 70 mL/min (>60); Estimated Creatinine Clearance 46.07 ml/min; Glucose 94 mg/dL (74-106); Potassium 4.8 mmol/L (3.5-5.1); Sodium Level 138 mmol/L (136-145)
[2019-12-15 12:10] LABS: Platelet Estimate SLT DEC (ADEQ)
[2019-12-15 12:41] VITALS: BP 101/54; PULSE 74; RESP 22; O2SAT 92
[2019-12-15 14:00] VITALS: BP 129/74; PULSE 62; RESP 20; O2SAT 94
--- NOTE | 2019-12-15 14:10 | ED.RN ---
pt in bed and reported that gotti is gone now! pt talking with on where they should go eat after dc. chart up for reeval.
[2019-12-15 14:41] VITALS: BP 129/74; PULSE 68; RESP 16; O2SAT 96
== END 2019-12-15 15:12 | disposition home or self-care (01) ==
PROVIDERS: Emergency Provider Emergency Medicine; PCP Preventive Medicine Occupational Medicine
DX: G43.909 Migraine, unspecified, not intractable, without status migrainosus (principal); R07.89 Other chest pain; F41.9 Anxiety disorder, unspecified; M06.9 Rheumatoid arthritis, unspecified; Z79.899 Other long term (current) drug therapy; M54.30 Sciatica, unspecified side
CPT/HCPCS: 70496; 71045; 80048; 84484; 85025; 93005; 96361; 96365; 96375; 99285; J7030; Q9967; A4216

== ENCOUNTER 2020-04-03 05:32 | Emergency (ER) | payer BC, SELFPAY ==
[2020-03-26 13:27] VITALS: BMI 27.1
[2020-04-03 05:34] VITALS: TEMP 36.1; BMI 28.9
[2020-04-03 05:43] VITALS: BP 144/82; PULSE 84; RESP 18; O2SAT 94
--- NOTE | 2020-04-03 05:48 | RAD_ITS ---
STUDY: X-RAY CHEST REASON FOR EXAM: Female, 60 years old. Sore throat x 2 weeks (strep -), abd pain/nausea, cough. Metallic taste with food TECHNIQUE: Single AP portable view of the chest. COMPARISON: 12/15/2019 FINDINGS: There are superimposed monitor leads. The lungs are clear and expanded. There is no demonstrated pleural abnormality. Normal size heart. Normal mediastinum and alexandru. Normal visualized pulmonary arteries. Normal visualized aortic arch and descending thoracic aorta. Normal visualized thoracic spine. Normal visualized ribs, clavicles, and shoulders. There is no demonstrated abnormality of the visualized soft tissue structures of the upper abdomen. RAD/Chest 1 View (Portable) IMPRESSION: No acute cardiopulmonary disease. No significant interval change. Electronically Signed: Devorah Thomas MD at 6:18 EDT , Service support ,
--- NOTE | 2020-04-03 05:59 | ED.DCSUM_ITS ---
History of Present Illness Chief Complaint: Sore Throat Detail of Chief Complaint: So abdominal pain, nonproductive cough that started yesterday evening Informant: Patient, Significant Other Onset: Yesterday - GI and respiratory symptoms, Weeks - Sore throat for 2 to 3 weeks Context: Sudden Onset Timing: Continuous Quality: Throat pain and respiratory and GI symptoms Location: Throat Current Severity: Mild Maximum Severity: Moderate Worsened by: Swallowing liquids or solids Relieved by: Nothing Associated Symptoms: Malaise, myalgias arthralgias Narrative: Patient is a 60-year-old woman who presents with several symptoms. The throat pain started 2 to 3 weeks ago. She was seen at the [facility] rapid strep test was negative. She has increased pain with swallowing liquids or solids. There is been no drooling. She does report headache. She denies photophobia, neck pain or neck stiffness. She does report congestion and cough that started last evening. The cough is nonproductive. She also reports abdominal discomfort that is in the upper quadrants with nausea. There is no reported vomiting or diarrhea. She denies urinary symptoms. She denies joint swelling. She does report muscle aches and joint aches. Prior similar symptoms: Yes - Sore throat respiratory and GI new Recent Illness/Hospitalization: Yes - Sore throat, viral pharyngitis - Past Medical History (1) Anxiety Status: Chronic (2) Gastritis Status: Chronic (3) Rheumatoid arthritis Status: Chronic Past Medical History - Allergies and Home Meds Allergies/Adverse Reactions: Allergies adhesive tape Allergy (Verified 04/03/20 05:34) Rash alprazolam [From Xanax] Allergy (Verified 04/03/20 05:34) Unknown cyclobenzaprine HCl [From Flexeril] Allergy (Verified 04/03/20 05:34) Unknown diphenhydramine HCl [From Benadryl] Allergy (Verified 04/03/20 05:34) Unknown ibuprofen Allergy (Verified 04/03/20 05:34) Nausea Iodinated Contrast Media [DYEE] Allergy (Verified 04/03/20 05:34) Other panic attack prochlorperazine edisylate [From Compazine] Allergy (Verified 04/03/20 05:34) Unknown prochlorperazine maleate [From Compazine] Allergy (Verified 04/03/20 05:34) Unknown red dye Allergy (Verified 04/03/20 05:34) Nausea acetaminophen [From Tylenol] Adverse Reaction (Verified 04/03/20 05:34) Other ondansetron [From Zofran (as hydrochloride)] Adverse Reaction (Verified 04/03/20 05:34) Nausea/Vom/Diarrhea Primary Care Physician: Benson Mckeon DO [Primary Care Provider] - Prior records reviewed: Yes Surgical History: noncontributory, - - vaginal mesh/reconstruction Lives: Spouse/ Significant Other Smoking Status: Never smoker Alcohol: None Drugs: None Review of Systems General: Reports: Malaise. Denies: Chills, Fever, Subjective, Sweats Eyes: Reports: - - Photophobia.. Denies: Visual changes - bilaterally, Blurred Vision - bilaterally ENT: Reports: Rhinorrhea, Sore throat, - - No dysphonia or ear pain, tinnitus or ear drainage. Denies: Bilateral ear pain Cardiovascular: Denies: Chest pain, Palpitations Respiratory: Reports: Dyspnea, Cough, Dyspnea on exertion. Denies: Sputum, Orthopnea, Paroxysmal nocturnal dyspnea Gastrointestinal: Reports: Abdominal pain, Nausea. Denies: Vomiting, Diarrhea, Melena, Hematochezia Genitourinary: Denies: Dysuria, Hematuria, Frequency Musculoskeletal: Reports: Myalgias, Arthralgias, Back pain. Denies: Neck pain, Swelling, Extremity Pain Skin: Denies: Rash, Wounds Neurological: Reports: Headache. Denies: Weakness, Parasthesia Endocrine: Denies: Polyuria, Polydipsia Hematologic: Denies: Easy bruising, Easy bleeding Physical Exam Vital Signs/Narrative: Vital Signs Temp Pulse Resp BP Pulse Ox 04/03/20 05:43 84 18 144/82 H 94 04/03/20 05:34 96.9 F L Inital Vital Signs reviewed: Yes General: Well nourished, Well developed, Obese, - - Patient appears older than age and does not appear toxic. She is tearful. Head: Normocephalic, Atraumatic Eyes: Perrl, EOMI, - - Conjunctive is not injected.. Negative for: Pale conjunctiva, Scleral icterus ENT: No rhinorrhea, TM's clear, Dry mucous membranes, - - Patient has no teeth. Negative for: Sinus tenderness Neck: Supple, Nontender, No lymphadenopathy, No JVD Cardiovascular: Regular rate, Regular rhythm, No murmurs, Normal S1, Normal S2 Respiratory: No distress, CTA bilaterally, Chest nontender Abdomen: Soft, Nontender, Nondistended, Normal bowel sounds, No masses Back: Nontender, Normal Inspection Extremities: Nontender, No edema Skin: Normal color, No rash, No Trauma. Negative for: Cyanosis, Diaphoresis, Jaundice Neurological: Alert, Oriented x3, Cranial nerves II-XII grossly intact, Normal Strength, Normal Sensation Psychological: Tearful, - - Affect is flat. Diagnostic/Tx/Re-eval Impressions Chest X-Ray 04/03/20 05:48 IMPRESSION: No acute cardiopulmonary disease. No significant interval change. Electronically Signed: Devorah Thomas MD at 6:18 EDT , Service support , 04/03/20 05:48 Chest 1 View (Portable) [RAD] Stat Laboratory Results 04/03/20 04/03/20 05:55 05:55 WBC 4.1 L RBC 3.69 L Hgb 11.8 L Hct 36.4 L MCV 98.6 MCH 32.0 MCHC 32.4 RDW Std Deviation 47.2 H RDW Coeff of Maximo 13.2 Plt Count 91 L MPV 9.4 Immature Gran % (Auto) 0.000 Neut % (Auto) 29.3 L Lymph % (Auto) 59.9 H [place] % (Auto) 8.1 Eos % (Auto) 2.5 Baso % (Auto) 0.2 Absolute Neuts (auto) 1.2 L Absolute Lymphs (auto) 2.43 Nucleated RBC % 0 Sodium 139 Potassium 3.5 Chloride 108 H Carbon Dioxide 25.0 Anion Gap 6 BUN 10 Creatinine 0.91 Estim Creat Clear Calc 52.00 Est GFR (MDRD) Af Amer 81 Est GFR (MDRD) Non-Af 67 BUN/Creatinine Ratio 11.0 Glucose 147 H Calcium 8.9 Patient has neutropenia with lymphocytosis. This may represent COVID-19 which is a viral infection. Basic metabolic panel is remarkable slight elevation of glucose of 147. Chest x-ray interpreted radiologist prior to my review reveals no acute pathology. Cardiac silhouette and size normal. Hilum without lymphadenopathy or mass. Osseous structures are unremarkable. There is mild chronic changes noted in the lung. - Medical Decision Making Differential diagnosis includes viral illness, COVID-19, bacterial pneumonia. Will obtain chest x-ray, blood work and nasal swab for COVID-19. Her posterior pharynx appears unremarkable. There is no tenderness with movement of the larynx and there is no inspiratory expiratory stridor. There is no concern for and patient had a negative strep test. Clinically patient appears dehydrated. Since there is concern for Kopit she received only a 500 cc bolus of normal saline. ED Disposition - Plan for ED Patient: Disposition: Home or Assisted Living Diagnosis: Suspected 2019 novel coronavirus infection Instructions: ED Viral Syndrome Referrals: Benson Mckeon DO [Primary Care Provider] - 1 Week if not improving Additional Instructions: Your COVID-19 test results may be available in 2 to 5 days. You have a viral infection. This may represent rhinovirus versus enterovirus versus COVID-19. Recommend self-isolation.
[2020-04-03 06:06] LABS: Absolute Lymphocyte Count 2.43 X10^3/uL (0.83-4.51); Absolute Neutrophil Count 1.2 X10^3/uL (2.0-7.7); Basophil# 0.01 X10^3/uL; Basophil% 0.2 % (0-1); Eosinophils% 2.5 % (0-5); Hematocrit 36.4 % (37-47); Hemoglobin 11.8 g/dL (12.0-15.0); Lymphocyte # 2.43 X10^3/ul (4.0); Lymphocyte % 59.9 % (19-41); Mean Corp Hgb Conc 32.4 g/dL (32-36); Mean Corpuscular Volume 98.6 fL (81-99); Mean Platelet Vol. 9.4 fl (6.2-12.0); Monocyte# 0.33 X10^3/uL; Monocyte% 8.1 % (0-10); NRBC Flagged by Analyzer 0 % (0-5); Neutrophil # 1.19 X10^3/uL (2.7-7.7); Neutrophil % 29.3 % (47-70); POSITIVE COUNT YES; Platelet Count 91 K/mm3 (150-450); RBC Distribution Width CV 13.2 % (11.6-14.6); RBC Distribution Width SD 47.2 fl (35.1-43.9); Red Blood Count 3.69 M/mm3 (4.2-5.4); White Blood Count 4.1 K/mm3 (4.4-11.0)
[2020-04-03 06:22] LABS: Anion Gap 6 (5-15); BUN 10 mg/dL (7-18); Calcium,Total 8.9 mg/dL (8.5-10.1); Chloride 108 mmol/L (98-107); Creatinine, Serum 0.91 mg/dL (0.55-1.02); EST Glomerular Filtration Rate 67 mL/min (>60); Est Glom Filt Rate - Afr Amer 81 mL/min (>60); Glucose 147 mg/dL (74-106); Potassium 3.5 mmol/L (3.5-5.1); Sodium Level 139 mmol/L (136-145)
[2020-04-03 07:15] VITALS: BP 123/57; PULSE 85; RESP 16; O2SAT 95
--- NOTE | 2020-04-03 07:15 | ED.RN ---
IV DC'ED, CATHETER INTACT, GAUZE DRESSING PLACED. DISCHARGE INSTRUCTIONS GIVEN TO AND REVIEWED WITH PATIENT AND SPOUSE, BOTH DENY QUESTIONS OR CONCERNS AND VOICE UNDERSTANDING OF DISCHARGE INSTRUCTIONS. PT AMBULATES OUT OF ROOM WITHOUT DIFFICULTY.
== END 2020-04-03 07:15 | disposition home or self-care (01) ==
PROVIDERS: Emergency Provider Emergency Medicine; PCP Preventive Medicine Occupational Medicine
DX: B34.9 Viral infection, unspecified (principal); M06.9 Rheumatoid arthritis, unspecified; E66.9 Obesity, unspecified; Z68.28 Body mass index [BMI] 28.0-28.9, adult
CPT/HCPCS: 71045; 80048; 85025; 87635; 99285; J7030; A4216; U0003

== ENCOUNTER 2020-04-16 18:21 | Observation (INO) | payer BC, SELFPAY ==
[2020-04-16] VITALS (11 sets, daily range): BP systolic 108–147; BP diastolic 57–78; PULSE 75–88; RESP 16–19; TEMP 36.4–37; O2SAT 92–98; BMI 29.5; BMI 28.2
--- NOTE | 2020-04-16 18:49 | ED.RN ---
PULLED OLD LULI FOR
--- NOTE | 2020-04-16 19:07 | EKG12_ITS ---
Test Reason : CP Blood Pressure : / mmHG Vent. Rate : 079 BPM Atrial Rate : 079 BPM P-R Int : 150 ms QRS Dur : 080 ms QT Int : 372 ms P-R-T Axes : 053 046 063 degrees QTc Int : 426 ms Normal sinus rhythm Normal ECG Confirmed by ANTONIA MEJÍA, DAVID ([id number]), sports editor JOELLEN HERNANDEZ ([id number]) on 04/20/2020 12:44:54 PM Referred By: Sissy Kamara Confirmed By:DAVID KNIGHT MD
--- NOTE | 2020-04-16 19:07 | ED.VIS.GEN ---
History of Present Illness Chief Complaint: Chest Pain Informant: Patient, Family Narrative: 60-year-old female presenting with intermittent chest pain for the last 3 weeks. She states that it would feel heavy on the center of her chest and sometimes radiate to her back. She states these episodes would last 15 minutes at a time or lasts. Today she relates that she had it for about 35 minutes after eating yogurt and became nauseous. She states that the pain did radiate to her back again. She describes it as pressure. She states she has had a fever of 99.6. She has an intermittent cough. She said she was previously tested negative for Covid?19 Simply. She states that she has no recent stress test or echocardiogram. Past Medical History - Allergies and Home Meds Allergies/Adverse Reactions: Allergies adhesive tape Allergy (Verified 04/16/20 18:21) Rash alprazolam [From Xanax] Allergy (Verified 04/16/20 18:21) Unknown cyclobenzaprine HCl [From Flexeril] Allergy (Verified 04/16/20 18:21) Unknown diphenhydramine HCl [From Benadryl] Allergy (Verified 04/16/20 18:21) Unknown ibuprofen Allergy (Verified 04/16/20 18:21) Nausea Iodinated Contrast Media [DYEE] Allergy (Verified 04/16/20 18:21) Other panic attack prochlorperazine edisylate [From Compazine] Allergy (Verified 04/16/20 18:21) Unknown prochlorperazine maleate [From Compazine] Allergy (Verified 04/16/20 18:21) Unknown red dye Allergy (Verified 04/16/20 18:21) Nausea acetaminophen [From Tylenol] Adverse Reaction (Verified 04/16/20 18:21) Other ondansetron [From Zofran (as hydrochloride)] Adverse Reaction (Verified 04/16/20 18:21) Nausea/Vom/Diarrhea Prior records reviewed: Yes Past Medical History: - - RA, gastritis, migraine headache, anxiety Surgical History: noncontributory, - - vaginal mesh/reconstruction Lives: Spouse/ Significant Other Smoking Status: Never smoker Alcohol: None Drugs: None - Family History Maternal Family History: Reports: Heart Disease Paternal Family History: Reports: Cancer Review of Systems General: Reports: Chills, Sweats Eyes: Denies: Visual changes - bilaterally, Diplopia ENT: Denies: Rhinorrhea, Sore throat Cardiovascular: Reports: Chest pain Respiratory: Reports: Cough. Denies: Dyspnea, Sputum Gastrointestinal: Reports: Nausea. Denies: Abdominal pain Genitourinary: Denies: Dysuria, Hematuria Musculoskeletal: Reports: Myalgias - Chronic secondary to RA she believes Skin: Denies: Rash, Abscess Neurological: Reports: Headache. Denies: Weakness, Parasthesia, Numbness Physical Exam Vital Signs/Narrative: Vital Signs Temp Pulse Resp BP Pulse Ox 04/16/20 19:03 86 19 H 123/63 H 98 04/16/20 18:33 98 04/16/20 18:22 97.8 F 88 17 147/66 H 94 General: Obese, No Acute Distress Head: Normocephalic, Atraumatic Eyes: Perrl, EOMI Cardiovascular: Regular rate, Regular rhythm Respiratory: No distress, CTA bilaterally Extremities: Nontender, No edema Skin: Normal color, No rash. Negative for: Cyanosis, Diaphoresis Neurological: Alert, Oriented x3, Cranial nerves II-XII grossly intact Psychological: Normal affect, Normal Mood Diagnostic/Tx/Re-eval - Rhythm Strip Rhythm Strip: Sinus Rhythm Rate: 92 - EKG Initial EKG Interpretation: Sinus Rhythm, Non-Specific ST Changes Follow-up EKG Interpretation: Sinus Rhythm, No Acute Injury Pattern - Medical Decision Making Was seen and evaluated on arrival for chest pain. She did state that she also had a headache from the nitroglycerin she was given, however the nitroglycerin did improve her pain. She states that she also has a migraine that she was treated with a migraine cocktail in the ED. During her stay she had a repeat of her chest pain. She had 2 separate EKGs which showed no signs of ischemia. Troponin is negative. D-dimer is negative. Chest x-ray is negative. Patient's heart score is a 3 but given that she continues to have intermittent chest pain I felt she needed to be admitted to the hospital. I discussed this with the hospitalist who was amenable to observing her. Patient was given aspirin prior to transport to the floor. Impression: 1. Chest pain 2. Migraine headache ED Disposition - Plan for ED Patient: Disposition: [facility]
--- NOTE | 2020-04-16 19:23 | RAD_ITS ---
STUDY: X-RAY CHEST REASON FOR EXAM: Female, 60 years old. CHEST PAIN FOR SEVERAL WEEKS TECHNIQUE: Single AP portable view of the chest. COMPARISON: 04/03/2020. FINDINGS: The lungs are clear and expanded. There is no demonstrated pleural abnormality. Normal size heart. Normal mediastinum and alexandru. Normal visualized pulmonary arteries. Normal visualized aortic arch and descending thoracic aorta. Normal visualized thoracic spine. Normal visualized ribs, clavicles, and shoulders. There is no demonstrated abnormality of the visualized soft tissue structures of the upper abdomen. RAD/Chest 1 View (Portable) IMPRESSION: Normal x-ray examination of the chest. Electronically Signed: Georgina Camilo MD at 20:00 EDT Tel , Service support ,
[2020-04-16] MEDS: Morphine 4 MG/ML Syringe IV ×2 (19:32→20:14)
[2020-04-16 19:47] LABS: Absolute Neutrophil Count 0.9 X10^3/uL (2.0-7.7); Basophil# 0.01 X10^3/uL; Basophil% 0.4 % (0-1); Differential Indicated SCAN CRITERIA MET; Eosinophils% 3.6 % (0-5); Hematocrit 33.9 % (37-47); Hemoglobin 11.2 g/dL (12.0-15.0); Lymphocyte % 56.9 % (19-41); Mean Corpuscular Hgb 31.9 pg (27.0-32.0); Mean Corpuscular Volume 96.6 fL (81-99); Mean Platelet Vol. 9.2 fl (6.2-12.0); Monocyte# 0.25 X10^3/uL; Monocyte% 8.9 % (0-10); NRBC Flagged by Analyzer 0 % (0-5); Neutrophil # 0.85 X10^3/uL (2.7-7.7); Neutrophil % 30.2 % (47-70); POSITIVE DIFFERENTIAL YES; Platelet Count 104 K/mm3 (150-450); RBC Distribution Width CV 13.3 % (11.6-14.6); RBC Distribution Width SD 47.6 fl (35.1-43.9); Red Blood Count 3.51 M/mm3 (4.2-5.4); White Blood Count 2.8 K/mm3 (4.4-11.0)
[2020-04-16 20:01] LABS: Anion Gap 6 (5-15); BUN 8 mg/dL (7-18); BUN/Creat Ratio 9.4 RATIO (10-20); Calcium,Total 9.2 mg/dL (8.5-10.1); Chloride 109 mmol/L (98-107); Creatinine, Serum 0.85 mg/dL (0.55-1.02); EST Glomerular Filtration Rate 73 mL/min (>60); Est Glom Filt Rate - Afr Amer 88 mL/min (>60); Estimated Creatinine Clearance 55.67 ml/min; Glucose 152 mg/dL (74-106); Potassium 3.6 mmol/L (3.5-5.1); Sodium Level 141 mmol/L (136-145)
--- NOTE | 2020-04-16 20:02 | EKG12_ITS ---
Test Reason : CP Blood Pressure : / mmHG Vent. Rate : 092 BPM Atrial Rate : 092 BPM P-R Int : 140 ms QRS Dur : 080 ms QT Int : 360 ms P-R-T Axes : 057 042 062 degrees QTc Int : 445 ms Normal sinus rhythm Nonspecific ST abnormality Abnormal ECG Confirmed by ANTONIA MEJÍA, DAVID ([id number]), newspaper photo editor JOELLEN HERNANDEZ ([id number]) on 04/20/2020 12:45:14 PM Referred By: Sissy Kamara Confirmed By:DAVID KNIGHT MD
[2020-04-16 20:34] LABS: D-Dimer Quantitative (DVT/PE) <= 0.27 FEU/ug/m (0.27-0.49)
[2020-04-16 20:35] LABS: Differential Comment SCANNED
[2020-04-16] MEDS: DiphenhydrAMINE 50 MG/ML Syringe 25 MG IV (21:16)
[2020-04-16] MEDS: Metoclopramide 10 MG/2 ML Vial IV (21:17)
[2020-04-16] MEDS: Ketorolac 15 MG/ML Vial IM (21:20)
--- NOTE | 2020-04-16 22:14 | HP.PCM_ITS ---
Problem List (1) Chest pain Status: Acute (2) Chronic pain syndrome Status: Chronic (3) Rheumatoid arthritis Status: Chronic (4) Anxiety Status: Chronic (5) Gastritis Status: Chronic History of Present Illness Date of Admission: 04/16/20 Chief Complaint: Chest pain. The patient is a 60 year old F with past medical history as mentioned above presented to the emergency room because of chest pain. Her symptoms started 3 weeks ago with intermittent chest pain, retrosternal pain, not related to activity, initially was mild pain and has been getting worse over the last several days, described as pressure-like pain, sometimes radiates to her back associated with shortness of breath and nausea, lasts for about 15 minutes and without relieving factors. Currently, she mentioned that her pain is easing up after she received IV morphine and nitroglycerin. In the emergency department, her vital signs were stable. Her routine blood work was remarkable for pancytopenia which is chronic and likely due to side effects of Enbrel. Chest x-ray showed no acute findings. D-dimer was negative. EKG revealed normal sinus rhythm, normal SC interval, normal QRS, no acute ischemic changes. Troponin was negative. She has been injected for atypical chest pain for evaluation. Past Medical History Past Medical History (Chronic Problems): Chronic Problems (Last Reviewed 03/26/20 @ 12:45 by Letitia Solares) Chronic pain syndrome (Chronic) Rheumatoid arthritis (Chronic) Anxiety (Chronic) Gastritis (Chronic) Allergies adhesive tape Allergy (Verified 04/16/20 18:21) Rash alprazolam [From Xanax] Allergy (Verified 04/16/20 18:21) Unknown cyclobenzaprine HCl [From Flexeril] Allergy (Verified 04/16/20 18:21) Unknown diphenhydramine HCl [From Benadryl] Allergy (Verified 04/16/20 18:21) Unknown ibuprofen Allergy (Verified 04/16/20 18:21) Nausea Iodinated Contrast Media [DYEE] Allergy (Verified 04/16/20 18:21) Other panic attack prochlorperazine edisylate [From Compazine] Allergy (Verified 04/16/20 18:21) Unknown prochlorperazine maleate [From Compazine] Allergy (Verified 04/16/20 18:21) Unknown red dye Allergy (Verified 04/16/20 18:21) Nausea acetaminophen [From Tylenol] Adverse Reaction (Verified 04/16/20 18:21) Other ondansetron [From Zofran (as hydrochloride)] Adverse Reaction (Verified 04/16/20 18:21) Nausea/Vom/Diarrhea Home Medications: Ambulatory Orders Medication Instructions Recorded Diazepam [Valium] 5 mg PO TID PRN 02/20/17 Etanercept [Enbrel] 50 mg SQ Q7D 08/04/17 Pantoprazole Sodium [Protonix] 40 mg PO DAILY PRN 11/18/17 Oxycodone HCl/Acetaminophen 1 tab PO BID PRN PRN 12/21/18 [Percocet 5/325] Pregabalin [Lyrica] 50 mg PO BID 12/21/18 Galcanezumab-Gnlm [Emgality] 120 mg SQ QMONTH PRN 06/19/19 proMETHazine tablet [Phenergan 25 mg PO Q4H PRN PRN 04/16/20 tablet] Surgical History: - - vaginal mesh/reconstruction Psychiatric History: Anxiety Lives: Spouse/ Significant Other Smoking Status: Never smoker Alcohol: None Drugs: None - *Family History Maternal History Items: Heart Disease Paternal History Items: Cancer Review of Systems Constitutional: Denies: Anorexia, Chills, Fever, Weakness, Fatigue Eyes: Denies: Blurred vision, Double vision, Drainage, Redness HEENT: Denies: Difficulty Hearing, Dysphasia, Ear Pain, Eye Pain, Nasal Congestion, Sore Throat Cardiovascular: Reports: Chest Pain, Chest Pressure. Denies: Edema, Heaviness, Light Headedness, Palpitations, Syncope Respiratory: Reports: Shortness of Breath. Denies: Cough, Pleuritic Pain, Sputum production, Wheezing Gastrointestinal: Reports: Nausea. Denies: Abdominal Pain, Constipation, Diarrhea, Vomiting Genitourinary: Denies: Dysuria, Frequency, Hematuria Musculoskeletal: Denies: Arm Pain, Back Pain, Foot Pain Skin: Denies: Dryness, Rash Neurological: Denies: Balance problems, Blurred vision, Double vision, Change in Speech, Slurred speech, Confusion, Headaches, Incoordination, Numbness Psychiatric: Reports: Anxiety. Denies: Depression Endocrine: Denies: Change in Body Habitus, Polydipsia, Polyuria VTE Information - Inpt Only VTE Present on Admission: No VTE Mechan Device Prophylaxis: None VTE Pharm Prophylaxis ordered?: No - Physical Exam Vitals/I&O's: Vital Signs Temp Pulse Resp BP Pulse Ox 97.8 F 83 16 108/57 L 94 04/16/20 18:22 04/16/20 21:23 04/16/20 21:23 04/16/20 21:23 04/16/20 21:23 Oxygen Flow Rate (L/min) 2 Oxygen Delivery Method Room Air Weight: 161 lb 6.054 oz Body Mass Index (BMI) 29.5 Intake and Output for Last 24 Hours 04/14/20 04/15/20 04/16/20 23:59 23:59 23:59 Intake Total 500 / 500 Balance 500 / 500 General: Alert, Oriented x3, Cooperative, No apparent distress HEENT: Atraumatic, PERRLA, EOMI, Normocephalic Oral: Moist Mucosa, No Gingival or Mucosal Lesions/ Ulcerations Neck: Supple, No JVD, Negative Carotid Bruits, Trachea Midline, Thyroid Normal Size and Texture Lungs: Clear to auscultation, Normal air movement, No rhonchi, No wheeze, No rales Cardiovascular: Regular rate, Regular Rhythm, Normal S1, Normal S2, PMI Normal Abdomen: Bowel Sounds Present, Soft, Non Tender, Non-Distended, No Hepato- splenomegaly Extremities: No clubbing, No cyanosis, No edema Skin: No rashes, No breakdown Lymphatic: No Cervical, Supraclavicular, or Inguinal Adenopathy Neurological: Cranial nerves II-XII grossly intact, Motor Exam 5/5 strength throughout Psych/Mental Status: Normal Affect, Appropriate, Alert and oriented to time, place, person, mood and affect Laboratory Results 04/16/20 18:06: WBC 2.8 L, RBC 3.51 L, Hgb 11.2 L, Hct 33.9 L, MCV 96.6, MCH 31.9, MCHC 33.0, RDW Std Deviation 47.6 H, RDW Coeff of Maximo 13.3, Plt Count 104 L, MPV 9.2, Immature Gran % (Auto) 0.000, Neut % (Auto) 30.2 L, Lymph % (Auto) 56.9 H, [place] % (Auto) 8.9, Eos % (Auto) 3.6, Baso % (Auto) 0.4, Absolute Neuts (auto) 0.9 L, Absolute Lymphs (auto) 1.60, Nucleated RBC % 0, Differential Comment SCANNED 04/16/20 18:06: Sodium 141, Potassium 3.6, Chloride 109 H, Carbon Dioxide 26.0, Anion Gap 6, BUN 8, Creatinine 0.85, Estim Creat Clear Calc 55.67, Est GFR (MDRD) Af Amer 88, Est GFR (MDRD) Non-Af 73, BUN/Creatinine Ratio 9.4 L, Glucose 152 H, Calcium 9.2, Troponin I < 0.015 04/16/20 18:06: D-Dimer Quant (PE/DVT) <= 0.27 Clinical Impression(s) from Imaging Studies Chest X-Ray 04/16/20 19:23 IMPRESSION: Normal x-ray examination of the chest. Electronically Signed: Georgina Camilo MD at 20:00 EDT Tel , Service support , Assessment/Plan All Active Problems (Last Reviewed 03/26/20 @ 12:45 by Letitia Solares) Chest pain (Acute) This is a 60 years old female patient presented to the emergency room because of chest pain and she is being admitted for evaluation. #1 atypical chest pain: Risk factors only her age. No history of diabetes, hypertension or smoking. No premature family history of CAD. Her pain is atypical. Chest x-ray showed no acute findings. EKG and troponin were unremarkable. It could be musculoskeletal pain versus GERD or gastritis. Plan: Admit to PCU for observation, cardiac monitoring, serial cardiac enzymes, will check LFT and lipase as she complains of epigastric pain, Tylenol as needed, Zofran as needed, nitro sublingual as needed, nuclear stress test tomorrow morning if cardiac enzymes are negative. #2 hyperglycemia: Without history of diabetes. Will check hemoglobin A1c. #3 mild pancytopenia: Probably due to Enbrel. Plan to monitor. #4 rheumatoid arthritis: Normally, she is on Enbrel q. weekly. Currently, she is stable. Plan to continue pain control. #5 GERD/gastritis: Continue Protonix, Mylanta as needed. #6 chronic pain syndrome: Secondary to her with arthritis, continue Percocet and Lyrica, Tylenol as needed. #7 anxiety: Continue Valium as needed. #8 DVT prophylaxis: SCDs, no chemical prophylaxis because of thrombocytopenia. This note was generated with [employer] software. It may contain incorrect words, spelling, and punctuation that were not noted in checking the note before signing. OBSV E&M: [id number] Initial observation care L3
[2020-04-16] MEDS: Aspirin 81 MG TAB.CHEW 324 MG PO (22:37)
[2020-04-16] MEDS: oxyCODONE 5 MG Tablet PO (23:29)
[2020-04-16] MEDS: Acetaminophen 325 MG Tablet 650 MG PO (23:29)
[2020-04-16 23:30] LABS: AST(SGOT) 72 U/L (15-37); Alanine Aminotransfer ALT/SGPT 36 U/L (13-56); Albumin, Serum 3.2 g/dL (3.2-5.0); Alkaline Phosphatase 94 U/L (45-117); Bilirubin, Direct 0.18 mg/dL (0.00-0.30); Globulin 4.2 g/dL (2.2-4.2); Lipase 287 U/L (73-393); Protein, Total 7.4 g/dL (6.4-8.2)
[2020-04-16] MEDS: diazePAM 5 MG Tablet PO (23:30)
[2020-04-16 23:36] LABS: Hemoglobin A1c 5.7 % (3.8-5.6)
--- NOTE | 2020-04-16 23:45 | EKG12_ITS ---
Test Reason : CP ADMIT Blood Pressure : / mmHG Vent. Rate : 079 BPM Atrial Rate : 079 BPM P-R Int : 126 ms QRS Dur : 084 ms QT Int : 388 ms P-R-T Axes : 000 008 039 degrees QTc Int : 444 ms Normal sinus rhythm Normal ECG Confirmed by ANTONIA MEJÍA, DAVID ([id number]), film editor supervisor JOELLEN HERNANDEZ ([id number]) on 04/20/2020 1:13:00 PM Referred By: Sissy Kamara Confirmed By:DAVID KNIGHT MD
[2020-04-17] VITALS (9 sets, daily range): BP systolic 107–125; BP diastolic 55–63; PULSE 75–85; RESP 16; TEMP 36.2–36.9; O2SAT 94–98
[2020-04-17] MEDS: Aspirin E.C. 81 MG Tablet PO (05:12)
[2020-04-17] MEDS: proMETHazine 25 MG Tablet PO (05:14)
--- NOTE | 2020-04-17 05:55 | EKG12_ITS ---
Test Reason : CP Blood Pressure : / mmHG Vent. Rate : 076 BPM Atrial Rate : 076 BPM P-R Int : 146 ms QRS Dur : 086 ms QT Int : 400 ms P-R-T Axes : 037 021 051 degrees QTc Int : 450 ms Normal sinus rhythm Normal ECG Confirmed by ANTONIA MEJÍA, DAVID ([id number]), department editor JOELLEN HERNANDEZ ([id number]) on 04/20/2020 1:05:35 PM Referred By: Sissy Kamara Confirmed By:DAVID KNIGHT MD
[2020-04-17 06:59] LABS: Absolute Lymphocyte Count 1.88 X10^3/uL (0.83-4.51); Absolute Neutrophil Count 0.8 X10^3/uL (2.0-7.7); Basophil# 0.01 X10^3/uL; Basophil% 0.3 % (0-1); Eosinophil# 0.12 X10^3/uL; Eosinophils% 3.9 % (0-5); Hemoglobin 10.3 g/dL (12.0-15.0); Lymphocyte # 1.88 X10^3/ul (4.0); Lymphocyte % 60.6 % (19-41); Mean Corp Hgb Conc 32.2 g/dL (32-36); Mean Corpuscular Hgb 32.3 pg (27.0-32.0); Mean Corpuscular Volume 100.3 fL (81-99); Monocyte# 0.34 X10^3/uL; NRBC Flagged by Analyzer 0 % (0-5); Neutrophil # 0.75 X10^3/uL (2.7-7.7); Neutrophil % 24.2 % (47-70); POSITIVE DIFFERENTIAL YES; Platelet Count 101 K/mm3 (150-450); RBC Distribution Width CV 13.3 % (11.6-14.6); RBC Distribution Width SD 49.1 fl (35.1-43.9); Red Blood Count 3.19 M/mm3 (4.2-5.4); White Blood Count 3.1 K/mm3 (4.4-11.0)
[2020-04-17 07:10] LABS: Differential Indicated SCAN CRITERIA MET
[2020-04-17 07:19] LABS: Anion Gap 5 (5-15); BUN 13 mg/dL (7-18); BUN/Creat Ratio 15.8 RATIO (10-20); Calcium,Total 8.8 mg/dL (8.5-10.1); Chloride 111 mmol/L (98-107); Cholesterol 217 mg/dL (200); Creatinine, Serum 0.82 mg/dL (0.55-1.02); EST Glomerular Filtration Rate 75 mL/min (>60); Est Glom Filt Rate - Afr Amer 91 mL/min (>60); Glucose 96 mg/dL (74-106); High Density Lipoprotein 33 mg/dL; Potassium 3.8 mmol/L (3.5-5.1); Sodium Level 141 mmol/L (136-145); Triglycerides 255 mg/dL; Very Low Density Lipoprotein 51 mg/dL (5-40)
[2020-04-17 07:25] LABS: Differential Comment SCANNED
[2020-04-17] MEDS: oxyCODONE 5 MG Tablet PO (08:04)
--- NOTE | 2020-04-17 08:23 | EKG12_ITS ---
Test Reason : CP Blood Pressure : / mmHG Vent. Rate : 077 BPM Atrial Rate : 077 BPM P-R Int : 148 ms QRS Dur : 084 ms QT Int : 392 ms P-R-T Axes : 045 018 048 degrees QTc Int : 443 ms Normal sinus rhythm Normal ECG Confirmed by ANTONIA MEJÍA, DAVID ([id number]), avid editor JOELLEN HERNANDEZ ([id number]) on 04/20/2020 1:10:50 PM Referred By: Sissy Kamara Confirmed By:DAVID KNIGHT MD
--- NOTE | 2020-04-17 08:47 | NURSING ---
at 0800 pt was medicated for headache and back pain, at this time pt denies chest pain but described some soreness. discussed with pt tylenol vs oxycodone and explained that oxycodone doesn't typically help headaches and could cause nausea, but pt requested oxycodone instead of tylenol. assessment completed at this time and vital signs stabel. at 0815, this RN returned to room to update pt about stress test time and pt updated RN that she was having chest pain rating 7/10 described as pressure. c/o slight nausea but denies dizziness, pt is not diaphoretic but does appear anxious on examination. EKG ordered and vitals taken. Dr Henry updated and cardiac lab specialist notified. they requested that we do not give nitro and if pt is stable to bring down for scheduled stress test. Dr Henry aware of all and agrees to continue plan of care.
--- NOTE | 2020-04-17 11:00 | STRESSREP_ITS ---
Stress Test Report Date: 04-17-2020 Procedure: Pharmacologic stress nuclear imaging study Indications: Chest pain Consent: Per the patient Procedure: The patient underwent pharmacologic (Regadenoson) evaluation with a peak heart rate of 106 beats per minute (66%predicted maximal heart rate) and a peak blood pressure of 132/70 mmHg. The baseline ECG demonstrated normal sinus rhythm. The peak pharmacologic ECG demonstrated no obvious ECG changes. There were no cardiac dysrhythmias pretest, during pharmacologic infusion, or recovery. There was notation of chronic chest discomfort pretest, during pharmacologic infusion, and during recovery. The examination was discontinued secondary to completion of protocol. Impression: 1. Pharmacologic (Regadenoson) evaluation 2. Peak pharmacologic ECG with with no obvious ECG changes. 3. There were no cardiac dysrhythmias pretest, during pharmacologic infusion, or recovery. 4. Nuclear images pending Myocardial perfusion imaging study: Technique: The patient was injected with 12.0 millicuries of technetium 99m Cardiolite and subsequently rest SPECT Cardiolite nuclear imaging was obtained in the horizontal long, vertical long, and short axis views. The patient underwent pharmacologic (Regadenoson) evaluation with a peak heart rate of 106 beats per minute (66% percent predicted maximal heart rate) and a peak blood pressure of 132/70 mmHg. The patient was injected with 35.0 millicuries of technetium 99m Cardiolite and subsequently stress SPECT Cardiolite nuclear imaging was obtained in the horizontal long, vertical long, and short axis views. A gated Cardiolite study at peak stress was obtained. Interpretation: Rest and stress SPECT Cardiolite nuclear imaging status post realignment, normalization, and attenuation correction demonstrate relative uniform tracer uptake and myocardial perfusion appearing within normal limits. There is end systolic thickening and brightening. The gated Cardiolite study demonstrates myocardial thickening and inward wall motion. The reported LVEF is 96%. Impression: 1. Rest and stress SPECT Cardiolite nuclear imaging demonstrate relative uniform tracer uptake and myocardial perfusion appearing within normal limits. 2. The gated Cardiolite study reports an LVEF of 96%. This note was generated with [employer] software. It may contain incorrect words, spelling, and punctuation that were not noted in checking the note before signing.
--- NOTE | 2020-04-17 11:25 | DCINST_ITS ---
- Discharge Diagnoses Current Active Problems: Current Active and Chronic Problems (Last Reviewed 03/26/20 @ 12:45 by Letitia Solares) Chest pain (Acute) Chronic pain syndrome (Chronic) Rheumatoid arthritis (Chronic) Anxiety (Chronic) Gastritis (Chronic) You will use the following diet at home:: Calorie/Carbohydrate Controlled (specify 1200, 1400, etc), Cardiac Discharge Activity: Return to Normal Activity Call your doctor if you observe: Shortness of breath, Dizziness, Fainting spells, Chest pain Allergies/Adverse Reactions: Allergies adhesive tape Allergy (Verified 04/16/20 18:21) Rash alprazolam [From Xanax] Allergy (Verified 04/16/20 18:21) Unknown cyclobenzaprine HCl [From Flexeril] Allergy (Verified 04/16/20 18:21) Unknown diphenhydramine HCl [From Benadryl] Allergy (Verified 04/16/20 18:21) Unknown ibuprofen Allergy (Verified 04/16/20 18:21) Nausea Iodinated Contrast Media [DYEE] Allergy (Verified 04/16/20 18:21) Other panic attack prochlorperazine edisylate [From Compazine] Allergy (Verified 04/16/20 18:21) Unknown prochlorperazine maleate [From Compazine] Allergy (Verified 04/16/20 18:21) Unknown red dye Allergy (Verified 04/16/20 18:21) Nausea acetaminophen [From Tylenol] Adverse Reaction (Verified 04/16/20 18:21) Other ondansetron [From Zofran (as hydrochloride)] Adverse Reaction (Verified 04/16/20 18:21) Nausea/Vom/Diarrhea Medications to take at Discharge Diazepam [Valium] 5 mg PO TID PRN 02/20/17 Etanercept [Enbrel] 50 mg SQ Q7D 08/04/17 Pantoprazole Sodium [Protonix] 40 mg PO DAILY PRN 11/18/17 Oxycodone HCl/Acetaminophen [Percocet 5-325] 1 tab PO BID PRN PRN 12/21/18 Pregabalin [Lyrica] 50 mg PO BID 12/21/18 Galcanezumab-Gnlm [Emgality Pen] 120 mg SQ QMONTH PRN 06/19/19 proMETHazine tablet [Phenergan tablet] 25 mg PO Q4H PRN PRN 04/16/20 Atorvastatin Calcium [Lipitor] 40 mg PO QHS #30 tab 04/17/20 The following prescriptions were given: Atorvastatin Calcium [Lipitor] 40 mg PO QHS #30 tab Transmission Status: Pending to [facility] Primary Care Physician: Benson cMkeon DO [Primary Care Provider] - Please follow up with your Primary Care Physician in: 1 Week Test Results: Test results from this visit will be discussed in further detail at your follow- up appointment, if applicable. Proposed Discharge Date: 04/17/20
--- NOTE | 2020-04-17 11:29 | DS.PCM_ITS ---
<Atiya Garcia ART INSTALLER - Last Filed: 04/17/20 11:40> Discharge Date and Diagnosis - Problem List Patient Problems: Active and Suspected Problems (Last Reviewed 03/26/20 @ 12:45 by Letitia Solares) Chest pain (Acute) Date of Admission: 04/16/20 Date of Discharge: 04/17/20 - Primary Discharge Diagnosis Acute Problems: Active Problems (Last Reviewed 03/26/20 @ 12:45 by Letitia Solares) 1. Musculoskeletal chest pain, ACS ruled out 2. Prediabetes 3. Mild pancytopenia, suspect secondary to Enbrel 4. Rheumatoid arthritis 5. GERD 6. Chronic pain syndrome 7. Anxiety 8. Hyperlipidemia 9. Chronic migraines - Secondary Discharge Diagnosis Chronic Problems: Chronic Problems (Last Reviewed 03/26/20 @ 12:45 by Letitia Solares) Chronic pain syndrome (Chronic) Rheumatoid arthritis (Chronic) Anxiety (Chronic) Gastritis (Chronic) Hospital Course and Treatment Imaging Results: Diagnostic Data Chest X-Ray 04/16/20 19:23 IMPRESSION: Normal x-ray examination of the chest. Electronically Signed: Georgina Camilo MD at 20:00 EDT Tel , Service support , Operations: None Procedures: Stress test Summary of Care Provided: The patient is a 60 year old F admitted 04/16/2020 due to chest pain. 1. Musculoskeletal chest pain, ACS ruled out-troponin negative. EKG without ST-T changes. Patient underwent nuclear stress test which was negative for ischemia. LVEF 96%. Patient reports intermittent chest pain for the past few years. She was concerned for underlying heart disease due to her mother and grandmother having heart disease. Patient has chronic pain syndrome and rheumatoid arthritis. Continue as needed pain regimen. Continue outpatient follow-up with PCP. 2. Prediabetes-hemoglobin A1c 5.7%. Discussed with patient dietary modifications. Follow A1c as outpatient. 3. Mild pancytopenia, suspect secondary to Enbrel-follow labs as outpatient. 4. Rheumatoid arthritis-on Enbrel. 5. GERD-continue PPI. 6. Chronic pain syndrome-on Percocet, Lyrica, Valium. 7. Anxiety-on as needed diazepam. 8. Hyperlipidemia- added on statin. Recommended repeat lipid profile in 6 weeks. 9. Chronic migraines-on Emgality. Patient seen and examined prior to discharge. Physical assessment as noted below. Patient is stable for discharge with follow up recommendations as noted above. This patient was seen by MONTRELL Phillips under the supervision of Dr. Henry. Patient Problems: Active and Suspected Problems (Last Reviewed 03/26/20 @ 12:45 by Letitia Solares) Chest pain (Acute) - Physical Exam Vitals/I&O's: Vital Signs Temp Pulse Resp BP Pulse Ox 98.5 F 80 16 125/58 H 94 04/17/20 10:55 04/17/20 10:55 04/17/20 10:55 04/17/20 10:55 04/17/20 10:55 Oxygen Flow Rate (L/min) 2 Oxygen Delivery Method Room Air Weight: 154 lb 5.177 oz Body Mass Index (BMI) 28.2 Intake and Output for Last 24 Hours 04/15/20 04/16/20 04/17/20 23:59 23:59 23:59 Intake Total 980 / 980 0 / 0 Balance 980 / 980 0 / 0 General: Alert, Oriented x3, Cooperative HEENT: Atraumatic, PERRLA, EOMI, Normocephalic Neck: Supple, No JVD, Negative Carotid Bruits Lungs: Clear to auscultation, Normal air movement Cardiovascular: Regular rate, No murmurs Abdomen: Bowel Sounds Present, Soft, Non Tender, Non-Distended Extremities: No clubbing, No cyanosis, No edema, Capillary Refill Less than 3 Seconds Skin: No rashes, No breakdown Musculoskeletal: No Tenderness to Palpation of Joints or Extremities Neurological: Cranial nerves II-XII grossly intact, Neuro grossly intact Psych/Mental Status: Normal Affect, Appropriate Laboratory Results 04/16/20 18:06: WBC 2.8 L, RBC 3.51 L, Hgb 11.2 L, Hct 33.9 L, MCV 96.6, MCH 31.9, MCHC 33.0, RDW Std Deviation 47.6 H, RDW Coeff of Maximo 13.3, Plt Count 104 L, MPV 9.2, Immature Gran % (Auto) 0.000, Neut % (Auto) 30.2 L, Lymph % (Auto) 56.9 H, Door % (Auto) 8.9, Eos % (Auto) 3.6, Baso % (Auto) 0.4, Absolute Neuts (auto) 0.9 L, Absolute Lymphs (auto) 1.60, Nucleated RBC % 0, Differential Comment SCANNED 04/16/20 18:06: Sodium 141, Potassium 3.6, Chloride 109 H, Carbon Dioxide 26.0, Anion Gap 6, BUN 8, Creatinine 0.85, Estim Creat Clear Calc 55.67, Est GFR (MDRD) Af Amer 88, Est GFR (MDRD) Non-Af 73, BUN/Creatinine Ratio 9.4 L, Glucose 152 H, Calcium 9.2, Troponin I < 0.015 04/16/20 18:06: D-Dimer Quant (PE/DVT) <= 0.27 04/16/20 18:06: Total Bilirubin 0.40, Direct Bilirubin 0.18, AST 72 H, ALT 36, Alkaline Phosphatase 94, Troponin I Cancelled, Total Protein 7.4, Albumin 3.2, Globulin 4.2, Lipase 287 04/16/20 18:06: Hemoglobin A1c 5.7 H 04/16/20 23:25: Troponin I < 0.015 04/17/20 02:20: Troponin I < 0.015 04/17/20 05:40: WBC 3.1 L, RBC 3.19 L, Hgb 10.3 L, Hct 32.0 L, MCV 100.3 H, MCH 32.3 H, MCHC 32.2, RDW Std Deviation 49.1 H, RDW Coeff of Maximo 13.3, Plt Count 101 L, MPV 9.0, Immature Gran % (Auto) 0.000, Neut % (Auto) 24.2 L, Lymph % (Auto) 60.6 H, Door % (Auto) 11.0 H, Eos % (Auto) 3.9, Baso % (Auto) 0.3, Absolute Neuts (auto) 0.8 L, Absolute Lymphs (auto) 1.88, Nucleated RBC % 0, Differential Comment SCANNED 04/17/20 05:40: Sodium 141, Potassium 3.8, Chloride 111 H, Carbon Dioxide 25.0, Anion Gap 5, BUN 13, Creatinine 0.82, Estim Creat Clear Calc 57.70, Est GFR (MDRD) Af Amer 91, Est GFR (MDRD) Non-Af 75, BUN/Creatinine Ratio 15.8, Glucose 96, Calcium 8.8, Triglycerides 255 H, Cholesterol 217 H, LDL Cholesterol 133 H, VLDL Cholesterol 51 H, HDL Cholesterol 33 L 04/17/20 05:40: Troponin I < 0.015 Current Medications Acetaminophen (Acetaminophen 325 Mg Tablet) 650 mg PO Q6H PRN PRN PRN Reason: Pain Score 1-10/Temp > 100.7 F Last Admin: 04/16/20 23:29 Dose: 650 mg Documented by: Al Hydroxide/Mg Hydroxide (Mag Hydrox/Al Hydrox/Simeth 30 Ml Udc) 30 ml PO Q6H PRN PRN PRN Reason: Heartburn, indigestion Aspirin (Aspirin E.C. 81 Mg Tablet) 81 mg PO DAILY@0800 BRITANY Last Admin: 04/17/20 05:12 Dose: 81 mg Documented by: Diazepam (Diazepam 5 Mg Tablet) 5 mg PO TID PRN PRN PRN Reason: ANXIETY Last Admin: 04/16/20 23:30 Dose: 5 mg Documented by: Ketorolac Tromethamine (Ketorolac 15 Mg/Ml Vial) 15 mg IV X1 ONE Stop: 04/17/20 11:21 Nitroglycerin (Nitroglycerin (Inpatient Use) 0.4 Mg Tab.Subl) 0.4 mg SUBLINGUAL Q5M PRN PRN Reason: CARDIAC/CHEST PAIN Ondansetron HCl (Ondansetron 4 Mg/2 Ml Vial) 4 mg IV Q8H PRN PRN PRN Reason: NAUSEA/VOMITING Oxycodone HCl (Oxycodone 5 Mg Tablet) 5 mg PO BID PRN PRN PRN Reason: Pain Score 6-10 Last Admin: 04/17/20 08:04 Dose: 5 mg Documented by: Pantoprazole Sodium (Pantoprazole Sodium 40 Mg Tablet) 40 mg PO DAILY PRN PRN PRN Reason: gerd Pregabalin (Pregabalin 50 Mg Capsule) 50 mg PO BID [facility] Promethazine HCl (Promethazine 25 Mg Tablet) 25 mg PO Q4H PRN PRN PRN Reason: NAUSEA Last Admin: 04/17/20 05:14 Dose: 25 mg Documented by: Sodium Chloride (0.9% Saline Lock 10 Ml Syringe) 10 - 40 ml IV UD PRN PRN Reason: SALINE FLUSH Zolpidem Tartrate (Zolpidem Tartrate 5 Mg Tablet) 5 mg PO QHS PRN PRN PRN Reason: INSOMNIA Discharge Diet: Low fat/ Low Cholesterol, Carb Control Diet Discharge Activity: Return to Normal Activity Call your doctor if you observe: Shortness of breath, Dizziness, Fainting spells, Chest pain Home Medications: Medications to take at Discharge Diazepam [Valium] 5 mg PO TID PRN 02/20/17 Etanercept [Enbrel] 50 mg SQ Q7D 08/04/17 Pantoprazole Sodium [Protonix] 40 mg PO DAILY PRN 11/18/17 Oxycodone HCl/Acetaminophen [Percocet 5-325] 1 tab PO BID PRN PRN 12/21/18 Pregabalin [Lyrica] 50 mg PO BID 12/21/18 Galcanezumab-Gnlm [Emgality Pen] 120 mg SQ QMONTH PRN 06/19/19 proMETHazine tablet [Phenergan tablet] 25 mg PO Q4H PRN PRN 04/16/20 Atorvastatin Calcium [Lipitor] 40 mg PO QHS #30 tab 04/17/20 Following Prescriptions Were Given to Patient: Atorvastatin Calcium [Lipitor] 40 mg PO QHS #30 tab Transmission Status: Received by [id number] Primary Care Physician: Benson Mckeon DO [Primary Care Provider] - Please follow up with your Primary Care Physician in: 1 Week Disposition: Home Minutes spent on discharge:: 35 Patient Condition:: Stable Medical Necessity - Tobacco Use Smoking Status: Never smoker Meaningful Use Info Meaningful Use Diagnoses (Choose all that apply): None applicable <Thierry Henry - Last Filed: 04/17/20 15:00> Discharge Date and Diagnosis - Primary Discharge Diagnosis Acute Problems: Active Problems (Last Reviewed 03/26/20 @ 12:45 by Letitia Solares) Chest pain (Acute) - Secondary Discharge Diagnosis Chronic Problems: Chronic Problems (Last Reviewed 03/26/20 @ 12:45 by Letitia Solares) Chronic pain syndrome (Chronic) Rheumatoid arthritis (Chronic) Anxiety (Chronic) Gastritis (Chronic) Hospital Course and Treatment Summary of Care Provided: This patient was seen in conjunction with ART INSTALLERAtiya. I have independently interviewed and examined the patient and reviewed pertinent history, examination findings, laboratory and plan of management. I have reviewed the note and agr ee with the documented findings with the few additional points. In brief, patient is a 60 year old F admitted with musculoskeletal chest pain with radiation to left arm and back. Patient denies any shortness of breath. She states he has history of rheumatoid arthritis on Enbrel and follows [place] [facility] specialist. Serial troponin enzymes were negative. Patient had nuclear stress test was negative for acute ischemia, EF 96%. Patient also has chronic migraine and she is on Emgality pain, Valium, Phenergan, and Lyrica. Seems she has chronic pain syndrome developed over the years. Other comorbidities as mentioned above Discharge medication reconciliation done. Discharge follow-up instructions completed. Discharge process discussed with the patient and all questions were answered to patient's satisfaction. Total time spent, exact 35 minutes on discharge meds reconciliation, examination, coordination of care with nurses and ancillary staff, review of imaging and blood test and discussion with the patient on follow-up instructions I have discussed my assessment with ART INSTALLERAtiya and orders have been reviewed. [] Objective: Seen and examined. Patient heart rate and blood pressure are controlled. No hypoxia. Physical exam General: Alert, Oriented x3, Cooperative HEENT: Atraumatic, PERRLA, EOMI, Normocephalic Oral: No Gingival or Mucosal Lesions/ Ulcerations Neck: Supple, No JVD, Negative Carotid Bruits Lungs: Air entry diminished in bilateral lung bases. No crepitation/rhonchi Cardiovascular: Sinus rhythm. Regular rate, Regular Rhythm, Normal S1, Normal S2, No murmurs Abdomen: Bowel Sounds Present, Soft, Non Tender, Non-Distended : No renal angle tenderness. No suprapubic tenderness. Extremities: Mild bilateral ankle edema, Capillary Refill Less than 3 Seconds Skin: No rashes, No breakdown Musculoskeletal: Mild tenderness over MCP and PIP joints. No palpable synovial hypertrophy. Mild tenderness over costal cartilages. Neurological: Cranial nerves II-XII grossly intact, Deep Tendon Reflexes 2+/4 and Symmetrical, Neuro grossly intact Psych/Mental Status: Normal Affect, Appropriate. - Physical Exam Vitals/I&O's: Vital Signs Temp Pulse Resp BP Pulse Ox 98.5 F 80 16 125/58 H 94 04/17/20 10:55 04/17/20 10:55 04/17/20 10:55 04/17/20 10:55 04/17/20 10:55 Oxygen Flow Rate (L/min) 2 Oxygen Delivery Method Room Air Weight: 154 lb 5.177 oz Body Mass Index (BMI) 28.2 Intake and Output for Last 24 Hours 04/15/20 04/16/20 04/17/20 23:59 23:59 23:59 Intake Total 980 / 980 0 / 0 Balance 980 / 980 0 / 0 Laboratory Results 04/16/20 18:06: WBC 2.8 L, RBC 3.51 L, Hgb 11.2 L, Hct 33.9 L, MCV 96.6, MCH 31.9, MCHC 33.0, RDW Std Deviation 47.6 H, RDW Coeff of Maximo 13.3, Plt Count 104 L, MPV 9.2, Immature Gran % (Auto) 0.000, Neut % (Auto) 30.2 L, Lymph % (Auto) 56.9 H, Door % (Auto) 8.9, Eos % (Auto) 3.6, Baso % (Auto) 0.4, Absolute Neuts (auto) 0.9 L, Absolute Lymphs (auto) 1.60, Nucleated RBC % 0, Differential Comment SCANNED 04/16/20 18:06: Sodium 141, Potassium 3.6, Chloride 109 H, Carbon Dioxide 26.0, Anion Gap 6, BUN 8, Creatinine 0.85, Estim Creat Clear Calc 55.67, Est GFR (MDRD) Af Amer 88, Est GFR (MDRD) Non-Af 73, BUN/Creatinine Ratio 9.4 L, Glucose 152 H, Calcium 9.2, Troponin I < 0.015 04/16/20 18:06: D-Dimer Quant (PE/DVT) <= 0.27 04/16/20 18:06: Total Bilirubin 0.40, Direct Bilirubin 0.18, AST 72 H, ALT 36, Alkaline Phosphatase 94, Troponin I Cancelled, Total Protein 7.4, Albumin 3.2, Globulin 4.2, Lipase 287 04/16/20 18:06: Hemoglobin A1c 5.7 H 04/16/20 23:25: Troponin I < 0.015 04/17/20 02:20: Troponin I < 0.015 04/17/20 05:40: WBC 3.1 L, RBC 3.19 L, Hgb 10.3 L, Hct 32.0 L, MCV 100.3 H, MCH 32.3 H, MCHC 32.2, RDW Std Deviation 49.1 H, RDW Coeff of Maximo 13.3, Plt Count 101 L, MPV 9.0, Immature Gran % (Auto) 0.000, Neut % (Auto) 24.2 L, Lymph % (Auto) 60.6 H, Door % (Auto) 11.0 H, Eos % (Auto) 3.9, Baso % (Auto) 0.3, Absolute Neuts (auto) 0.8 L, Absolute Lymphs (auto) 1.88, Nucleated RBC % 0, Differential Comment SCANNED 04/17/20 05:40: Sodium 141, Potassium 3.8, Chloride 111 H, Carbon Dioxide 25.0, Anion Gap 5, BUN 13, Creatinine 0.82, Estim Creat Clear Calc 57.70, Est GFR (MDRD) Af Amer 91, Est GFR (MDRD) Non-Af 75, BUN/Creatinine Ratio 15.8, Glucose 96, Calcium 8.8, Triglycerides 255 H, Cholesterol 217 H, LDL Cholesterol 133 H, VLDL Cholesterol 51 H, HDL Cholesterol 33 L 04/17/20 05:40: Troponin I < 0.015 Current Medications Acetaminophen (Acetaminophen 325 Mg Tablet) 650 mg PO Q6H PRN PRN PRN Reason: Pain Score 1-10/Temp > 100.7 F Last Admin: 04/16/20 23:29 Dose: 650 mg Documented by: Al Hydroxide/Mg Hydroxide (Mag Hydrox/Al Hydrox/Simeth 30 Ml Udc) 30 ml PO Q6H PRN PRN PRN Reason: Heartburn, indigestion Aspirin (Aspirin E.C. 81 Mg Tablet) 81 mg PO DAILY@0800 [facility] Last Admin: 04/17/20 05:12 Dose: 81 mg Documented by: Diazepam (Diazepam 5 Mg Tablet) 5 mg PO TID PRN PRN PRN Reason: ANXIETY Last Admin: 04/16/20 23:30 Dose: 5 mg Documented by: Nitroglycerin (Nitroglycerin (Inpatient Use) 0.4 Mg Tab.Subl) 0.4 mg SUBLINGUAL Q5M PRN PRN Reason: CARDIAC/CHEST PAIN Ondansetron HCl (Ondansetron 4 Mg/2 Ml Vial) 4 mg IV Q8H PRN PRN PRN Reason: NAUSEA/VOMITING Oxycodone HCl (Oxycodone 5 Mg Tablet) 5 mg PO BID PRN PRN PRN Reason: Pain Score 6-10 Last Admin: 04/17/20 08:04 Dose: 5 mg Documented by: Pantoprazole Sodium (Pantoprazole Sodium 40 Mg Tablet) 40 mg PO DAILY PRN PRN PRN Reason: gerd Pregabalin (Pregabalin 50 Mg Capsule) 50 mg PO BID [facility] Last Admin: 04/17/20 11:38 Dose: 50 mg Documented by: Promethazine HCl (Promethazine 25 Mg Tablet) 25 mg PO Q4H PRN PRN PRN Reason: NAUSEA Last Admin: 04/17/20 05:14 Dose: 25 mg Documented by: Sodium Chloride (0.9% Saline Lock 10 Ml Syringe) 10 - 40 ml IV UD PRN PRN Reason: SALINE FLUSH Last Admin: 04/17/20 11:39 Dose: 10 ml Documented by: Zolpidem Tartrate (Zolpidem Tartrate 5 Mg Tablet) 5 mg PO QHS PRN PRN PRN Reason: INSOMNIA OBSV E&M: 49626 Observation care discharge
[2020-04-17] MEDS: Pregabalin 50 MG Capsule PO (11:38)
[2020-04-17] MEDS: Ketorolac 15 MG/ML Vial IV (11:39)
[2020-04-17] MEDS: 0.9% Saline Lock 10 ML Syringe IV (11:39)
[2020-04-17] MEDS: SUMAtriptan 6 MG/0.5 ML Vial SC (14:53)
--- NOTE | 2020-04-17 14:54 | PHA.DC.MC ---
Pharmacy Service has performed discharge medication reconciliation and counseling for this patient. 1. ATORVASTATIN 40MG PO QHS The patient's discharge medication list was reviewed for discrepancies and discrepancies were resolved. Home Medications Diazepam [Valium] 5 mg PO TID PRN 02/20/17 Etanercept [Enbrel] 50 mg SQ Q7D 08/04/17 Pantoprazole Sodium [Protonix] 40 mg PO DAILY PRN 11/18/17 Oxycodone HCl/Acetaminophen [Percocet 5-325] 1 tab PO BID PRN PRN 12/21/18 Pregabalin [Lyrica] 50 mg PO BID 12/21/18 Galcanezumab-Gnlm [Emgality Pen] 120 mg SQ QMONTH PRN 06/19/19 proMETHazine tablet [Phenergan tablet] 25 mg PO Q4H PRN PRN 04/16/20 Atorvastatin Calcium [Lipitor] 40 mg PO QHS #30 tab 04/17/20 The patient was counseled on the following discharge medications and changes in medications for homegoing were reviewed. The Reason for Use, instructions for use, and potential side effects were reviewed for all new medications. The patient's questions regarding all of their medications were answered. The patient was able to verbally demonstrate an understanding of their discharge medications.
== END 2020-04-17 11:27 | disposition home or self-care (01) ==
LOC: ED 19:59 → PCU 22:26
PROVIDERS: Admitting Provider Hospitalist; Emergency Provider Student in an Organized Health Care Education/Training Program; PCP Preventive Medicine Occupational Medicine; Referring Provider Hospitalist; Visit Provider Internal Medicine
DX: R07.89 Other chest pain (principal); R73.03 Prediabetes; M06.9 Rheumatoid arthritis, unspecified; K21.9 Gastro-esophageal reflux disease without esophagitis; D61.818 Other pancytopenia; E78.5 Hyperlipidemia, unspecified; G89.4 Chronic pain syndrome; F41.9 Anxiety disorder, unspecified; G43.909 Migraine, unspecified, not intractable, without status migrainosus; Z79.899 Other long term (current) drug therapy; Z87.19 Personal history of other diseases of the digestive system; R11.0 Nausea; R94.31 Abnormal electrocardiogram [ECG] [EKG]
CPT/HCPCS: 36415; 71045; 78452; 80048; 80061; 80076; 83036; 83690; 84484; 85025; 85379; 93005; 93017; 96361; 96372; 96374; 96375; 96376; 99218; 99285; A9500; J7040; A4216; G0378; J2785; J3030

== ENCOUNTER 2020-07-19 19:07 | Emergency (ER) | payer OTHER, SELFPAY ==
[2020-04-16 22:50] VITALS: BMI 28.2
[2020-07-19 19:07] VITALS: BP 141/86; PULSE 80; RESP 17; TEMP 36.2; O2SAT 98; BMI 26.6
[2020-07-19] MEDS: Ketorolac 30 MG/ML Syringe IV (19:42)
[2020-07-19] MEDS: 0.9% Normal Saline 1,000 ML 999 ML IV (19:42)
[2020-07-19] MEDS: Metoclopramide 10 MG/2 ML Vial 5 MG IV (19:42)
[2020-07-19] MEDS: proMETHazine 25 MG Tablet PO (19:42)
--- NOTE | 2020-07-19 19:50 | ED.DCSUM_ITS ---
- ER Visit Summary Date of Service: 07/19/20 Chief Complaint: Headache History of Present Illness: The patient is a 60 F presenting with headache. Headache was gradual in onset and started today. She has a history of migraine headaches which have felt similar in the past. She tried Percocet and Valium at home for her headache today with no improvement. She denies fever. She has history of rheumatoid arthritis. She denies other complaints. Physical Examination: Vitals are stable. Patient is afebrile. Alert no acute distress. HEENT exam is unremarkable. Neck is supple. No meningismus Lungs are clear and equal bilaterally. Heart is regular rate and rhythm. Abdomen is soft nontender nondistended. Extremities are unremarkable. Skin is warm and dry. No focal neurologic deficit. Remainder of exam is unremarkable. Emergency Department Course and Treatment: Patient has multiple allergies. She states she typically gets the cocktail. On review of records she has received Reglan and Toradol in the past with improvement. She was advised we no longer give Phenergan IV. She was given Reglan, Toradol, IV fluids, and p.o. Phenergan. On reevaluation, patient feels much improved and is requesting discharge home. She will follow-up with her doctors. She is advised to return to the ED for worsening complaints. Disposition: Discharge home Impression: Headache This note was generated with [employer] dictation software. It may contain incorrect words, spelling, and punctuation that were not noted in review of the chart prior to signing ED Disposition - Plan for ED Patient: Referrals: Benson Mckeon DO [Primary Care Provider] -
--- NOTE | 2020-07-19 20:22 | ED.DEP ---
ED Disposition - Plan for ED Patient: Instructions: ED Headache Unspecified Referrals: Benson Mckeon DO [Primary Care Provider] -
--- NOTE | 2020-07-19 20:39 | ED.RN ---
pt reported IV site painful after 500 ml infused. infusion stopped. pt up to void. notified and okay with receiving 500 ml.
== END 2020-07-19 20:42 | disposition home or self-care (01) ==
LOC: ED 20:05
PROVIDERS: Emergency Provider Emergency Medicine; PCP Preventive Medicine Occupational Medicine
DX: R51.9 Headache, unspecified (principal); M06.9 Rheumatoid arthritis, unspecified
CPT/HCPCS: 96361; 96374; 96375; 99284; J7030; A4216

== ENCOUNTER 2020-10-30 01:40 | Emergency (ER) | payer OTHER, SELFPAY ==
[2020-10-30 01:41] VITALS: PULSE 83; RESP 18; TEMP 35.8; O2SAT 96; BMI 26.5
--- NOTE | 2020-10-30 02:15 | EX.ED.DYSGE1 ---
HPI History of Present Illness Chief Complaint: Other, Pain/Inj Narrative Narrative: This patient is a 60-year-old female who presents with myalgias and arthralgias. She has a history of autoimmune disease rheumatoid arthritis with chronic joint pain. She had adverse events with methotrexate and Enbrel with elevation of liver enzymes and thrombocytopenia. She is currently on oxycodone but states for the last week or so her pain is been poorly controlled. She takes 1 Percocet 5 mg / 325 mg every 6 hours. She otherwise denies recent illness such as fevers vomiting diarrhea abdominal pain. [facility] Medical History (Updated 10/30/20 @ 02:[address] Glenn Campbell MD) Arthritis Cirrhosis of liver Home Medications diazepam 5 mg PO TID PRN 02/20/17 [History Last Taken 12/20/17] pantoprazole 40 mg PO DAILY PRN 11/18/17 [History Last Taken 12/20/17] oxycodone-acetaminophen 1 tab PO BID PRN PRN 12/21/18 [History Last Taken Unknown] pregabalin 50 mg PO BID 12/21/18 [History Last Taken Unknown] promethazine 25 mg PO Q4H PRN PRN 04/16/20 [History Last Taken Unknown] ergocalciferol (vitamin D2) [Vitamin D2] 10/30/20 [History Last Taken Unknown] oxycodone 5 mg PO Q6H PRN 3 Days #12 cap 10/30/20 [Rx Last Taken Unknown] Allergy/AdvReac Type Severity Reaction Status Date / Time adhesive tape Allergy Rash Verified 10/30/20 01:46 alprazolam [From Xanax] Allergy Unknown Verified 10/30/20 01:46 cyclobenzaprine HCl Allergy Unknown Verified 10/30/20 01:46 [From Flexeril] ibuprofen Allergy Nausea Verified 10/30/20 01:46 Iodinated Contrast Media Allergy Other Verified 10/30/20 01:46 [DYEE] prochlorperazine edisylate Allergy Unknown Verified 10/30/20 01:46 [From Compazine] prochlorperazine maleate Allergy Unknown Verified 10/30/20 01:46 [From Compazine] red dye Allergy Nausea Verified 10/30/20 01:46 acetaminophen [From Tylenol] AdvReac Other Verified 10/30/20 01:46 ondansetron AdvReac Nausea/Vom/ Verified 10/30/20 01:46 [From Zofran (as Diarrhea hydrochloride)] Social History (Updated 03/26/20 @ 13:27 by Justen FRAGOSO, PA) Smoking Status: Never smoker ROS ROS ED Constitutional Constitutional ED: Denies fever(s) Cardiovascular Cardiovascular: Reports chest pain and other Details: Chronic chest pain Respiratory/Chest Respiratory/Chest: Denies dyspnea Gastrointestinal Gastrointestinal: Denies abdominal pain Musculoskeletal Musculoskeletal: Reports arthralgias, back pain and myalgias Integumentary Denies rash Neurologic Neurologic: Denies headache(s) EXAM Physical Exam Const Vital Signs: 10/30/20 01:41 10/30/20 01:43 Temperature 96.4 F L Temperature Source Temporal Pulse Rate 83 Respiratory Rate 18 Respiratory Effort Normal Respiratory Pattern Normal Pulse Ox 96 Oxygen Delivery Method Room Air Positive well nourished HEENT Reports moist mucous membranes Eyes EOMs intact bilaterally Neck supple Resp clear to auscultation bilaterally Cardio regular rate and regular rhythm GI non-tender and non-distended Palpation: soft Extremity normal to inspection Neuro Sensorium / Orientation: alert Psych Mood & Affect: tearful Skin no rashes or lesions noted MDM MDM MDM Narrative Medical decision making narrative: This is an exacerbation of chronic pain. She has been being followed as an outpatient. I do not believe any emergent diagnostic evaluation is necessary. She is limited on medication options. She reports adverse reactions to prednisone. She already takes Percocet. I will provide a short course of OxyContin for breakthrough pain. She was advised to contact her primary care provider for close outpatient follow-up. She was given a dose of oxycodone and Phenergan here. Patient discharged. Discharge Plan Triage Chief Complaint: Other, Pain/Inj ED Provider: Glenn Campbell Dx/Rx/DC Orders Clinical Impression: Myalgia, Arthralgia Instructions: ED Arthralgia, ED Myalgias Prescriptions: New oxycodone 5 mg capsule 5 mg PO Q6H PRN (Reason: pain) 3 Days Qty: 12 RF: 0 No Action diazepam 5 MG tablet 5 mg PO TID PRN (Reason: Anxiety) RF: 0 pantoprazole 40 MG tablet 40 mg PO DAILY PRN (Reason: gerd) RF: 0 oxycodone-acetaminophen 1 TABLET tablet 1 tab PO BID PRN PRN (Reason: pain) RF: 0 pregabalin 50 MG capsule 50 mg PO BID RF: 0 promethazine 25 MG tablet 25 mg PO Q4H PRN PRN (Reason: Nausea) RF: 0 ergocalciferol (vitamin D2) [Vitamin D2] 1,250 mcg (50,000 unit) capsule RF: 0 Primary Care Provider: Benson Mckeon Referrals: Benson Mckeon DO [Primary Care Provider] - Disposition Disposition: Home, self care
[2020-10-30] MEDS: oxyCODONE 5 MG Tablet 10 MG PO (02:19)
[2020-10-30] MEDS: proMETHazine 25 MG Tablet 12.5 MG PO (02:20)
== END 2020-10-30 02:24 | disposition home or self-care (01) ==
PROVIDERS: Emergency Provider Emergency Medicine; PCP Preventive Medicine Occupational Medicine
DX: M79.10 Myalgia, unspecified site (principal); M06.9 Rheumatoid arthritis, unspecified; G89.29 Other chronic pain
CPT/HCPCS: 99283

== ENCOUNTER 2020-11-15 21:27 | Emergency (ER) | payer OTHER, SELFPAY ==
[2020-11-15 21:29] VITALS: BP 151/76; PULSE 95; RESP 15; TEMP 36.9; O2SAT 97; BMI 27.1
[2020-11-15 21:45] VITALS: BP 151/76; PULSE 95; RESP 15; TEMP 36.9; O2SAT 97
--- NOTE | 2020-11-15 22:09 | EDS_ITS ---
HPI HPI - GI History of Present Illness Chief Complaint: Abd Pain Narrative Narrative: 60-year-old female presenting with abdominal pain which she describes as epigastric in nature. Patient states she had a liver biopsy 2 weeks ago at [facility] by her GI doctor to determine the source of her cirrhosis. Patient states that she did not tolerate the procedure well and was not sedated throughout the procedure. She continued to have pain while she was in the GI suite and was taken to the emergency room for pain control. She was subsequently discharged and has had pain for 2 weeks. She states that she also has symptoms of low platelets and she does bleed easily. Patient denies any black or bloody stools. She denies nausea/vomiting. Patient is taking Percocet at home with some relief of her pain. Patient states that she did call her GI d octor throughout the last 2 weeks and was told to follow-up with her primary care physician. [facility] Medical History Arthritis Cirrhosis of liver Home Medications diazepam 5 mg PO TID PRN 02/20/17 [History Last Taken 12/20/17] pantoprazole 40 mg PO DAILY PRN 11/18/17 [History Last Taken 12/20/17] oxycodone-acetaminophen 1 tab PO BID PRN PRN 12/21/18 [History Last Taken Unknown] pregabalin 50 mg PO BID 12/21/18 [History Last Taken Unknown] promethazine 25 mg PO Q4H PRN PRN 04/16/20 [History Last Taken Unknown] ergocalciferol (vitamin D2) [Vitamin D2] 10/30/20 [History Last Taken Unknown] oxycodone 5 mg PO Q6H PRN 3 Days #12 cap 10/30/20 [Rx Last Taken Unknown] Allergy/AdvReac Type Severity Reaction Status Date / Time adhesive tape Allergy Rash Verified 10/30/20 01:46 alprazolam [From Xanax] Allergy Unknown Verified 10/30/20 01:46 cyclobenzaprine HCl Allergy Unknown Verified 10/30/20 01:46 [From Flexeril] ibuprofen Allergy Nausea Verified 10/30/20 01:46 Iodinated Contrast Media Allergy Other Verified 10/30/20 01:46 [DYEE] prochlorperazine edisylate Allergy Unknown Verified 10/30/20 01:46 [From Compazine] prochlorperazine maleate Allergy Unknown Verified 10/30/20 01:46 [From Compazine] red dye Allergy Nausea Verified 10/30/20 01:46 acetaminophen [From Tylenol] AdvReac Other Verified 10/30/20 01:46 ondansetron AdvReac Nausea/Vom/ Verified 10/30/20 01:46 [From Zofran (as Diarrhea hydrochloride)] Social History Smoking Status: Never smoker ROS ROS ED Constitutional Constitutional ED: Denies chills, fever(s) or sweats Eyes Eyes: Denies blurry vision or change in vision ENT ENT ED: Denies ear pain, rhinorrhea or sore throat Cardiovascular Cardiovascular: Denies chest pain, palpitations or racing heartbeat Respiratory/Chest Respiratory/Chest: Denies cough, dyspnea or sputum Gastrointestinal Gastrointestinal: Reports abdominal pain; Denies constipation, diarrhea or vomiting Genitourinary Genitourinary ED: Denies dysuria, hematuria or urinary frequency Musculoskeletal Musculoskeletal: Denies arthralgias, myalgias or neck pain Integumentary Denies abscess, Abrasions or rash Neurologic Neurologic: Denies headache(s), paresthesias or weakness Psychiatric Psychiatric: Denies anxiety, depression, suicidal ideation or suicidal thoughts Endocrine Endocrinology: Denies polydipsia or polyuria EXAM Physical Exam Const Vital Signs: 11/15/20 21:29 11/15/20 21:45 11/15/20 22:39 Temperature 98.5 F 98.5 F 98.5 F Temperature Source Temporal Temporal Temporal Pulse Rate 95 95 85 Respiratory Rate 15 15 15 Blood Pressure 151/76 H 151/76 H 126/78 H Blood Pressure Mean 101 101 94 Pulse Ox 97 97 97 Oxygen Delivery Method Room Air Room Air Room Air General Appearance ED: Negative for pallor HEENT Reports normocephalic, head/scalp atraumatic and moist mucous membranes Eyes PERRL and EOMs intact bilaterally Neck no lymphadenopathy and supple Chest Wall inspection of chest normal and palpation of chest normal Resp normal respiratory effort and clear to auscultation bilaterally Auscultation: Negative for rales, rhonchi or wheezes Cardio regular rate and regular rhythm GI normal to inspection, nondistended, normoactive bowel sounds Inspection: abdominal distention Auscultation: normoactive bowel sounds Palpation: soft and tender epigastric Narrative: Deferred Back/Spine no CVA tenderness General Back: Negative for CVA tenderness Cervical Spine: Negative for cervical spine tenderness Extremity normal to inspection General Extremety ED: Yes edema and tenderness General Extremity: edema Neuro oriented x3 and CN's II-XII intact bilaterally Sensorium / Orientation: alert Motor Exam: strength 5/5 throughout Psych mental status grossly normal Attitude: No agitated Skin no rashes or lesions noted and no wounds General Skin Exam: Negative for jaundice or pallor MDM MDM MDM Narrative Medical decision making narrative: Patient presenting with abdominal pain for the last 2 weeks since she had her biopsy on her liver. She states that oxycodone does help but then it comes back. Patient had lab work drawn today which is all at her baseline or improved. Her vital signs are stable and she is afebrile. CT of the abdomen pelvis without contrast is performed due to contrast allergy and finds no acute abdominal process. Patient given 2 doses of morphine and is comfortable. Patient states that she will follow-up with her primary care physician and has a scheduled appointment with pain management. Patient discharged home in stable condition. Impression: 1. Abdominal pain Lab Data Labs: Laboratory Results - last 24 hr 11/15/20 11/15/20 22:10 22:10 WBC 3.4 L RBC 4.13 L Hgb 12.4 Hct 38.0 MCV 92.0 MCH 30.0 MCHC 32.6 RDW Std Deviation 49.0 H RDW Coeff of Maximo 14.5 Plt Count 104 L MPV 9.0 Immature Gran % (Auto) 0.300 Neut % (Auto) 34.4 L Lymph % (Auto) 52.1 H [place] % (Auto) 8.8 Eos % (Auto) 3.8 Baso % (Auto) 0.6 Absolute Neuts (auto) 1.2 L Absolute Lymphs (auto) 1.77 Nucleated RBC % 0 Sodium 140 Potassium 4.0 Chloride 106 Carbon Dioxide 26.0 Anion Gap 8 BUN 10 Creatinine 0.86 Estim Creat Clear Calc 55.02 Est GFR (MDRD) Af Amer 87 Est GFR (MDRD) Non-Af 72 BUN/Creatinine Ratio 11.7 Glucose 103 Calcium 9.2 Total Bilirubin 0.70 Direct Bilirubin 0.17 AST 45 H ALT 22 Alkaline Phosphatase 108 Total Protein 8.2 Albumin 3.9 Globulin 4.3 H Lipase 162 Radiography Diagnostic Testing: Radiology Impression Abdomen/Pelvis CT 11/15/20 22:15 IMPRESSION: No acute findings in the abdomen or pelvis. No intra-abdominal free air or free fluid collections. Electronically Signed: Eloy Ramos MD at 23:21 EDT , Service support , Discharge Plan Triage Chief Complaint: Abd Pain ED Provider: Deep Joy Dx/Rx/DC Orders Instructions: ED Abdominal Pain Unkn Cause Fem Prescriptions: No Action diazepam 5 MG tablet 5 mg PO TID PRN (Reason: Anxiety) RF: 0 pantoprazole 40 MG tablet 40 mg PO DAILY PRN (Reason: gerd) RF: 0 oxycodone-acetaminophen 1 TABLET tablet 1 tab PO BID PRN PRN (Reason: pain) RF: 0 pregabalin 50 MG capsule 50 mg PO BID RF: 0 promethazine 25 MG tablet 25 mg PO Q4H PRN PRN (Reason: Nausea) RF: 0 ergocalciferol (vitamin D2) [Vitamin D2] 1,250 mcg (50,000 unit) capsule RF: 0 oxycodone 5 mg capsule 5 mg PO Q6H PRN (Reason: pain) 3 Days Qty: 12 RF: 0 Primary Care Provider: Benson Mckeon Referrals: Benson Mckeon DO [Primary Care Provider] - Disposition Disposition: Home, self care
--- NOTE | 2020-11-15 22:15 | CT_ITS ---
STUDY: CT ABDOMEN AND PELVIS WITHOUT CONTRAST REASON FOR EXAM: Female, 60 years old. Pain-post liver biopsy for cirrhosis 11-06-20 RADIATION DOSAGE (If Supplied By Facility): CTDIvol = ( 6.93 ) mGy, DLP = ( 325.33 ) mGycm TECHNIQUE: Transaxial images were obtained from the dome of the diaphragm to the symphysis pubis without oral contrast, and without intravenous contrast. Sagittal and coronal images were reconstructed. Individualized dose optimization techniques were used for this CT. COMPARISON: None. FINDINGS: Tiny calcified right lower lobe lung nodule. The visualized portions of the heart are within normal limits. Normal liver. Normal gallbladder and extrahepatic biliary system. Normal spleen. Normal pancreas. Normal bilateral adrenal glands. Normal right kidney. Normal left kidney. Evaluation of solid organs is limited without intravenous contrast. Normal visualized stomach. Normal small intestine. Normal colon. There is non-visualization of the appendix. Normal abdominal aorta. Normal inferior vena cava. Normal retroperitoneum. No intra-abdominal free air. Normal urinary bladder. Uterus absent compatible with hysterectomy. No adnexal mass is seen. Normal abdominal wall. Normal osseous structures. CT/Abdomen/Pelvis without Cont IMPRESSION: No acute findings in the abdomen or pelvis. No intra-abdominal free air or free fluid collections. Electronically Signed: Eloy Ramos MD at 23:21 EDT , Service support ,
[2020-11-15 22:28] LABS: Absolute Lymphocyte Count 1.77 X10^3/uL (0.83-4.51); Absolute Neutrophil Count 1.2 X10^3/uL (2.0-7.7); Basophil# 0.02 X10^3/uL; Basophil% 0.6 % (0-1); Eosinophil# 0.13 X10^3/uL; Eosinophils% 3.8 % (0-5); Hemoglobin 12.4 g/dL (12.0-15.0); Lymphocyte # 1.77 X10^3/ul (0.83-4.51); Lymphocyte % 52.1 % (19-41); Mean Corp Hgb Conc 32.6 g/dL (32-36); Monocyte% 8.8 % (0-10); NRBC Flagged by Analyzer 0 % (0-5); Neutrophil # 1.17 X10^3/uL (2.7-7.7); Neutrophil % 34.4 % (47-70); Platelet Count 104 K/mm3 (150-450); RBC Distribution Width CV 14.5 % (11.6-14.6); Red Blood Count 4.13 M/mm3 (4.2-5.4); White Blood Count 3.4 K/mm3 (4.4-11.0)
[2020-11-15] MEDS: Morphine 4 MG/ML Syringe IV ×2 (22:28→23:28)
[2020-11-15 22:39] VITALS: BP 126/78; PULSE 85; RESP 15; TEMP 36.9; O2SAT 97
[2020-11-15 22:59] LABS: AST(SGOT) 45 U/L (15-37); Alanine Aminotransfer ALT/SGPT 22 U/L (13-56); Albumin, Serum 3.9 g/dL (3.2-5.0); Alkaline Phosphatase 108 U/L (45-117); Anion Gap 8 (5-15); BUN 10 mg/dL (7-18); BUN/Creat Ratio 11.7 RATIO (10-20); Bilirubin, Direct 0.17 mg/dL (0.00-0.30); Calcium,Total 9.2 mg/dL (8.5-10.1); Chloride 106 mmol/L (98-107); Creatinine, Serum 0.86 mg/dL (0.55-1.02); EST Glomerular Filtration Rate 72 mL/min (>60); Est Glom Filt Rate - Afr Amer 87 mL/min (>60); Estimated Creatinine Clearance 55.02 ml/min; Globulin 4.3 g/dL (2.2-4.2); Glucose 103 mg/dL (74-106); Lipase 162 U/L (73-393); Protein, Total 8.2 g/dL (6.4-8.2); Sodium Level 140 mmol/L (136-145)
[2020-11-15 23:46] VITALS: BP 124/64; BP 126/78; PULSE 82; PULSE 85; RESP 15; TEMP 36.9; O2SAT 100; O2SAT 97
== END 2020-11-15 23:46 | disposition home or self-care (01) ==
PROVIDERS: Emergency Provider Student in an Organized Health Care Education/Training Program; PCP Preventive Medicine Occupational Medicine
DX: R10.13 Epigastric pain (principal); K74.60 Unspecified cirrhosis of liver
CPT/HCPCS: 74176; 80048; 80076; 83690; 85025; 96374; 96376; 99285; J7030; A4216

== ENCOUNTER 2020-11-29 21:44 | Emergency (ER) | payer OTHER, SELFPAY ==
[2020-11-29 21:45] VITALS: BP 165/89; PULSE 104; RESP 16; TEMP 37; O2SAT 92; BMI 26.0
--- NOTE | 2020-11-29 22:14 | EDS_ITS ---
HPI History of Present Illness Chief Complaint: Other, Pain/Inj Informant: patient Onset/Context/Timing Onset: Days (4) Context: Gradual Onset Timing: Continuous Quality: Aching, sharp Location: Lower lumbar and lower chest Worsened by: Laying on right side and stress Relieved by: Nothing Narrative Narrative: Patient presents with exacerbation of her chronic back pain that has been getting worse over the past 4 days. Patient also admits to some lower chest pain. Patient describes her pain is aching and sharp at times. Patient states the pain is over her lower lumbar area and lower chest area. Patient states her pain is worse on the left. Patient states her pain is worsened by laying on her right side. Patient also states that her pain is worse with stress. Patient states she got into an argument with her which causes her more stress and more pain. [facility] Medical History Arthritis Cirrhosis of liver Home Medications diazepam 5 mg PO TID PRN 02/20/17 [History Last Taken 12/20/17] pantoprazole 40 mg PO DAILY PRN 11/18/17 [History Last Taken 12/20/17] oxycodone-acetaminophen 1 tab PO BID PRN PRN 12/21/18 [History Last Taken Unknown] pregabalin 50 mg PO BID 12/21/18 [History Last Taken Unknown] promethazine 25 mg PO Q4H PRN PRN 04/16/20 [History Last Taken Unknown] ergocalciferol (vitamin D2) [Vitamin D2] 10/30/20 [History Last Taken Unknown] oxycodone 5 mg PO Q6H PRN 3 Days #12 cap 10/30/20 [Rx Last Taken Unknown] Allergy/AdvReac Type Severity Reaction Status Date / Time adhesive tape Allergy Rash Verified 11/29/20 21:47 alprazolam [From Xanax] Allergy Unknown Verified 11/29/20 21:47 cyclobenzaprine HCl Allergy Unknown Verified 11/29/20 21:47 [From Flexeril] ibuprofen Allergy Nausea Verified 11/29/20 21:47 Iodinated Contrast Media Allergy Other Verified 11/29/20 21:47 [DYEE] prochlorperazine edisylate Allergy Unknown Verified 11/29/20 21:47 [From Compazine] prochlorperazine maleate Allergy Unknown Verified 11/29/20 21:47 [From Compazine] red dye Allergy Nausea Verified 11/29/20 21:47 acetaminophen [From Tylenol] AdvReac Other Verified 11/29/20 21:47 ondansetron AdvReac Nausea/Vom/ Verified 11/29/20 21:47 [From Zofran (as Diarrhea hydrochloride)] Social History Smoking Status: Never smoker ROS ROS ED Constitutional Constitutional ED: Reports chills and subjective; Denies fever(s) Eyes Eyes: Reports diplopia; Denies blurry vision ENT ENT ED: Denies rhinorrhea or sore throat Cardiovascular Cardiovascular: Reports chest pain; Denies palpitations Respiratory/Chest Respiratory/Chest: Denies cough or dyspnea Gastrointestinal Gastrointestinal: Reports abdominal pain and nausea Genitourinary Genitourinary ED: Denies dysuria or hematuria Musculoskeletal Musculoskeletal: Reports back pain; Denies neck pain Integumentary Reports pruritus and other; Denies abscess or rash Neurologic Neurologic: Denies paresthesias or weakness Psychiatric Psychiatric: Reports anxiety Allergic/Immunologic Allergic/Immunologic ED: Reports urticaria; Denies mouth swelling EXAM Physical Exam Const Vital Signs: 11/29/20 21:45 11/29/20 22:03 11/29/20 22:33 Temperature 98.6 F Temperature Source Temporal Pulse Rate 104 H 91 Respiratory Rate 16 18 Respiratory Effort Normal Non-Labored Blood Pressure 165/89 H 140/55 H Blood Pressure Mean 114 83 Pulse Ox 92 98 Oxygen Delivery Method Room Air Room Air 11/30/20 00:33 11/30/20 02:09 Temperature Temperature Source Pulse Rate 89 86 Respiratory Rate 17 16 Respiratory Effort Blood Pressure 125/67 H Blood Pressure Mean 86 Pulse Ox 93 94 Oxygen Delivery Method Room Air Room Air Positive well nourished and well developed General Appearance ED: well developed HEENT Reports moist mucous membranes normocephalic and atraumatic Eyes EOMs intact bilaterally General Eye ED: Negative for scleral icterus Neck supple and no JVD Resp normal respiratory effort and clear to auscultation bilaterally Cardio regular rate, regular rhythm and no murmurs Rate: regular rate Rhythm: regular rhythm GI normal to inspection, nondistended, normoactive bowel sounds, non-tender and non-distended Auscultation: normoactive bowel sounds Palpation: soft Extremity normal to inspection General Extremety ED: Negative for edema or tenderness General Extremity: Negative for edema Neuro oriented x3, CN's II-XII intact bilaterally and no sensory deficits noted Sensorium / Orientation: alert Motor Exam: strength 5/5 throughout Psych mental status grossly normal Mood & Affect: anxious Skin General Skin Exam: Negative for jaundice Rashes: no rashes MDM MDM MDM Narrative Medical decision making narrative: Patient was given a dose of morphine here. Patient refused an EKG. CBC was essentially within normal limits. Comprehensive metabolic profile was normal. Urinalysis was normal. X-rays of the lumbar spine were obtained. There are 2 views. On my interpretation, there is no acute fracture, spondylolisthesis, or spondylolysis noted. There is some mild degenerative changes. Radiologist also interpreted the x-rays and agrees. Portable 1 view chest x-ray was obtained. On my interpretation, lung mullins are clear. There is normal cardiac silhouette. Bony thorax is normal. There is no acute process noted. Radiologist also interpreted the x-ray and felt there may be a left lingular or lower lobe infiltrate. Patient is not having any cough or fever. Clinically, the patient does not have any symptoms of pneumonia. She only has the pain on the left side of her chest which was the indication for the x-ray. Patient was still somewhat anxious on reevaluation. Patient states she felt like she would benefit from some IV fluids. Patient was given a liter bolus. Patient was also given a repeat dose of morphine. Patient was feeling better on reevaluation. Patient was instructed to follow-up with her primary care physician in 3 to 5 days. Patient was instructed to continue her pain medication as previously prescribed. Patient understood and was agreeable with the plan. All questions were answered. Lab Data Attestation: I reviewed the patient's lab results. Labs: Laboratory Results - last 24 hr 11/29/20 11/29/20 11/29/20 22:32 22:32 23:39 WBC 3.3 L RBC 4.09 L Hgb 12.6 Hct 38.2 MCV 93.4 MCH 30.8 MCHC 33.0 RDW Std Deviation 50.4 H RDW Coeff of Maximo 14.6 Plt Count 99 L MPV 8.8 Immature Gran % (Auto) 0.000 Neut % (Auto) 25.8 L Lymph % (Auto) 59.5 H [place] % (Auto) 10.5 H Eos % (Auto) 3.9 Baso % (Auto) 0.3 Absolute Neuts (auto) 0.9 L Absolute Lymphs (auto) 1.98 Nucleated RBC % 0 Differential Comment SEE COMMENT Platelet Estimate MOD DEC RBC Morphology N CHROM Anisocytosis RARE Macrocytosis RARE Sodium 141 Potassium 3.6 Chloride 108 H Carbon Dioxide 25.0 Anion Gap 8 BUN 7 Creatinine 0.82 Estim Creat Clear Calc 57.70 Est GFR (MDRD) Af Amer 91 Est GFR (MDRD) Non-Af 75 BUN/Creatinine Ratio 8.5 L Glucose 92 Calcium 9.5 Total Bilirubin 0.70 AST 47 H ALT 27 Alkaline Phosphatase 109 Total Protein 7.9 Albumin 3.7 Globulin 4.2 Albumin/Globulin Ratio 0.9 Urine Color Yellow Urine Clarity Clear Urine pH 5.0 Ur Specific Ty[place] 1.015 Urine Protein Negative Urine Glucose (UA) Normal Urine Ketones Negative Urine Occult Blood Negative Urine Nitrite Negative Urine Bilirubin Negative Urine Urobilinogen Normal Ur Leukocyte Esterase Negative Urine RBC 0 SEEN Urine WBC 0 SEEN Ur Squamous Epith Cells 0 SEEN Urine Bacteria RARE Urine Mucus 0 SEEN Radiography Chest X-Ray - ED: 1 View, Read by ED Physician, Read by Radiologist and Unchanged Diagnostic Testing: Radiology Impression Lumbar Spine X-Ray 11/29/20 22:14 IMPRESSION: Mild dextroconvex scoliosis Electronically Signed: Chad Beck MD at 23:22 EDT , Service support , Chest X-Ray 11/29/20 22:35 IMPRESSION: Left lower lobe or lingular infiltrate. Recommend follow-up to resolution. Electronically Signed: Chad Beck MD at 23:15 EDT , Service support , Discharge Plan Triage Chief Complaint: Other, Pain/Inj ED Provider: Suraj Louis Dx/Rx/DC Orders Clinical Impression: Acute exacerbation of chronic low back pain, Anxiety Instructions: ED Chronic Pain Prescriptions: No Action diazepam 5 MG tablet 5 mg PO TID PRN (Reason: Anxiety) RF: 0 pantoprazole 40 MG tablet 40 mg PO DAILY PRN (Reason: gerd) RF: 0 oxycodone-acetaminophen 1 TABLET tablet 1 tab PO BID PRN PRN (Reason: pain) RF: 0 pregabalin 50 MG capsule 50 mg PO BID RF: 0 promethazine 25 MG tablet 25 mg PO Q4H PRN PRN (Reason: Nausea) RF: 0 ergocalciferol (vitamin D2) [Vitamin D2] 1,250 mcg (50,000 unit) capsule RF: 0 oxycodone 5 mg capsule 5 mg PO Q6H PRN (Reason: pain) 3 Days Qty: 12 RF: 0 Primary Care Provider: Benson Mckeon Referrals: Benson Mckeon DO [Primary Care Provider] - 3-5 Days Disposition Disposition: Home, self care Discharge Date/Time: 11/30/20 02:26
--- NOTE | 2020-11-29 22:14 | RAD_ITS ---
STUDY: X-RAY - LUMBAR SPINE REASON FOR EXAM: Female, 60 years old. Injury/Pain TECHNIQUE: 2 view(s) of the lumbar spine were obtained. COMPARISON: MRI lumbar spine 07/28/2018 FINDINGS: Normal lumbar lordosis. Mild dextroconvex scoliosis. There is a normal alignment of the vertebrae. Normal vertebral bodies and endplates. Normal disc space heights. The soft tissue structures are unremarkable. RAD/Lumbar Spine 2 or 3 Views IMPRESSION: Mild dextroconvex scoliosis Electronically Signed: Chad Beck MD at 23:22 EDT , Service support ,
[2020-11-29] MEDS: Morphine 4 MG/ML Syringe IV (22:28)
[2020-11-29 22:33] VITALS: BP 140/55; PULSE 91; RESP 18; O2SAT 98
--- NOTE | 2020-11-29 22:35 | RAD_ITS ---
STUDY: X-RAY CHEST REASON FOR EXAM: Female, 60 years old. Chest pain TECHNIQUE: Single frontal view of the chest. COMPARISON: 04/16/2020 FINDINGS: Left lower lobe or lingular infiltrate. There is no demonstrated pleural abnormality. Normal size heart. Normal mediastinum and alexandru. Normal visualized pulmonary arteries. Normal visualized aortic arch and descending thoracic aorta. Normal visualized thoracic spine. Normal visualized ribs, clavicles, and shoulders. There is no demonstrated abnormality of the visualized soft tissue structures of the upper abdomen. RAD/Chest 1 View (Portable) IMPRESSION: Left lower lobe or lingular infiltrate. Recommend follow-up to resolution. Electronically Signed: Chad Beck MD at 23:15 EDT , Service support ,
[2020-11-29 22:41] LABS: Absolute Lymphocyte Count 1.98 X10^3/uL (0.83-4.51); Absolute Neutrophil Count 0.9 X10^3/uL (2.0-7.7); Basophil# 0.01 X10^3/uL; Basophil% 0.3 % (0-1); Eosinophil# 0.13 X10^3/uL; Eosinophils% 3.9 % (0-5); Hematocrit 38.2 % (37-47); Hemoglobin 12.6 g/dL (12.0-15.0); Lymphocyte # 1.98 X10^3/ul (0.83-4.51); Lymphocyte % 59.5 % (19-41); Mean Corpuscular Hgb 30.8 pg (27.0-32.0); Mean Corpuscular Volume 93.4 fL (81-99); Mean Platelet Vol. 8.8 fl (6.2-12.0); Monocyte# 0.35 X10^3/uL; Monocyte% 10.5 % (0-10); NRBC Flagged by Analyzer 0 % (0-5); Neutrophil # 0.86 X10^3/uL (2.7-7.7); Neutrophil % 25.8 % (47-70); POSITIVE COUNT YES; POSITIVE DIFFERENTIAL YES; Platelet Count 99 K/mm3 (150-450); RBC Distribution Width CV 14.6 % (11.6-14.6); RBC Distribution Width SD 50.4 fl (35.1-43.9); Red Blood Count 4.09 M/mm3 (4.2-5.4); White Blood Count 3.3 K/mm3 (4.4-11.0)
[2020-11-29 22:57] LABS: ALB/GLOB Ratio 0.9 RATIO (0.9-2.4); AST(SGOT) 47 U/L (15-37); Alanine Aminotransfer ALT/SGPT 27 U/L (13-56); Albumin, Serum 3.7 g/dL (3.2-5.0); Alkaline Phosphatase 109 U/L (45-117); Anion Gap 8 (5-15); BUN 7 mg/dL (7-18); BUN/Creat Ratio 8.5 RATIO (10-20); Calcium,Total 9.5 mg/dL (8.5-10.1); Chloride 108 mmol/L (98-107); Creatinine, Serum 0.82 mg/dL (0.55-1.02); EST Glomerular Filtration Rate 75 mL/min (>60); Est Glom Filt Rate - Afr Amer 91 mL/min (>60); Globulin 4.2 g/dL (2.2-4.2); Glucose 92 mg/dL (74-106); Potassium 3.6 mmol/L (3.5-5.1); Protein, Total 7.9 g/dL (6.4-8.2); Sodium Level 141 mmol/L (136-145)
[2020-11-29 23:21] LABS: Differential Indicated SCAN CRITERIA MET
[2020-11-29 23:26] LABS: Anisocytosis RARE; Macrocytosis RARE; Platelet Estimate MOD DEC (ADEQ); Red Cell Morphology N CHROM NORMAL (NORM C&C)
[2020-11-29 23:49] LABS: Mucous, Urine 0 SEEN /hpf (<or=2+); Red Blood Cells-Urine 0 SEEN /hpf (0-5); Squamous Epithelial Cells - UA 0 SEEN /hpf (5-10); White Blood Cells 0 SEEN /hpf (0-5)
[2020-11-30 00:17] LABS: Color, Urine Yellow (Yellow); Glucose, Dipstick Normal (Normal); Ketone-Dipstick Negative (Negative); Leukocyte Esterase-Dipstick Negative /ul (Negative); Nitrite-Dipstick Negative (Negative); Occult Blood-Urine Negative /ul (Negative); Protein-Dipstick Negative (Negative); Specific Gravity, Urine 1.015 (1.002-1.030); Urine Bilirubin Dipstick Negative (Negative); Urine Clarity Clear (Clear); Urine Urobilinogen Normal (Normal)
[2020-11-30 00:25] LABS: Bacteria RARE /hpf (None Seen)
[2020-11-30 00:33] VITALS: BP 125/67; PULSE 89; RESP 17; O2SAT 93
[2020-11-30] MEDS: Morphine 4 MG/ML Syringe IV (01:37)
[2020-11-30] MEDS: 0.9% Normal Saline 1,000 ML 1000 ML IV (01:37)
[2020-11-30 02:09] VITALS: PULSE 86; RESP 16; O2SAT 94
== END 2020-11-30 02:26 | disposition home or self-care (01) ==
PROVIDERS: Emergency Provider Emergency Medicine; PCP Preventive Medicine Occupational Medicine
DX: M54.5 Low back pain (principal); G89.29 Other chronic pain; F41.9 Anxiety disorder, unspecified
CPT/HCPCS: 71045; 72100; 80053; 81001; 85025; 96374; 96376; 99283; J7030; A4216

== ENCOUNTER 2021-08-12 09:31 | Outpatient (CLI) | payer BC, SELFPAY ==
--- NOTE | 2021-08-12 16:41 | EKG12_ITS ---
Test Reason : Blood Pressure : / mmHG Vent. Rate : 085 BPM Atrial Rate : 085 BPM P-R Int : 102 ms QRS Dur : 076 ms QT Int : 370 ms P-R-T Axes : 025 049 053 degrees QTc Int : 440 ms Sinus rhythm with short NM with Premature supraventricular complexes Otherwise normal ECG Confirmed by ANTONIA MEJÍA, DAVID ([id number]), design editor JOELLEN HERNANDEZ ([id number]) on 08/12/2021 9:37:35 AM Referred By: Aye Fields Confirmed By:DAVID KNIGHT MD
== END 2021-08-12 23:59 | disposition home or self-care (01) ==
PROVIDERS: PCP Preventive Medicine Occupational Medicine; Referring Provider Family Medicine Hospice and Palliative Medicine; Visit Provider Family Medicine Hospice and Palliative Medicine
DX: Z79.899 Other long term (current) drug therapy (principal)
CPT/HCPCS: 93005

== ENCOUNTER 2021-08-18 21:27 | Emergency (ER) | payer BC, SELFPAY ==
[2021-08-18 21:27] VITALS: BP 131/67; PULSE 94; RESP 17; TEMP 36.2; O2SAT 94; BMI 21.9
--- NOTE | 2021-08-18 22:10 | EDS_ITS ---
HPI History of Present Illness Chief Complaint: Other, Pain/Inj Informant: patient and spouse/S.O. Onset/Context/Timing Onset: Days Context: Gradual Onset Timing: Continuous Current Severity: Mild Maximum Severity: Moderate Narrative Narrative: 61-year-old female history of nonalcoholic liver cirrhosis, rheumatoid arthritis, anxiety, chronic pain for which she is under palliative care. She already takes methadone, oxycodone and medical marijuana for this condition. States she has had increasing pain over the last 2 to 3 days. She denies any nausea, vomiting, diarrhea or fever. No dysuria. She has had similar symptoms for the last 4 years. Prior similar symptoms: Yes Recent Illness/Hospitalization: No PFSH PFSH Medical History Arthritis Cirrhosis of liver Home Medications diazepam 5 mg PO TID PRN 02/20/17 [History Last Taken 12/20/17] pantoprazole 40 mg PO DAILY PRN 11/18/17 [History Last Taken 12/20/17] oxycodone-acetaminophen 1 tab PO BID PRN PRN 12/21/18 [History Last Taken Unknown] pregabalin 50 mg PO BID 12/21/18 [History Last Taken Unknown] promethazine 25 mg PO Q4H PRN PRN 04/16/20 [History Last Taken Unknown] ergocalciferol (vitamin D2) [Vitamin D2] 10/30/20 [History Last Taken Unknown] oxycodone 5 mg PO Q6H PRN 3 Days #12 cap 10/30/20 [Rx Last Taken Unknown] Allergy/AdvReac Type Severity Reaction Status Date / Time adhesive tape Allergy Rash Verified 08/18/21 21:30 alprazolam [From Xanax] Allergy Unknown Verified 08/18/21 21:30 cyclobenzaprine HCl Allergy Unknown Verified 08/18/21 21:30 [From Flexeril] ibuprofen Allergy Nausea Verified 08/18/21 21:30 Iodinated Contrast Media Allergy Other Verified 08/18/21 21:30 [DYEE] prochlorperazine edisylate Allergy Unknown Verified 08/18/21 21:30 [From Compazine] prochlorperazine maleate Allergy Unknown Verified 08/18/21 21:30 [From Compazine] red dye Allergy Nausea Verified 08/18/21 21:30 acetaminophen [From Tylenol] AdvReac Other Verified 08/18/21 21:30 ondansetron AdvReac Nausea/Vom/ Verified 08/18/21 21:30 [From Zofran (as Diarrhea hydrochloride)] Social History Smoking Status: Never smoker ROS ROS ED ROS Narrative Denies. Except for diffuse pain. Review of Systems ROS Unobtainable: Denies due to encephalopathy Constitutional Constitutional ED: Denies fever(s) Eyes Eyes: Denies change in vision ENT ENT ED: Denies ear pain Cardiovascular Cardiovascular: Denies chest pain Respiratory/Chest Respiratory/Chest: Denies dyspnea Gastrointestinal Gastrointestinal: Denies abdominal pain, diarrhea, nausea or vomiting Genitourinary Genitourinary ED: Denies dysuria Musculoskeletal Musculoskeletal: Reports arthralgias and myalgias Integumentary Denies rash Neurologic Neurologic: Denies headache(s) Psychiatric Psychiatric: Denies depression Endocrine Endocrinology: Denies polyuria Allergic/Immunologic Allergic/Immunologic ED: Denies urticaria EXAM Physical Exam Narrative Exam Narrative: 61-year-old female no acute distress. Vital signs stable afebrile. at bedside. Patient is anxious. H EENT exam unremarkable. Moist mucous membranes. Neck nontender no lymphadenopathy. Lungs clear to auscultation bilaterally. Heart regular rate and rhythm no murmur rate about 90. Abdomen soft nontender normal bowel sounds no peritoneal signs. Moving all 4 extremities. Normal strength. No edema. Back nontender. Neurologically she is awake and alert. Moving all 4 extremities. No focal motor deficits. Const Vital Signs: 08/18/21 21:27 08/18/21 22:26 08/18/21 23:33 Temperature 97.2 F L Temperature Source Temporal Pulse Rate 94 78 90 Respiratory Rate 17 16 15 Respiratory Effort Normal Respiratory Pattern Normal Blood Pressure 131/67 H 113/60 99/74 Blood Pressure Mean 88 77 Pulse Ox 94 98 98 Oxygen Delivery Method Room Air Room Air Positive well nourished and well developed; Negative for obese, cachectic, contractures or unkempt General Appearance ED: well developed and NAD; Negative for unkempt, cachectic, contractures, cyanotic, diaphoretic or pallor Nutritional Appearance: Negative for cachectic or obese HEENT Reports moist mucous membranes Negative for trauma or tenderness Eyes PERRL and EOMs intact bilaterally Neck no lymphadenopathy, supple and no JVD General: Negative for tenderness Chest Wall inspection of chest normal and palpation of chest normal Resp normal respiratory effort and clear to auscultation bilaterally Effort and Inspection: Negative for pain with movement Auscultation: Negative for rales, rhonchi or wheezes Cardio regular rate, regular rhythm, S1 normal heart sound, S2 normal heart sound and no murmurs GI normal to inspection, nondistended, normoactive bowel sounds, non-tender, non- distended and no masses Inspection: Negative for abdominal distention Auscultation: normoactive bowel sounds Palpation: soft; Negative for tender, guarding or rebound tenderness present Back/Spine no CVA tenderness General Back: Negative for CVA tenderness Cervical Spine: Negative for cervical spine tenderness Thoracic Spine / Upper Back: Negative for thoracic spinal tenderness or paraspinal muscle tenderness Lumbar Spine / Lower Back: Negative for lumbar spinal tenderness Extremity normal to inspection General Extremety ED: Negative for edema or tenderness General Extremity: Negative for edema Neuro oriented x3 and CN's II-XII intact bilaterally Sensorium / Orientation: alert; Negative for lethargic or stuporous Motor Exam: strength 5/5 throughout Psych mental status grossly normal Appearance: Negative for unkempt Attitude: No agitated Mood & Affect: Negative for depressed, anxious or tearful Skin no rashes or lesions noted, no wounds and No skin turgor normal General Skin Exam: Negative for elasticity normal, jaundice or pallor MDM MDM MDM Narrative Medical decision making narrative: 61-year-old with chronic pain under palliative care. Has a normal exam. Normal vital signs. I do not think she needs any lab work-up. She will be treated with IV morphine and Zofran. Repeat exam the patient is doing well at 11:18 PM. She feels comfortable being discharged home. She has further pain medications at home. Her repeat exam is benign. She did state that she had a urinary tract infection several weeks ago that was treated. Her palliative care doctor wanted her to get another urinalysis to ensure that was resolving. She'll give us a urine sample. She'll be discharged home. If it is positive for urinary tract infection I will contact her at home and call in an antibiotic if needed. She, I and her discussed that. Lab Data Attestation: I reviewed the patient's lab results. Lab results narrative: Patient's urinalysis returned and was negative. No nitrates. No red nor white cells. No bacteria. Labs: Laboratory Results - last 24 hr 08/18/21 23:25 Urine Color Yellow Urine Clarity Clear Urine pH 8.0 Ur Specific [place] 1.010 Urine Protein Negative Urine Glucose (UA) Normal Urine Ketones Negative Urine Occult Blood Negative Urine Nitrite Negative Urine Bilirubin Negative Urine Urobilinogen Normal Ur Leukocyte Esterase 25 H Urine RBC 0 SEEN Urine WBC 0 SEEN Ur Squamous Epith Cells 0 SEEN Urine Bacteria 0 SEEN Urine Mucus 0 SEEN Discharge Plan Triage Chief Complaint: Other, Pain/Inj Other Complaint: General Illness ED Provider: Paul Aquino Dx/Rx/DC Orders Clinical Impression: Chronic pain syndrome, History of cirrhosis Instructions: ED Chronic Pain Prescriptions: No Action diazepam 5 MG tablet 5 mg PO TID PRN (Reason: Anxiety) RF: 0 pantoprazole 40 MG tablet 40 mg PO DAILY PRN (Reason: gerd) RF: 0 oxycodone-acetaminophen 1 TABLET tablet 1 tab PO BID PRN PRN (Reason: pain) RF: 0 pregabalin 50 MG capsule 50 mg PO BID RF: 0 promethazine 25 MG tablet 25 mg PO Q4H PRN PRN (Reason: Nausea) RF: 0 ergocalciferol (vitamin D2) [Vitamin D2] 1,250 mcg (50,000 unit) capsule RF: 0 oxycodone 5 mg capsule 5 mg PO Q6H PRN (Reason: pain) 3 Days Qty: 12 RF: 0 Primary Care Provider: Benson Mckeon Referrals: Benson Mckeon DO [Primary Care Provider] - 3-5 Days if not improving Activity Restrictions/Additional Instructions: Follow-up with your primary care physician and/or your palliative care team if not improving. Home pain medications as prescribed. I will call you at home if your urinalysis shows signs of infection and you need treated with an antibiotic. Disposition Disposition: Home, Self Care Discharge Date/Time: 08/18/21 23:33
[2021-08-18 22:26] VITALS: BP 113/60; PULSE 78; RESP 16; O2SAT 98
[2021-08-18] MEDS: morphine 10 MG/ML Syringe IV (22:30)
[2021-08-18] MEDS: Ondansetron 4 MG/2 ML Vial IV (22:30)
[2021-08-18 23:33] VITALS: BP 99/74; PULSE 90; RESP 15; O2SAT 98
[2021-08-18 23:34] LABS: Bacteria 0 SEEN /hpf (None Seen); Mucous, Urine 0 SEEN /hpf (<or=2+); Red Blood Cells-Urine 0 SEEN /hpf (0-5); Squamous Epithelial Cells - UA 0 SEEN /hpf (5-10); White Blood Cells 0 SEEN /hpf (0-5)
[2021-08-18 23:41] LABS: Color, Urine Yellow (Yellow); Glucose, Dipstick Normal (Normal); Ketone-Dipstick Negative (Negative); Leukocyte Esterase-Dipstick 25 /ul (Negative); Nitrite-Dipstick Negative (Negative); Occult Blood-Urine Negative /ul (Negative); Protein-Dipstick Negative (Negative); Urine Bilirubin Dipstick Negative (Negative); Urine Clarity Clear (Clear); Urine Urobilinogen Normal (Normal)
== END 2021-08-18 23:33 | disposition home or self-care (01) ==
PROVIDERS: Emergency Provider Emergency Medicine; PCP Preventive Medicine Occupational Medicine; Visit Provider Emergency Medicine
DX: G89.4 Chronic pain syndrome (principal); M06.9 Rheumatoid arthritis, unspecified; K74.60 Unspecified cirrhosis of liver; F41.9 Anxiety disorder, unspecified; Z79.891 Long term (current) use of opiate analgesic; Z79.899 Other long term (current) drug therapy; Z51.5 Encounter for palliative care
CPT/HCPCS: 81001; 96374; 96375; 99283; A4216; J2405

== ENCOUNTER 2021-11-24 18:54 | Emergency (ER) | payer BC, SELFPAY ==
[2021-11-24 18:55] VITALS: BP 132/83; PULSE 91; RESP 18; TEMP 36.4; O2SAT 94; BMI 21.9
--- NOTE | 2021-11-24 19:08 | ED.VIS.BACK ---
HPI History of Present Illness Chief Complaint: Back Narrative Narrative: Patient presents with back pain, she was trying to help her mother out who just came from rehab, she hurt her lower thoracic and upper lumbar region on the right side. She has no radicular symptoms no bowel bladder compromise. No urinary retention symptoms. No saddle anesthesia. [facility] Medical History Arthritis Cirrhosis of liver Home Medications diazepam 5 mg PO TID PRN 02/20/17 [History Last Taken 12/20/17] pantoprazole 40 mg PO DAILY PRN 11/18/17 [History Last Taken 12/20/17] oxycodone-acetaminophen 1 tab PO BID PRN PRN 12/21/18 [History Last Taken Unknown] pregabalin 50 mg PO BID 12/21/18 [History Last Taken Unknown] promethazine 25 mg PO Q4H PRN PRN 04/16/20 [History Last Taken Unknown] ergocalciferol (vitamin D2) [Vitamin D2] 10/30/20 [History Last Taken Unknown] oxycodone 5 mg PO Q6H PRN 3 Days #12 cap 10/30/20 [Rx Last Taken Unknown] oxycodone 5 mg PO Q6H PRN 3 Days #10 cap 11/24/21 [Rx Last Taken Unknown] tizanidine 4 mg PO BID PRN #10 tab 11/24/21 [Rx Last Taken Unknown] Allergy/AdvReac Type Severity Reaction Status Date / Time adhesive tape Allergy Rash Verified 11/24/21 18:57 alprazolam [From Xanax] Allergy Unknown Verified 11/24/21 18:57 cyclobenzaprine HCl Allergy Unknown Verified 11/24/21 18:57 [From Flexeril] ibuprofen Allergy Nausea Verified 11/24/21 18:57 Iodinated Contrast Media Allergy Other Verified 11/24/21 18:57 [DYEE] prochlorperazine edisylate Allergy Unknown Verified 11/24/21 18:57 [From Compazine] prochlorperazine maleate Allergy Unknown Verified 11/24/21 18:57 [From Compazine] red dye Allergy Nausea Verified 11/24/21 18:57 acetaminophen [From Tylenol] AdvReac Other Verified 11/24/21 18:57 ondansetron AdvReac Nausea/Vom/ Verified 11/24/21 18:57 [From Zofran (as Diarrhea hydrochloride)] Social History Smoking Status: Never smoker ROS ROS ED ROS Narrative Past medical history: Reviewed Medications: Reviewed Social history: Noncontributory Review of systems: All systems negative except as indicated General: No fever Neck: No neck pain Cardiovascular: No chest pain Respiratory: No shortness of breath or cough Gastrointestinal: No abdominal pain, nausea vomiting or diarrhea Genitourinary: No dysuria Musculoskeletal: Back pain as in HPI Skin: No rash Neurological: No memory loss, confusion or any focal weakness Psych: No recent behavioral changes Hematologic: No easy bleeding or easy bruising EXAM Physical Exam Narrative Exam Narrative: Vitals reviewed General: Patient appears in some discomfort HEENT: Moist mucous membranes Neck: Nontender Cardiovascular normal heart rate Respiratory: No respiratory difficulty speaking in full sentences Abdomen: Soft and nontender, there is no suprapubic mass or pain Back: There is some tenderness over the lower paraspinal muscles in the trapezius and upper paraspinal muscles in the lumbar region on the right. Extremities: Moves all extremities without joint pain or signs of trauma Neurological: There is normal plantar flexion and dorsiflexion of both feet and great toes. Patellar and Achilles reflexes are normal. Normal strength and sensation. Negative straight leg test. Skin: No rash Psychiatric: Slightly anxious. Const Vital Signs: 11/24/21 18:55 Temperature 97.6 F L Temperature Source Temporal Pulse Rate 91 Respiratory Rate 18 Blood Pressure 132/83 H Blood Pressure Mean 99 Pulse Ox 94 Oxygen Delivery Method Room Air MDM MDM MDM Narrative Medical decision making narrative: Patient has an unremarkable exam, she does not meet criteria for stat MRI. She will be discharged with analgesia and muscle relaxants. Discharge Plan Triage Chief Complaint: Back ED Provider: Constantine Cobian Dx/Rx/DC Orders Clinical Impression: Acute lumbar myofascial strain, Acute thoracic myofascial strain Instructions: Back Safety: Bending, ED Back Pain (Acute or Chronic) Prescriptions: New oxycodone 5 mg capsule 5 mg PO Q6H PRN (Reason: pain) 3 Days Qty: 10 RF: 0 tizanidine 4 mg tablet 4 mg PO BID PRN (Reason: muscle spasticity) Qty: 10 RF: 0 No Action diazepam 5 MG tablet 5 mg PO TID PRN (Reason: Anxiety) RF: 0 pantoprazole 40 MG tablet 40 mg PO DAILY PRN (Reason: gerd) RF: 0 oxycodone-acetaminophen 1 TABLET tablet 1 tab PO BID PRN PRN (Reason: pain) RF: 0 pregabalin 50 MG capsule 50 mg PO BID RF: 0 promethazine 25 MG tablet 25 mg PO Q4H PRN PRN (Reason: Nausea) RF: 0 ergocalciferol (vitamin D2) [Vitamin D2] 1,250 mcg (50,000 unit) capsule RF: 0 oxycodone 5 mg capsule 5 mg PO Q6H PRN (Reason: pain) 3 Days Qty: 12 RF: 0 Primary Care Provider: Benson Mckeon Referrals: Benson Mckeon DO [Primary Care Provider] - 2 Days Disposition Disposition: Home, Self Care
[2021-11-24] MEDS: oxyCODONE 5 MG Tablet PO (19:19)
== END 2021-11-24 19:25 | disposition home or self-care (01) ==
LOC: ED 19:16
PROVIDERS: Emergency Provider Emergency Medicine; PCP Preventive Medicine Occupational Medicine; Visit Provider Emergency Medicine
DX: S29.012A Strain of muscle and tendon of back wall of thorax, initial encounter (principal); S39.012A Strain of muscle, fascia and tendon of lower back, initial encounter; X58.XXXA Exposure to other specified factors, initial encounter
CPT/HCPCS: 99283

== ENCOUNTER 2021-11-29 11:49 | Emergency (ER) | payer BC, MEDICAID, SELFPAY ==
[2021-11-29 11:50] VITALS: BP 134/54; PULSE 83; RESP 18; TEMP 37.2; O2SAT 95; BMI 21.9
--- NOTE | 2021-11-29 13:56 | EX.ED.DYSGE1 ---
HPI History of Present Illness Chief Complaint: Back Informant: patient Onset/Context/Timing Onset: Yesterday Timing: Continuous Quality: achy Location: all over Current Severity: Severe Maximum Severity: Severe Worsened by: moving Relieved by: oxycodone and methadone Associated Symptoms Associated Symptoms ED: cough Narrative Narrative: Patient was seen here several days ago late last week for a back injury after helping to lift her mom that they recently brought home from a skilled nursing. She was prescribed some medication for this, now she feels like she is getting worse and having achiness all over, myalgias and arthralgias, fevers up to 101, chills, severe nausea without vomiting, mild diarrhea, lower abdominal discomfort, minor nonproductive cough without dyspnea, she is chronically intermittent chest pain that is unchanged and she feels is related to her autoimmune arthritis/liver disease, and malaise. She has not been vaccinated against COVID because of her autoimmune hepatitis/cirrhosis for which she is in palliative care, and because of all of the severe pain that she has chronically, she is on methadone throughout the day in addition to oxycodone that she takes in between the methadone doses. This is been for the past 4 years that she is in severe chronic pain everywhere. [facility] Medical History (Updated 11/29/21 @ 15:[address] Real Mcdermott MD) Anxiety Arthritis Chronic pain syndrome Cirrhosis of liver Rheumatoid arthritis Home Medications diazepam 5 mg PO TID PRN 02/20/17 [History Last Taken 12/20/17] pantoprazole 40 mg PO DAILY PRN 11/18/17 [History Last Taken 12/20/17] oxycodone-acetaminophen 1 tab PO BID PRN PRN 12/21/18 [History Last Taken Unknown] pregabalin 50 mg PO BID 12/21/18 [History Last Taken Unknown] promethazine 25 mg PO Q4H PRN PRN 04/16/20 [History Last Taken Unknown] ergocalciferol (vitamin D2) [Vitamin D2] 10/30/20 [History Last Taken Unknown] oxycodone 5 mg PO Q6H PRN 3 Days #12 cap 10/30/20 [Rx Last Taken Unknown] oxycodone 5 mg PO Q6H PRN 3 Days #10 cap 11/24/21 [Rx Last Taken Unknown] tizanidine 4 mg PO BID PRN #10 tab 11/24/21 [Rx Last Taken Unknown] metoclopramide HCl 10 mg PO Q6H PRN #20 tab 11/29/21 [Rx Last Taken Unknown] Allergy/AdvReac Type Severity Reaction Status Date / Time adhesive tape Allergy Rash Verified 11/29/21 11:50 alprazolam [From Xanax] Allergy Unknown Verified 11/29/21 11:50 cyclobenzaprine HCl Allergy Unknown Verified 11/29/21 11:50 [From Flexeril] ibuprofen Allergy Nausea Verified 11/29/21 11:50 Iodinated Contrast Media Allergy Other Verified 11/29/21 11:50 [DYEE] prochlorperazine edisylate Allergy Unknown Verified 11/29/21 11:50 [From Compazine] prochlorperazine maleate Allergy Unknown Verified 11/29/21 11:50 [From Compazine] red dye Allergy Nausea Verified 11/29/21 11:50 acetaminophen [From Tylenol] AdvReac Other Verified 11/29/21 11:50 ondansetron AdvReac Nausea/Vom/ Verified 11/29/21 11:50 [From Zofran (as Diarrhea hydrochloride)] Social History Smoking Status: Never smoker ROS ROS ED Constitutional Constitutional ED: Reports body ache(s), chills, fatigue, fever(s), headache(s) and malaise Eyes Eyes: Denies change in vision or diplopia ENT ENT ED: Denies rhinorrhea or sore throat Cardiovascular Cardiovascular: Reports as per HPI and chest pain; Denies palpitations Respiratory/Chest Respiratory/Chest: Reports cough; Denies dyspnea or dyspnea on exertion Gastrointestinal Gastrointestinal: Reports abdominal pain, diarrhea and nausea; Denies vomiting Genitourinary Genitourinary ED: Denies dysuria or hematuria Musculoskeletal Musculoskeletal: Reports as per HPI, arthralgias, back pain, extremity pain and myalgias; Denies neck pain Integumentary Denies abscess or rash Neurologic Neurologic: Reports headache(s); Denies paresthesias or weakness Psychiatric Psychiatric: Denies anxiety or suicidal thoughts EXAM Physical Exam Const Vital Signs: 11/29/21 11:50 11/29/21 14:57 Temperature 99 F 98.5 F Temperature Source Temporal Oral Pulse Rate 83 84 Respiratory Rate 18 16 Blood Pressure 134/54 H 153/77 H Blood Pressure Mean 80 102 Pulse Ox 95 95 Oxygen Delivery Method Room Air Room Air Positive well nourished and well developed Constitutional Narrative: Malaised-appearing, no distress General Appearance ED: well developed and NAD HEENT Reports moist mucous membranes normocephalic and atraumatic Eyes PERRL and EOMs intact bilaterally Neck full ROM and supple Resp normal respiratory effort and clear to auscultation bilaterally Cardio regular rate, regular rhythm and no murmurs Rate: Negative for tachycardic GI non-distended GI Narrative: No fluid wave/ascites. Mild tenderness suprapubic, no guarding or rebound tenderness. Auscultation: normoactive bowel sounds Palpation: soft Back/Spine no CVA tenderness General Back: other FROM Extremity normal to inspection and no calf tenderness General Extremety ED: Negative for edema, pulses abnormal or tenderness General Extremity: Negative for edema or pulses abnormal Neuro oriented x3, CN's II-XII intact bilaterally and no sensory deficits noted Sensorium / Orientation: awake and alert Motor Exam: strength 5/5 throughout Psych Mood & Affect: anxious and tearful Skin no rashes or lesions noted and no wounds MDM MDM MDM Narrative Medical decision making narrative: Urinalysis obtained shows no acute infection, and her rapid COVID/influenza were both negative. She was given a dose of IV Toradol in addition to a liter of IV fluids and Reglan 5 mg IV, she felt much better on reevaluation and her abdominal pain was resolved. Patient has several family members that although she was not in close contact with him, have had stomach viruses recently, which I suspect she has. I reassured her, she is comfortable going home right now, I do not think we need to do any more testing here right now, except for COVID PCR since she just started getting sick to verify that this was not a false negative COVID test as many of her symptoms are compatible with COVID. She is comfortable with that plan, will be prescribed Reglan which really helped her nausea here. Lab Data Attestation: I reviewed the patient's lab results. Labs: Laboratory Results - last 24 hr 11/29/21 14:56 Urine Color Yellow Urine Clarity Clear Urine pH 6.0 Ur Specific [place] 1.015 Urine Protein Negative Urine Glucose (UA) Normal Urine Ketones 5 H Urine Occult Blood 10 H Urine Nitrite Negative Urine Bilirubin Negative Urine Urobilinogen Normal Ur Leukocyte Esterase 25 H Urine RBC 0-5 SEEN Urine WBC 0-5 SEEN Ur Squamous Epith Cells 0-5 SEEN Urine Bacteria 1+ Urine Mucus 2+ Discharge Plan Triage Chief Complaint: Back Other Complaint: Abd Pain Fever ED Provider: Real Mcdermott Dx/Rx/DC Orders Clinical Impression: Acute viral syndrome, Mild dehydration, Lower abdominal pain, Nausea vomiting and diarrhea Instructions: ED Viral Syndrome (Adult) Prescriptions: New metoclopramide HCl [metoclopramide HCl] 10 MG tablet 10 mg PO Q6H PRN (Reason: nausea and vomiting) Qty: 20 RF: 0 No Action diazepam 5 MG tablet 5 mg PO TID PRN (Reason: Anxiety) RF: 0 pantoprazole 40 MG tablet 40 mg PO DAILY PRN (Reason: gerd) RF: 0 oxycodone-acetaminophen 1 TABLET tablet 1 tab PO BID PRN PRN (Reason: pain) RF: 0 pregabalin 50 MG capsule 50 mg PO BID RF: 0 promethazine 25 MG tablet 25 mg PO Q4H PRN PRN (Reason: Nausea) RF: 0 ergocalciferol (vitamin D2) [Vitamin D2] 1,250 mcg (50,000 unit) capsule RF: 0 oxycodone 5 mg capsule 5 mg PO Q6H PRN (Reason: pain) 3 Days Qty: 12 RF: 0 oxycodone 5 mg capsule 5 mg PO Q6H PRN (Reason: pain) 3 Days Qty: 10 RF: 0 tizanidine 4 mg tablet 4 mg PO BID PRN (Reason: muscle spasticity) Qty: 10 RF: 0 Primary Care Provider: Benson Mckeon Referrals: Benson Mckeon DO [Primary Care Provider] - 3-5 Days if not improving Disposition Disposition: Home, Self Care
[2021-11-29] MEDS: Metoclopramide 10 MG/2 ML Vial 5 MG IV (14:51)
[2021-11-29] MEDS: 0.9% Normal Saline 1,000 ML 999 ML IV (14:51)
[2021-11-29] MEDS: Ketorolac 30 MG/ML Syringe IV (14:52)
[2021-11-29 14:57] VITALS: BP 153/77; PULSE 84; RESP 16; TEMP 36.9; O2SAT 95
[2021-11-29 15:20] LABS: Color, Urine Yellow (Yellow); Glucose, Dipstick Normal (Normal); Ketone-Dipstick 5 mg/dl (Negative); Leukocyte Esterase-Dipstick 25 /ul (Negative); Nitrite-Dipstick Negative (Negative); Occult Blood-Urine 10 /ul (Negative); Protein-Dipstick Negative (Negative); Specific Gravity, Urine 1.015 (1.002-1.030); Urine Bilirubin Dipstick Negative (Negative); Urine Clarity Clear (Clear); Urine Urobilinogen Normal (Normal)
[2021-11-29 15:34] LABS: Red Blood Cells-Urine 0-5 SEEN /hpf (0-5); White Blood Cells 0-5 SEEN /hpf (0-5)
[2021-11-29 15:35] LABS: Bacteria 1+ /hpf (None Seen); Mucous, Urine 2+ /hpf (<or=2+); Squamous Epithelial Cells - UA 0-5 SEEN /hpf (5-10)
== END 2021-11-29 16:12 | disposition home or self-care (01) ==
PROVIDERS: Emergency Provider Emergency Medicine; PCP Preventive Medicine Occupational Medicine; Visit Provider Emergency Medicine
DX: B34.9 Viral infection, unspecified (principal); M06.9 Rheumatoid arthritis, unspecified; E86.0 Dehydration; F41.9 Anxiety disorder, unspecified; G89.4 Chronic pain syndrome; Z51.5 Encounter for palliative care; Z79.891 Long term (current) use of opiate analgesic; Z79.899 Other long term (current) drug therapy
CPT/HCPCS: 81001; 87428; 87635; 96361; 96374; 96375; 99283; J7030; A4216; U0003; U0005

== ENCOUNTER → 2023-04-19 | Outpatient (CLI) | payer BC, MEDICAID, SELFPAY | END | disposition home or self-care (01) | PROVIDERS: PCP Preventive Medicine Occupational Medicine | DX: Z79.891 Long term (current) use of opiate analgesic (principal) | CPT/HCPCS: 93005 ==

== ENCOUNTER 2023-04-22 22:46 | Emergency (ER) | payer BC, MEDICAID, SELFPAY ==
[2023-04-22 22:47] VITALS: BP 152/73; PULSE 78; RESP 12; TEMP 36.4; O2SAT 97; BMI 25.4
--- NOTE | 2023-04-22 23:15 | EDS_ITS ---
HPI History of Present Illness Chief Complaint: Chest Pain Informant: patient, spouse/S.O. and EMS Narrative Narrative: Patient has been having midsternal chest discomfort off and on for weeks. Seem to occur randomly and associated with shortness of breath, discomfort in her upper back between her shoulder blades, and palpitations at times. Nonpleuritic. Started tonight around 1.5 hours prior to evaluation, is much better now than it was earlier, and for the first time that she can recall it involve discomfort in her left upper extremity. She has no history of heart disease and no risk factors. Her mom had heart disease but not until she was in her 60s. 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 She does not have ascites. She is a vegan, she has lost a lot of weight. She states she is very focused on her blood pressure. 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 It is very difficult to get details about the history, because even when asking about how long the episodes of chest discomfort been lasting, she goes back to providing information about her blood pressure readings. [facility] Medical History Anxiety Arthritis Chronic pain syndrome Cirrhosis of liver Kidney atrophy Low platelet count Rheumatoid arthritis Home Medications diazepam 5 mg tablet 5 mg PO TID PRN Anxiety 02/20/17 [History Last Taken 12/20/17] pantoprazole 40 mg tablet,delayed release 40 mg PO DAILY PRN gerd 11/18/17 [History Last Taken 12/20/17] promethazine 25 mg tablet 25 mg PO Q4H PRN PRN Nausea 04/16/20 [History Last Taken Unknown] ergocalciferol (vitamin D2) 1,250 mcg (50,000 unit) capsule (Vitamin D2) 1,250 mcg PO MO 10/30/20 [History Last Taken Unknown] oxycodone 5 mg capsule 5 mg PO Q6H PRN pain 3 days #12 caps 10/30/20 [Rx Last Taken Unknown] oxycodone 5 mg capsule 5 mg PO Q6H PRN pain 3 days #10 caps 06/01/22 [Rx Last Taken Unknown] metoclopramide HCl 10 mg tablet 10 mg PO Q6H PRN nausea and vomiting #20 tabs 11/29/21 [Rx Last Taken Unknown] methadone 5 mg tablet 7.5 mg PO TID 04/22/23 [History Last Taken Unknown] Allergy/AdvReac Type Severity Reaction Status Date / Time adhesive tape Allergy Rash Verified 11/29/21 11:50 alprazolam [From Xanax] Allergy Unknown Verified 11/29/21 11:50 cyclobenzaprine HCl Allergy Unknown Verified 11/29/21 11:50 [From Flexeril] ibuprofen Allergy Nausea Verified 11/29/21 11:50 Iodinated Contrast Media Allergy Other Verified 11/29/21 11:50 [DYEE] prochlorperazine edisylate Allergy Unknown Verified 11/29/21 11:50 [From Compazine] prochlorperazine maleate Allergy Unknown Verified 11/29/21 11:50 [From Compazine] red dye Allergy Nausea Verified 11/29/21 11:50 acetaminophen [From Tylenol] AdvReac Other Verified 11/29/21 11:50 ondansetron AdvReac Nausea/Vom/ Verified 11/29/21 11:50 [From Zofran (as Diarrhea hydrochloride)] Family History no significant family his Social History household members: spouse housing: house Smoking Status: Never smoker ROS ROS ED Constitutional Constitutional ED: Denies chills or fever(s) Eyes Eyes: Denies change in vision or diplopia ENT ENT ED: Denies rhinorrhea or sore throat Cardiovascular Cardiovascular: Reports as per HPI, chest pain, palpitations and radiating jaw, neck or arm pain; Denies orthopnea, pedal edema or syncope Respiratory/Chest Respiratory/Chest: Reports dyspnea; Denies cough or orthopnea Gastrointestinal Gastrointestinal: Denies nausea or vomiting Genitourinary Genitourinary ED: Denies dysuria or hematuria Musculoskeletal Musculoskeletal: Denies back pain or neck pain Integumentary Denies abscess or rash Neurologic Neurologic: Denies headache(s), paresthesias or weakness Psychiatric Psychiatric: Denies suicidal ideation or suicidal thoughts EXAM Physical Exam Const Vital Signs: 04/22/23 22:47 04/22/23 22:53 04/22/23 23:14 Temperature 97.6 F L Temperature Source Oral Pulse Rate 78 Respiratory Rate 12 Respiratory Effort Normal Blood Pressure 152/73 H Blood Pressure Mean 99 Pulse Ox 97 Oxygen Delivery Method Room Air Room Air 04/22/23 23:46 04/23/23 00:00 Temperature Temperature Source Pulse Rate 68 73 Respiratory Rate 18 Respiratory Effort Blood Pressure 139/76 H 128/69 H Blood Pressure Mean 97 88 Pulse Ox 94 Oxygen Delivery Method Room Air Positive well nourished and well developed General Appearance ED: well developed and NAD HEENT Reports moist mucous membranes normocephalic and atraumatic Eyes PERRL and EOMs intact bilaterally Neck full ROM and supple Resp normal respiratory effort and clear to auscultation bilaterally Cardio regular rate, regular rhythm and no murmurs GI non-distended GI Narrative: Mild epigastric tenderness otherwise benign abdomen Auscultation: normoactive bowel sounds Palpation: soft Back/Spine no CVA tenderness General Back: other FROM Extremity normal to inspection General Extremety ED: Negative for edema, pulses abnormal or tenderness General Extremity: Negative for edema or pulses abnormal Neuro oriented x3, CN's II-XII intact bilaterally and no sensory deficits noted Sensorium / Orientation: awake and alert Motor Exam: strength 5/5 throughout Psych Mood & Affect: anxious and tearful Skin no rashes or lesions noted and no wounds Heart Score History: Moderately Suspicious ECG: Normal Age: >45 - <65 years Risk Factors: No Risk Factors Troponin: </= Normal Limit Score: 2 MDM MDM MDM Narrative Medical decision making narrative: Although symptoms are concerning, her troponin is in single digits at a level of 5, she does not want to wait for a second 1, she understands the slight increased risk this carries of ACS although she is low risk overall and has a heart score of 2. Her EKG is normal. Her symptoms resolved before she was given any nitroglycerin and she feels better and does not want to go home. I advised close outpatient follow-up with her doctor, differential here does include episodes of unstable angina, dysrhythmias, less likely to be pulmonary embolus given the symptoms and her lack of tachycardia/hypoxemia, GI/esophageal etiologies. With regards to her blood pressure we discussed this at length, she is wondering at what number she should come to the ER. I advised her that I would not necessarily come to the ER for any specific number, but rather if she has a high number associated with concerning symptoms which we discussed examples of. Here initially her blood pressure was 152, while she was extremely anxious and crying, I went up to 177 systolic, and on reevaluation she is resting and feeling better and it is 128/69. Lab Data Attestation: I reviewed the patient's lab results. Labs: Laboratory Results - last 24 hr 04/22/23 22:26 WBC 3.5 L RBC 4.31 Hgb 13.7 Hct 41.4 MCV 96.1 MCH 31.8 MCHC 33.1 RDW Std Deviation 47.0 H RDW Coeff of Maximo 13.2 Plt Count 88 L MPV 10.3 Immature Gran % (Auto) 0.300 Neut % (Auto) 39.3 L Lymph % (Auto) 50.0 H [place] % (Auto) 7.2 Eos % (Auto) 2.9 Baso % (Auto) 0.3 Absolute Neuts (auto) 1.4 L Absolute Lymphs (auto) 1.74 Nucleated RBC % 0 Sodium 138 Potassium 3.6 Chloride 103 Carbon Dioxide 28.0 Anion Gap 7 BUN 6 L Creatinine 0.78 Estim Creat Clear Calc 58.39 Est GFR (MDRD) Af Amer 96 Est GFR (MDRD) Non-Af 79 BUN/Creatinine Ratio 7.7 L Glucose 93 Calcium 9.7 Troponin I High Sens 5 Radiography Diagnostic Testing: Clinical Impression(s) from Imaging Studies Chest X-Ray 04/22/23 23:50 IMPRESSION: No acute cardiopulmonary disease. Electronically Signed: Maddi Farr MD at 0:37 EDT , Rhythm Strip Rhythm Strip: Sinus Rhythm Rate: 65 Ectopy: None EKG Initial EKG: Attestation: I personally reviewed and interpreted this EKG as follows: Interpretation: Sinus Rhythm and No Acute Injury Pattern Comments: Normal EKG Discharge Plan Triage Chief Complaint: Chest Pain ED Provider: Real Mcdermott Dx/Rx/DC Orders Clinical Impression: Intermittent chest pain, Palpitations Instructions: ED Chest Pain, Uncertain Cause Prescriptions: No Action diazepam 5 MG tablet 5 mg PO TID PRN (Reason: Anxiety) Patient Comments: take 1 tablet by mouth three times a day if needed for anxiety pantoprazole 40 MG tablet 40 mg PO DAILY PRN (Reason: gerd) promethazine 25 MG tablet 25 mg PO Q4H PRN PRN (Reason: Nausea) ergocalciferol (vitamin D2) [Vitamin D2] 1,250 mcg (50,000 unit) capsule 1,250 mcg PO MO Patient Comments: take 1 capsule by mouth every week oxycodone 5 mg capsule 5 mg PO Q6H PRN (Reason: pain) 3 Days Qty: 12 0RF oxycodone 5 mg capsule 5 mg PO Q6H PRN (Reason: pain) 3 Days Qty: 10 0RF metoclopramide HCl [metoclopramide HCl] 10 MG tablet 10 mg PO Q6H PRN (Reason: nausea and vomiting) Qty: 20 0RF methadone 5 mg tablet 7.5 mg PO TID Patient Comments: TAKE 1 & 1/2 (ONE AND ONE-HALF) TABLETS BY MOUTH EVERY 8 HOURS SCHEDULED Primary Care Provider: Benson Mckeon Referrals: Benson Mckeon DO [Primary Care Provider] - [facility] appointment Disposition Disposition: Home, Self Care
[2023-04-22 23:40] LABS: Absolute Lymphocyte Count 1.74 X10^3/uL (0.83-4.51); Absolute Neutrophil Count 1.4 X10^3/uL (2.0-7.7); Basophil# 0.01 X10^3/uL; Basophil% 0.3 % (0-1); Eosinophils% 2.9 % (0-5); Hematocrit 41.4 % (37-47); Hemoglobin 13.7 g/dL (12.0-15.0); Lymphocyte # 1.74 X10^3/ul (0.83-4.51); Mean Corp Hgb Conc 33.1 g/dL (32-36); Mean Corpuscular Hgb 31.8 pg (27.0-32.0); Mean Corpuscular Volume 96.1 fL (81-99); Mean Platelet Vol. 10.3 fl (6.2-12.0); Monocyte# 0.25 X10^3/uL; Monocyte% 7.2 % (0-10); NRBC Flagged by Analyzer 0 % (0-5); Neutrophil # 1.37 X10^3/uL (2.7-7.7); Neutrophil % 39.3 % (47-70); POSITIVE COUNT YES; Platelet Count 88 K/mm3 (150-450); RBC Distribution Width CV 13.2 % (11.6-14.6); Red Blood Count 4.31 M/mm3 (4.2-5.4); White Blood Count 3.5 K/mm3 (4.4-11.0)
[2023-04-22 23:46] VITALS: BP 139/76; PULSE 68; RESP 18; O2SAT 94
--- NOTE | 2023-04-22 23:50 | RAD_ITS ---
STUDY: X-RAY CHEST REASON FOR EXAM: Female, 63 years old. chest pain TECHNIQUE: Single AP portable view of the chest. COMPARISON: 11/29/2020. FINDINGS: The lungs are clear and expanded. There is no demonstrated pleural abnormality. Normal size heart. Normal mediastinum and alexandru. Normal visualized pulmonary arteries. Normal visualized aortic arch and descending thoracic aorta. Normal visualized thoracic spine. Normal visualized ribs, clavicles, and shoulders. There is no demonstrated abnormality of the visualized soft tissue structures of the upper abdomen. RAD/Chest 1 View (Portable) IMPRESSION: No acute cardiopulmonary disease. Electronically Signed: Maddi Farr MD at 0:37 EDT ,
[2023-04-22 23:53] LABS: Anion Gap 7 (5-15); BUN 6 mg/dL (7-18); BUN/Creat Ratio 7.7 RATIO (10-20); Calcium,Total 9.7 mg/dL (8.5-10.1); Chloride 103 mmol/L (98-107); Creatinine, Serum 0.78 mg/dL (0.55-1.02); EST Glomerular Filtration Rate 79 mL/min (>60); Est Glom Filt Rate - Afr Amer 96 mL/min (>60); Estimated Creatinine Clearance 58.39 ml/min; Glucose 93 mg/dL (74-106); Potassium 3.6 mmol/L (3.5-5.1); Sodium Level 138 mmol/L (136-145); Troponin-I HS (w/2H Reflex) 5 pg/mL (3.0-54.0)
[2023-04-23] VITALS: BP 128/69; PULSE 73
[2023-04-23 01:21] LABS: Reflex Troponin-HS? (from REC) Y
== END 2023-04-23 01:00 | disposition home or self-care (01) ==
PROVIDERS: Emergency Provider Emergency Medicine; PCP Preventive Medicine Occupational Medicine; Visit Provider Emergency Medicine
DX: R07.9 Chest pain, unspecified (principal); K74.60 Unspecified cirrhosis of liver; R00.2 Palpitations; Z79.899 Other long term (current) drug therapy
CPT/HCPCS: 71045; 80048; 84484; 85025; 93005; 99285